=== PATIENT | female | born 1940 | race Caucasian/White ===

== ENCOUNTER → 2016-07-16 | Outpatient (REF) | payer MEDICARE, OTHER ==
[~2016-07-16] MED LIST: /PANT40TA PO; ALEV220C2 PO; ASPI81TA2 PO; BONI150T PO; FEXO60TA PO; FURO40TA2 PO; LOPR50TA PO; METO100T3 PO; TORS100T12 PO; WARF5TAB66 PO
[2016-07-17 12:23] LABS: FREE T4 1.36 NG/DL (0.76-1.46)
[2016-07-18 10:28] LABS: HEPATITIS B SURFACE ANTIBODY NEGATIVE (POSITIVE)
== END ==
LOC: M SFHCCLAY 15:10
PROVIDERS: ATTEND Family Medicine
DX: I48.2 Chronic atrial fibrillation (principal); Z11.59 Encounter for screening for other viral diseases
CPT/HCPCS: 36415; 84439; 84443; 86706; 86708; 87340; G0463

== ENCOUNTER → 2016-08-26 | Outpatient (CLI) | payer MEDICARE, OTHER ==
[~2016-08-26] VITALS: Ht 166.4 cm; Wt 108.9 kg
[~2016-08-26] MED LIST changes: +HYDR25TAB PO; +LIDOCAINE 2% INJ 100 MG/5 ML SDV (FOR ANES.) As Ordered ONE; +METO100T PO; +NS 1,000 ML IV ONE; +PANT40TA2 PO; +PROPOFOL 200 MG/20 ML VIAL As Ordered ONE; +XARE10TA PO
--- NOTE | 2016-08-26 08:31 | ROOR ---
Patient Name: Teresa Alejo Procedure Date: 08/26/2016 7:51 AM Date of : 1940 Age: 76 Room: [facility] Gender: Female Note Status: Finalized Procedure: Colonoscopy Indications: Screening for colorectal malignant neoplasm Providers: Nader GREER MD Referring MD: Cesar Mccollum MD Requesting Provider: Medicines: Monitored Anesthesia Care Complications: No immediate complications. Procedure: Pre-Anesthesia Assessment: - The heart rate, respiratory rate, oxygen saturations, blood pressure, adequacy of pulmonary ventilation, and response to care were monitored throughout the procedure. The Colonoscope was introduced through the anus and advanced to the ileocecal valve. The colonoscopy was performed with moderate difficulty due to dolichocolon. Successful completion of the procedure was aided by changing the patient's position, using manual pressure and withdrawing and reinserting the scope. The patient tolerated the procedure well. The quality of the bowel preparation was good. Findings: The perianal and digital rectal examinations were normal. A frond-like/villous non-obstructing medium-sized mass was found in the proximal ascending colon. The mass was non-circumferential. The mass measured three cm in length. This was biopsied with a cold forceps for histology. The exam was otherwise without abnormality on direct and retroflexion views. Impression: - Rule out malignancy, 3 cm polypoid tumor in the proximal ascending colon. (NOT REMOVED) This was biopsied. - The examination was otherwise normal on direct and retroflexion views. Recommendation: - Refer to a surgeon at appointment to be scheduled. Nader Greer MD Nader GREER MD 08/26/2016 8:31:14 AM This report has been signed electronically. Number of Addenda: 0 Note Initiated On: 08/26/2016 7:51 AM Estimated Blood Loss: Estimated blood loss: none.
[2016-08-26 08:55] VITALS: BP 132/92
== END | disposition home or self-care (01) ==
LOC: M OPP 07:07
PROVIDERS: ATTEND Internal Medicine Gastroenterology
DX: Z12.11 Encounter for screening for malignant neoplasm of colon (principal); D37.4 Neoplasm of uncertain behavior of colon; Q43.9 Congenital malformation of intestine, unspecified; I10 Essential (primary) hypertension; I48.91 Unspecified atrial fibrillation; K21.9 Gastro-esophageal reflux disease without esophagitis; M19.90 Unspecified osteoarthritis, unspecified site; M81.0 Age-related osteoporosis without current pathological fracture; Z78.0 Asymptomatic menopausal state; Z86.711 Personal history of pulmonary embolism; Z86.718 Personal history of other venous thrombosis and embolism; R06.83 Snoring; D68.62 Lupus anticoagulant syndrome; J30.9 Allergic rhinitis, unspecified; Z91.013 Allergy to seafood; Z79.899 Other long term (current) drug therapy; Z79.01 Long term (current) use of anticoagulants; Z87.891 Personal history of nicotine dependence

== ENCOUNTER 2016-10-06 06:08 | Inpatient (IN) | payer MEDICARE, OTHER ==
[~2016-10-06] VITALS: Ht 170.2 cm; Wt 114.4 kg
[2016-10-06] VITALS (8 sets, daily range): BP systolic 120–140; BP diastolic 78–88
[~2016-10-06 06:08] MED LIST changes: +ALLE180T33 PO; -LIDOCAINE 2% INJ 100 MG/5 ML SDV (FOR ANES.) As Ordered ONE; -METO100T PO; +METO100T5 PO; +METO50TA7 PO; -NS 1,000 ML IV ONE; -PROPOFOL 200 MG/20 ML VIAL As Ordered ONE
[2016-10-06] MEDS ORDERED: LR 1,000 ML IV SCH ×2 (06:15→12:15)
[2016-10-06] MEDS ORDERED: ALVIMOPAN 12 MG CAPSULE (ENTEREG) PO ONE (07:00)
[2016-10-06] MEDS ORDERED: ERTAPENEM SODIUM 1 GM in NS MINI-BAG PLUS 50 ML IV ONE (07:00)
[2016-10-06] MEDS ORDERED: MIDAZOLAM INJ 2 MG/2 ML VIAL (J2250) As Ordered ONE (07:02)
[2016-10-06] MEDS ORDERED: LIDOCAINE 1% SDV INJ 30 ML VIAL As Ordered ONE (07:17)
[2016-10-06] MEDS ORDERED: BUPIVACAINE HCL 0.25% 30 ML VIAL As Ordered ONE (07:18)
[2016-10-06] MEDS ORDERED: NEOSTIGMINE 1MG/ML 5 ML SYRINGE (J2710) As Ordered ONE (07:56)
[2016-10-06] MEDS ORDERED: ROCURONIUM BROMIDE 50 MG/5 ML VIAL/SYRINGE As Ordered ONE (07:56)
[2016-10-06] MEDS ORDERED: KETOROLAC 60 MG/2 ML VIAL (J1885) As Ordered ONE (07:56)
[2016-10-06] MEDS ORDERED: GLYCOPYRROLATE INJ 0.2 MG/ML 2 ML VIAL As Ordered ONE (07:56)
[2016-10-06] MEDS ORDERED: ONDANSETRON 4MG/2ML VIAL (J2405) As Ordered ONE (07:56)
[2016-10-06] MEDS ORDERED: LIDOCAINE 2% INJ 100 MG/5 ML SDV (FOR ANES.) As Ordered ONE (07:56)
[2016-10-06] MEDS ORDERED: PROPOFOL 200 MG/20 ML VIAL As Ordered ONE (07:56)
[2016-10-06] MEDS ORDERED: dexameTHASONE 4 MG/ML 1ML VIAL (J1100) As Ordered ONE (07:56)
[2016-10-06] MEDS ORDERED: PHENYLephrine HCL 500 MCG/5 ML (100MCG/ML) SYRINGE (J2370) As Ordered ONE (08:13)
[2016-10-06] MEDS ORDERED: fentaNYL 100 MCG/2 ML INJECTION (J3010) As Ordered ONE (08:19)
[2016-10-06] MEDS ORDERED: BUPIVACAINE LIPOSOME/PF 1.3% 20 ML VIAL (13.3MG/ML)(EXPAREL) As Ordered ONE (10:37)
[2016-10-06] MEDS: LR 1,000 ML IV SCH (11:08)
[2016-10-06] MEDS ORDERED: NORCO, ANEXSIA 5/325MG TABLET (HYDROcodone/ACETAMINOPHEN) PO PRN ×2 (11:15)
[2016-10-06] MEDS ORDERED: MORPHINE 4 MG/ML 1ML SYRINGE IV PRN (11:15)
[2016-10-06] MEDS ORDERED: KETOROLAC 30 MG/ML VIAL (J1885) IV PRN (11:15)
[2016-10-06] MEDS ORDERED: ONDANSETRON 4MG/2ML VIAL (J2405) IV PRN ×2 (11:15→12:15)
[2016-10-06] MEDS ORDERED: METOCLOPRAMIDE INJ 10MG/2ML VIAL (J2765) IV PRN (12:15)
[2016-10-06] MEDS ORDERED: PERCOCET 5MG/325MG TAB PO PRN (12:15)
[2016-10-06] MEDS ORDERED: fentaNYL 100 MCG/2 ML INJECTION (J3010) IV PRN (12:15)
[2016-10-06] MEDS ORDERED: MEPERIDINE INJ 25 MG/ML VIAL (J2175) IV PRN (12:15)
[2016-10-06] MEDS: ENOXAPARIN 40 MG/0.4 ML SYRINGE (J1650) SC SCH (14:12)
[2016-10-06] MEDS: PANTOPRAZOLE 40MG INJ (PROTONIX) (C9113) IV SCH (14:12)
[2016-10-06] MEDS: SENOKOT S TAB PO SCH ×2 (14:12→20:19)
[2016-10-06] MEDS: METOPROLOL TART 50 MG TAB PO SCH ×2 (16:11→20:24)
[2016-10-06] MEDS: ALVIMOPAN 12 MG CAPSULE (ENTEREG) PO SCH (20:27)
[2016-10-06] MEDS ORDERED: METOPROLOL TART 25 MG TABLET PO SCH (21:00)
[2016-10-07] VITALS: BP 118/72
[2016-10-07] MEDS: LR 1,000 ML IV SCH ×4 (00:10→21:10)
[2016-10-07 04:00] VITALS: BP 122/68
[2016-10-07 08:00] VITALS: BP 142/84
[2016-10-07] MEDS: ALVIMOPAN 12 MG CAPSULE (ENTEREG) PO SCH ×2 (08:48→21:09)
[2016-10-07] MEDS: SENOKOT S TAB PO SCH ×2 (08:48→21:09)
[2016-10-07] MEDS: METOPROLOL TART 50 MG TAB PO SCH ×2 (08:49→21:10)
[2016-10-07] MEDS: PANTOPRAZOLE 40MG INJ (PROTONIX) (C9113) IV SCH (08:49)
[2016-10-07] MEDS: ENOXAPARIN 40 MG/0.4 ML SYRINGE (J1650) SC SCH (08:50)
--- NOTE | 2016-10-07 11:04 | IPNPDOC ---
Subjective General Date/Time Seen The patient was seen on 10/07/16 at 10:45. Subject Chief Complaint/History The patient is a 76-year-old female postop day 1 after laparoscopic right colectomy. She reports she is comfortable. Not passing any gas yet. She denies any nausea. She is tolerating liquids. She has walked around room. Current Medications Current Medications Current Medications Acetaminophen (Tylenol Tab) 650 mg Q4HP PRN PO MILD PAIN or TEMP > 101; Start 10/06/16 at 11:15; Stop 11/05/16 at 11:14 Acetaminophen/ Hydrocodone Bitart (Manlius, Anexsia 5/325) 1 tab Q4HP PRN PO MODERATE PAIN (PS 5-7); Start 10/06/16 at 11:15; Stop 10/13/16 at 11:14 Acetaminophen/ Hydrocodone Bitart (Manlius, Anexsia 5/325) 2 tab Q6HP PRN PO SEVERE PAIN (PS 8-10); Start 10/06/16 at 11:15; Stop 10/13/16 at 11:14 Alvimopan (Entereg) 12 mg BID PO Last administered on 10/07/16 08:48; Start at 21:00; Stop 10/13/16 at 20:59 Enoxaparin Sodium (Lovenox) 40 mg DAILY SC Last administered on 10/07/16 08:50 ; Start 10/06/16 at 09:00; Stop 10/11/16 at 08:59; Status Future hold Fentanyl Citrate (Sublimaze) 25 mcg Q5MP PRN IV MODERATE PAIN (PS 4-7); Start 10/06/16 at 12:15; Stop 10/06/16 at 13:15; Status DC Ketorolac Tromethamine (ToRADol) 30 mg Q6HP PRN IV MILD/MODERATE PAIN (PS 1-7) ; Start 10/06/16 at 11:15; Stop 10/11/16 at 11:14 Lactated Ringer's 1,000 ml @ 100 mls/hr Q10H IV Last administered on 07:09; Start 10/06/16 at 06:15; Stop 10/06/16 at 11:44; Status DC Lactated Ringer's 1,000 ml @ 100 mls/hr Q10H IV ; Start 10/06/16 at 12:15; Stop 10/06/16 at 13:15; Status DC Lactated Ringer's 1,000 ml @ 125 mls/hr Q8H IV Last administered on 10/07/16 07:32; Start 10/06/16 at 11:08; Stop 11/05/16 at 11:07 Meperidine HCl (Demerol) 12.5 mg Q5MP PRN IV SHIVERING; Start 10/06/16 at 12:15 ; Stop 10/06/16 at 13:15; Status DC Metoclopramide HCl (REGLAN INJection) 10 mg Q6HP PRN IV NAUSEA OR VOMITING; Start 10/06/16 at 12:15; Stop 10/06/16 at 13:15; Status DC Metoprolol Tartrate (Lopressor) 25 mg BID PO ; Start 10/06/16 at 21:00; Stop at 21:00; Status DC Metoprolol Tartrate (Lopressor) 50 mg BID PO Last administered on 10/07/16 08: 49; Start 10/06/16 at 09:00; Stop 11/05/16 at 08:59 Morphine Sulfate (Morphine Sulfate Inj) 4 mg Q2HP PRN IV SEVERE PAIN (PS 8-10) ; Start 10/06/16 at 11:15; Stop 10/13/16 at 11:14 Ondansetron HCl (ZOFRAN INJection) 4 mg Q4HP PRN IV NAUSEA OR VOMITING; Start 10/06/16 at 12:15; Stop 10/06/16 at 13:15; Status DC Ondansetron HCl (ZOFRAN INJection) 4 mg Q6HP PRN IV NAUSEA OR VOMITING; Start 10/06/16 at 11:15; Stop 11/05/16 at 11:14 Oxycodone/ Acetaminophen (Percocet 5mg/ 325mg Tablet) 1 tab ASDIRECTED PRN PO MILD/MODERATE PAIN (PS 1-7); Start 10/06/16 at 12:15; Stop 10/06/16 at 13:15; Status DC Pantoprazole Sodium (Protonix) 40 mg DAILY IV Last administered on 10/07/16 08 :49; Start 10/06/16 at 09:00; Stop 7/26/17 at 08:59 Senna/Docusate Sodium (Senokot S) 1 tab BID PO Last administered on 10/07/16t 08:48; Start 10/06/16 at 09:00; Stop 11/05/16 at 08:59 Allergies Coded Allergies: ENVIROMENTAL (Unverified Allergy, Mild, 10/06/16) SEAFOOD (Verified Adverse Reaction, Mild, NAUSEA/VOMITING, 08/18/16) Objective Physical Examination Examination GENERAL APPEARANCE:Patient seen, laying in bed, awake, alert, and oriented. Comfortable, in no acute distress. SKIN: Warm and moist. HEENT: Normocephalic, atraumatic. Abanda palpebral conjunctiva, anicteric sclerae. Lips and mucosa appear moist. NECK: Supple, no thyromegaly. No obvious jugular venous distention. LUNGS: Clear to auscultation bilaterally. No wheezing appreciated. HEART: No chest wall abnormalities. Regular rate and rhythm with no murmurs appreciated. ABDOMEN: Abdomen is obese, soft, round, mildly distended, slightly tympanitic. Port sites and periumbilical extraction site are clean and dry. The dressings over the extraction site was removed. Incision is intact. Minimally tender over the extraction site incision. Active bowel sounds.. EXTREMITIES: Extremities have no deformities. No edema identified. Vital Signs Vital Signs Date Time Temp Pulse Resp B/P (MAP) Pulse Ox O2 Delivery O2 Flow Rate FiO2 10/07/16 08:49 87 142/84 10/07/16 04:00 99.6 18 94 Room Air 10/06/16 14:05 1.0 I&Os I&O- Last 24 Hours up to 6 AM 10/07/16 06:00 Intake Total 3840 ml Output Total 1200 ml Balance 2640 ml Impression Postop day 1 right colectomy for ascending colon polyp pathology is pending Instructed her to ambulate to the hallways today. The Hutton catheter will be discontinued. We will get labs tomorrow and decide if we can restart her Xarelto. I'll advance her diet to regular diet. Plan / VTE VTE Prophylaxis Ordered?: Yes Plan / Urinary Catheter Urinary Catheter: D/C Hutton Reason for insertion/continuin: Perioperative TITUS VALDEZ MD Oct 07, 2016 11:04
[2016-10-07 12:00] VITALS: BP 122/89
[2016-10-07 16:00] VITALS: BP 136/78
[2016-10-07 20:00] VITALS: BP 122/87
[2016-10-08] VITALS: BP 128/64
[2016-10-08] MEDS: ACETAMINOPHEN TAB 650MG DOSE (2X325MG) PO PRN ×2 (01:57→08:45)
[2016-10-08] MEDS: LR 1,000 ML IV SCH (03:08)
[2016-10-08 07:07] LABS: BASO % 0.5 % (0.0-1.0); EOS # 0.1 K/mm3 (0.0-0.50); EOS % 2.2 % (0.0-3.0); LARGE UNSTAINED CELL # 0.1 K/mm3 (0.0-0.4); LARGE UNSTAINED CELL % 1.8 % (0.0-4.0); LYMPH # 1.6 K/mm3 (1.5-4.5); LYMPH % 25.4 % (24.0-44.0); MEAN CORPUSCULAR HEMOGLOBIN 32.3 pg (27.0-33.0); MEAN CORPUSCULAR HGB CONC 33.6 g/dl (32.0-36.5); MEAN CORPUSCULAR VOLUME 96.2 fl (80.0-96.0); MONO # 0.4 K/mm3 (0.0-0.8); NEUTROPHILS # 3.8 K/mm3 (1.8-7.7); NEUTROPHILS % 63.2 % (36.0-66.0); PLATELET COUNT, AUTOMATED 252 k/mm3 (150-450); RED CELL DISTRIBUTION WIDTH 13.8 % (11.5-14.5)
[2016-10-08 07:20] LABS: CALCIUM LEVEL 9.8 MG/DL (8.8-10.2); CREATININE FOR GFR 1.06 MG/DL (0.55-1.02); GLOMERULAR FILTRATION RATE 53.9 (>39); POTASSIUM SERUM 3.8 MEQ/L (3.5-5.1)
[2016-10-08 08:00] VITALS: BP 162/90
[2016-10-08] MEDS: METOPROLOL TART 50 MG TAB PO SCH ×2 (08:44→20:50)
[2016-10-08] MEDS: ENOXAPARIN 40 MG/0.4 ML SYRINGE (J1650) SC SCH (08:46)
[2016-10-08] MEDS: SENOKOT S TAB PO SCH ×2 (08:46→20:49)
[2016-10-08] MEDS: ALVIMOPAN 12 MG CAPSULE (ENTEREG) PO SCH ×2 (08:46→20:49)
[2016-10-08] MEDS: PANTOPRAZOLE 40MG INJ (PROTONIX) (C9113) IV SCH (08:46)
[2016-10-08] MEDS: hydroCHLOROthiazide 25 MG TAB PO SCH (11:49)
[2016-10-08] MEDS ORDERED: SLF 3 ML SYR IV PRN (12:00)
[2016-10-08] MEDS ORDERED: SLF 3 ML SYR IV SCH (14:00)
[2016-10-08 16:00] VITALS: BP 134/88
[2016-10-08] MEDS ORDERED: RIVAROXABAN 20 MG TAB (XARELTO) PO SCH (18:00)
[2016-10-08 20:00] VITALS: BP 141/95
[2016-10-09] VITALS: BP 144/99
[2016-10-09 04:00] VITALS: BP 123/90
[2016-10-09 08:00] VITALS: BP 158/92
[2016-10-09] MEDS: ALVIMOPAN 12 MG CAPSULE (ENTEREG) PO SCH (08:40)
[2016-10-09] MEDS: hydroCHLOROthiazide 25 MG TAB PO SCH (08:40)
[2016-10-09] MEDS: SENOKOT S TAB PO SCH (08:41)
[2016-10-09 08:43] VITALS: BP 158/92
[2016-10-09] MEDS: METOPROLOL TART 50 MG TAB PO SCH (08:43)
[2016-10-09] MEDS ORDERED: PANTOPRAZOLE 40MG TAB (PROTONIX) PO SCH (09:00)
--- NOTE | 2016-10-20 23:44 | ROOPDOC ---
[facility] Report Of Operation Report of Operation DATE OF PROCEDURE: 10/06/16 PREPROCEDURE DIAGNOSES: ascending colon polyp POSTPROCEDURE DIAGNOSES: ascending colon polyp PROCEDURE: Laparoscopic Right Colectomy with Ileo-Colic Anastomosis. SURGEON: Giacomo Sharma MD ENERGY AUDIT ADVISOR: MD Jesse Hernandez Anthonyalta, MS III ANESTHESIA: general ESTIMATED BLOOD LOSS: Approximately 30 mL. COMPLICATIONS: none. REMARKS: a 2 to 3 cm polyp located at just above cecum noted on opening up the specimen. PROCEDURE NOTE: 76 F who underwent screening colonoscopy and was found to have a large polyp at the ascensding colon which was deemed to dangerous to resect endoscopically and sent to us for consideration for colon resection. DESCRIPTION OF PROCEDURE: Patient was given a dose of Invanz preoperatively for wound prophylaxis. She had bowel prep the night prior including doses of metronidazole and neomycin. She was brought to the operating room, placed supine on the table. General endotracheal anesthesia started. Compression boots were placed on her lower extremities for DVT prophylaxis. Hutton catheter was placed for urine output monitoring. Her abdomen then widely prepped and draped in usual sterile fashion. After surgical timeout, we began our surgery. Entry into the abdomen done through a small incision in the left upper quadrant area. A Veress needle was inserted on a controlled fashion. Intra-abdominal insufflation then started using CO2 to a pressure of 15 mmHg. Using the same incision a 5 mm port was placed under direct vision of laparoscope. The insertion site was inspected for injury and none was found. She was placed on the slight reverse Trendelenburg position. There are some adhesions over the midline abdomen which was lysed using harmonic scalpel. After freeing up the area just above the umbilicus and another 5 mm port was placed. A third working port was placed over the left lower quadrant area. Diagnostic laparoscopy there were thick omentum covering most of the colon. In my conversation with Dr. Greer, she told me that he marked the area of the polyp within in the ink tattoo. So I looked for the evidence of tattoo and could not locate this. I started at the cecum going towards the mid transverse colon. The omental adhesions as well as the gastrocolic ligament was freed to be able to look for evidence of tattooing. After not being able to find any tattoo, I palpated from the cecum towards the hepatic flexure and mid transverse colon and was not certain where the polyp was located by palpation. At this point I proceeded by freeing up the right colon. The right lateral attachments of the cecum towards the hepatic flexure was freed up likewise its posterior adhesions to withdraw this fascia. The hepatic flexure was tethered down and freed from its adhesions to the lateral abdominal wall, gallbladder, liver and posteriorly from the retroperitoneal structures. The duodenum was promptly identified and dissected away from the colon. The gastrocolic ligament was freed up as we entered the lesser sac. Likewise the omentum was freed up from the transverse colon down to beyond the midline. With this maneuvers the right colon is able to be rotated medially towards the midline. Not knowing exactly where the lesion is I could not definitely be certain where my margins are. Thus I opened up the umbilical incision to about a 3 cm vertical incision around the umbilicus. A 1 protector was used. The right colon was delivered into the wound as I palpate forward the lesion is. I located the polyp just above the cecum. At this point I determined my margins of resection. The terminal ileum was divided using 75 mm stapler with a blue load. Using LigaSure device the mesentery was widely dissected while I palpate for the ileocolic artery. Distal margin of resection was likewise determined more to 5 cm away from our area right after the hepatic flexure. This was again divided with 75 mm stapler with a blue load the continued taking down the mesentery widely the ileocolic artery was circumferentially dissected and clipped and divided. At this point the right colon was removed this was taken at the back table and opened up to confirm the presence of the polyp intraluminally. Once we had determined that we have adequate resection margins an ileal colic anastomosis was fashioned in a [id number] anatomic fashion using 75 mm with a blue load and a TA 60 with a green load to close the enterotomy colotomy. The mesenteric defect was closed with a running stitch of 2-0 Vicryl. This was then placed back into the abdomen the wound protector was removed and a separate closing tray was used for closure of the incision. The fascial defect was closed with a running suture of 1 Vicryl. We resumed pneumoperitoneum checked internally for anastomosis checked this under water to make sure we have adequate seal in our anastomosis. Likewise we checked for adequate hemostasis. Once satisfied the abdomen was deflated and all ports were removed as we only have 5 mm ports the all the skin incisions were closed with holly. Gauze dressings were then used for wound coverage covered with tape. Patient was promptly awakened and extubated but recovery in stable. TITUS SHARMA MD Oct 06, 2016 11:08
--- NOTE | 2016-10-20 23:52 | DS.PDOC ---
Discharge Summary General Date of Admission Oct 06, 2016 at 06:08 Date of Discharge 10/09/2016 Attending Physician: TITUS VALDEZ MD Discharge Summary PROCEDURES PERFORMED DURING STAY: Laparoscopic right colectomy ADMITTING DIAGNOSES: 1. Large polyp, ascending colon 2. History of atrial fibrillation on Xarelto 3. History of pulmonary embolism DISCHARGE DIAGNOSES: 1. Large polyp, ascending colon 2. History of atrial fibrillation on Xarelto 3. History of pulmonary embolism COMPLICATIONS/CHIEF COMPLAINT: Transverse Colon Polyp. HISTORY OF PRESENT ILLNESS: See HPI. HOSPITAL COURSE: Patient underwent laparoscopic right colectomy for a non- endoscopically resectable ascending colon polyp found on colonoscopy. She was admitted to the [facility] in stable condition. She was started on clear liquids the night of the surgery. Her Hutton catheter was discontinued on postoperative day 1. She was instructed to ambulate to hallways. She started passing flatus by postoperative day #2. She was advanced to regular diet. Her hemoglobin and hematocrit was checked and was noted to be stable and sent her Xarelto was resumed on postoperative day #2. She tolerated diet and had a bowel movement on postoperative day #3 no subsequently discharged home in stable with holly intact. DISCHARGE MEDICATIONS: Please see below. ALLERGIES: Please see below. PHYSICAL EXAMINATION ON DISCHARGE: VITAL SIGNS: Please see below. GENERAL: Comfortable HEENT: Atraumatic, pink palpebral conjunctiva NECK: Supple, no jugular venous distention CARDIOVASCULAR EXAMINATION: Irregular rhythm, rate in the 80s, no murmurs RESPIRATORY EXAMINATION: Clear breath sounds ABDOMINAL EXAMINATION: Round, soft, nondistended. [place] lines and incisions intact. Nontender and palpation. EXTREMITIES: No edema SKIN: Or rashes NEUROLOGICAL EXAMINATION: Awake alert and oriented PSYCHIATRIC EXAMINATION:, Appropriate mood and affect LABORATORY DATA: Please see below. IMAGING: None PROGNOSIS: Good ACTIVITY: Light activity for 2 weeks. DIET: Regular diet. DISCHARGE PLAN: Discharged to home DISPOSITION: 01 Home, Self-Care. DISCHARGE INSTRUCTIONS: 1. Patient may shower 2. May leave incision open to air. . 3. Follow up with me in 2 weeks' time to remove holly. ITEMS TO FOLLOWUP ON ON OUTPATIENT: 1. Review pathology. 2. Remove holly. . DISCHARGE CONDITION: Stable. TIME SPENT ON DISCHARGE: Greater than 30 minutes. Discharge Medications Scheduled Fexofenadine Hydrochloride (Sun Allergy) 180 Mg Tab, 180 MG PO DAILY, ( Reported) Hydrochlorothiazide (Hydrochlorothiazide) 25 Mg Tab, 25 MG PO DAILY, (Reported) Ibandronate Sodium (Boniva) 150 Mg Tab, 150 MG PO QMONTH, (Reported) Metoprolol Tartrate (Metoprolol Tartrate) 50 Mg Tab, 50 MG PO BID, (Reported) Pantoprazole Sodium (Pantoprazole Sodium) 40 Mg Tab, 40 MG PO DAILY, (Reported) Rivaroxaban (Xarelto) 10 Mg Tab, 20 MG PO DAILY, (Reported) Allergies Coded Allergies: ENVIROMENTAL (Unverified Allergy, Mild, 10/06/16) SEAFOOD (Verified Adverse Reaction, Mild, NAUSEA/VOMITING, 08/18/16) TITUS VALDEZ MD Oct 20, 2016 23:52
== END 2016-10-09 13:20 | disposition home or self-care (01) | DRG 330 ==
LOC: M OR 06:08 → M PED 12:06
PROVIDERS: ADMIT Surgery; ATTEND Surgery
PROC: 0DTF4ZZ Resection of Right Large Intestine, Percutaneous Endoscopic Approach (ICD-10-PCS; principal; 2016-10-06 07:30)
DX: D12.2 Benign neoplasm of ascending colon (principal); D68.62 Lupus anticoagulant syndrome; I48.91 Unspecified atrial fibrillation; Z86.711 Personal history of pulmonary embolism; Z79.899 Other long term (current) drug therapy; Z91.013 Allergy to seafood; I10 Essential (primary) hypertension; K21.9 Gastro-esophageal reflux disease without esophagitis; M19.90 Unspecified osteoarthritis, unspecified site

== ENCOUNTER 2017-11-20 11:44 | Day surgery (SDC) | payer MEDICARE, OTHER ==
[~2017-11-20 11:44] MED LIST changes: -/PANT40TA PO; -ALEV220C2 PO; -ALLE180T33 PO; -ASPI81TA2 PO; -BONI150T PO; -FEXO60TA PO; -FURO40TA2 PO; -HYDR25TAB PO; +LIDOCAINE 2% INJ 100 MG/5 ML SDV (FOR ANES.) As Ordered; -LOPR50TA PO; -METO100T3 PO; -METO100T5 PO; -METO50TA7 PO; -PANT40TA2 PO; -TORS100T12 PO; -WARF5TAB66 PO; -XARE10TA PO
[2017-11-20] MEDS ORDERED: PROPOFOL 200 MG/20 ML VIAL As Ordered (13:41)
[2017-11-20] MEDS ORDERED: LABETALOL HCL 100 MG/20 ML VIAL As Ordered (13:51)
== END 2017-11-20 14:52 | disposition home or self-care (01) ==
LOC: M OPP 11:44
DX: Z08 Encounter for follow-up examination after completed treatment for malignant neoplasm (principal); Z85.038 Personal history of other malignant neoplasm of large intestine; D12.0 Benign neoplasm of cecum; I10 Essential (primary) hypertension; K21.9 Gastro-esophageal reflux disease without esophagitis; I48.91 Unspecified atrial fibrillation; D68.62 Lupus anticoagulant syndrome; M81.0 Age-related osteoporosis without current pathological fracture; R32 Unspecified urinary incontinence; M19.90 Unspecified osteoarthritis, unspecified site; Z79.899 Other long term (current) drug therapy; Z91.013 Allergy to seafood; J30.2 Other seasonal allergic rhinitis; Z91.89 Other specified personal risk factors, not elsewhere classified; Z86.711 Personal history of pulmonary embolism; Z86.718 Personal history of other venous thrombosis and embolism; Z90.49 Acquired absence of other specified parts of digestive tract; Z82.49 Family history of ischemic heart disease and other diseases of the circulatory system
CPT/HCPCS: 45385

== ENCOUNTER → 2017-12-28 | Outpatient (REF) | payer MEDICARE, OTHER ==
[2017-12-29 11:35] LABS: BASO # 0.1 10^3/uL (0.0-0.2); EOS # 0.1 10^3/uL (0.0-0.50); EOS % 0.9 % (0.0-3.0); HEMATOCRIT 45.6 % (36.0-47.0); HEMOGLOBIN 14.7 g/dl (12.0-15.5); IMMATURE GRANULOCYTE % 0.6 % (0-3.0); LYMPH # 1.8 10^3/uL (1.5-4.5); LYMPH % 26.4 % (24.0-44.0); MEAN CORPUSCULAR HEMOGLOBIN 27.5 pg (27.0-33.0); MEAN CORPUSCULAR HGB CONC 32.2 g/dl (32.0-36.5); MEAN CORPUSCULAR VOLUME 85.4 fl (80.0-96.0); MONO # 0.6 10^3/uL (0.0-0.8); MONO % 8.9 % (0.0-5.0); NEUTROPHILS # 4.4 10^3/uL (1.8-7.7); NEUTROPHILS % 62.2 % (36.0-66.0); PLATELET COUNT, AUTOMATED 405 10^3/uL (150-450); RED BLOOD COUNT 5.34 10^6/uL (4.00-5.40); RED CELL DISTRIBUTION WIDTH 17.1 % (11.5-14.5)
[2017-12-29 11:42] LABS: APPEARANCE, URINE HAZY (CLEAR); BACTERIA, URINE AUTO 3+ (NEGATIVE); BILIRUBIN, URINE AUTO NEGATIVE (NEGATIVE); BLOOD, URINE BLOOD NEGATIVE (NEGATIVE); COLOR, URINE YELLOW (YELLOW); GLUCOSE, URINE (UA) AUTO NEGATIVE (NEGATIVE); KETONE, URINE AUTO NEGATIVE (NEGATIVE); LEUKOCYTE ESTERASE, URINE AUTO 1+ (NEGATIVE); MUCUS, URINE SMALL (NEGATIVE); NITRITE, URINE AUTO NEGATIVE (NEGATIVE); PROTEIN, URINE AUTO 1+ mg/dL (NEGATIVE); RBC, URINE AUTO 2 /HPF (0-3); SPECIFIC GRAVITY URINE AUTO 1.019 (1.002-1.035); SQUAMOUS EPITHELIAL CELL UR AU 1 /HPF (0-6); WBC, URINE AUTO 61 /HPF (0-3)
[2017-12-29 11:49] LABS: ALBUMIN 3.5 GM/DL (3.2-5.2); ALBUMIN/GLOBULIN RATIO 0.95 (1.00-1.93); ALKALINE PHOSPHATASE 128 U/L (45-117); ALT/SGPT 24 U/L (12-78); ANION GAP 9 MEQ/L (8-16); AST/SGOT 24 U/L (7-37); BILIRUBIN,TOTAL 0.8 MG/DL (0.2-1.0); BLOOD UREA NITROGEN 21 MG/DL (7-18); CALCIUM LEVEL 10.3 MG/DL (8.8-10.2); CARBON DIOXIDE LEVEL 25 MEQ/L (21-32); CHLORIDE LEVEL 106 MEQ/L (98-107); CHOLESTEROL LEVEL 184 MG/DL (<200); CHOLESTEROL RISK RATIO 2.453 (<5); CREATININE FOR GFR 1.61 MG/DL (0.55-1.30); GLOMERULAR FILTRATION RATE 33.2 (>39); GLUCOSE, FASTING 94 MG/DL (70-100); HDL CHOLESTEROL 75 MG/DL (>40); LDL CHOLESTEROL 86 MG/DL (<100); NON-HDL-C 109 MG/DL; POTASSIUM SERUM 4.3 MEQ/L (3.5-5.1); SODIUM LEVEL 140 MEQ/L (136-145); TOTAL PROTEIN 7.2 GM/DL (6.4-8.2); TRIGLYCERIDES LEVEL 114 MG/DL (<150)
[2017-12-29 11:53] LABS: PTH INTACT 475.4 PG/ML (18.5-88.0)
== END ==
LOC: M SFHCCLAY 14:43
DX: E21.3 Hyperparathyroidism, unspecified (principal); I10 Essential (primary) hypertension; R32 Unspecified urinary incontinence; Z51.81 Encounter for therapeutic drug level monitoring; Z79.01 Long term (current) use of anticoagulants
CPT/HCPCS: 80053

== ENCOUNTER → 2018-10-01 | Outpatient (REF) | payer MEDICARE, OTHER ==
[~2018-10-01] MED LIST changes: +ALEV220C2 PO; +ALLE180T33 PO; +ASPI81TA2 PO; +BONI150T PO; +BONI1TAB PO; +FEXO60TA PO; +FURO40TA2 PO; +HYDR25TAB PO; -LIDOCAINE 2% INJ 100 MG/5 ML SDV (FOR ANES.) As Ordered; +LOPR50TA PO; +METO100T3 PO; +METO100T5 PO; +METO50TA7 PO; +PANT40TA3 PO; +PROT1TAB2 PO; +TORS100T12 PO; +WARF5TAB66 PO; +XARE10TA PO
[2018-10-01 16:31] LABS: BASO # 0.1 10^3/uL (0.0-0.2); BASO % 0.8 % (0.0-1.0); EOS # 0.1 10^3/uL (0.0-0.50); HEMATOCRIT 40.8 % (36.0-47.0); HEMOGLOBIN 13.5 g/dl (12.0-15.5); LYMPH # 1.6 10^3/uL (1.5-4.5); LYMPH % 21.9 % (24.0-44.0); MEAN CORPUSCULAR HGB CONC 33.1 g/dl (32.0-36.5); MEAN CORPUSCULAR VOLUME 96.7 fl (80.0-96.0); MONO # 0.6 10^3/uL (0.0-0.8); MONO % 7.8 % (0.0-5.0); NEUTROPHILS # 4.7 10^3/uL (1.8-7.7); NEUTROPHILS % 66.5 % (36.0-66.0); PLATELET COUNT, AUTOMATED 271 10^3/uL (150-450); RED BLOOD COUNT 4.22 10^6/uL (4.00-5.40); WHITE BLOOD COUNT 7.1 10^3/uL (4.0-10.0)
[2018-10-01 16:59] LABS: ALBUMIN 3.1 GM/DL (3.2-5.2); BILIRUBIN,TOTAL 0.7 MG/DL (0.2-1.0); CALCIUM LEVEL 10.6 MG/DL (8.8-10.2); CREATININE FOR GFR 1.62 MG/DL (0.55-1.30); FREE T4 1.36 NG/DL (0.76-1.46); GLOMERULAR FILTRATION RATE 32.9 (>39); POTASSIUM SERUM 4.4 MEQ/L (3.5-5.1); PTH INTACT 388.5 PG/ML (18.5-88.0); THYROID STIMULATING HORMONE 1.76 uIU/ML (0.358-3.740); TOTAL PROTEIN 6.5 GM/DL (6.4-8.2)
== END ==
LOC: M SFHCCLAY 11:24
PROVIDERS: ATTEND Family Medicine
DX: I10 Essential (primary) hypertension (principal); E21.3 Hyperparathyroidism, unspecified; I48.2 Chronic atrial fibrillation; Z79.01 Long term (current) use of anticoagulants
CPT/HCPCS: 36415; 80053; 83970; 84439; 84443; 85025; G0463

== ENCOUNTER → 2019-05-18 | Outpatient (REF) | payer MEDICARE, OTHER ==
[2019-05-18 17:59] LABS: ALBUMIN 3.6 GM/DL (3.2-5.2); BILIRUBIN,TOTAL 1.3 MG/DL (0.2-1.0); CALCIUM LEVEL 11.3 MG/DL (8.8-10.2); CREATININE FOR GFR 1.81 MG/DL (0.55-1.30); GLOMERULAR FILTRATION RATE 28.9 (>39); POTASSIUM SERUM 3.6 MEQ/L (3.5-5.1); TOTAL PROTEIN 6.8 GM/DL (6.4-8.2)
== END ==
LOC: M SFHCCLAY 13:39
PROVIDERS: ATTEND Family Medicine
DX: I10 Essential (primary) hypertension (principal)
CPT/HCPCS: 80053; G0463

== ENCOUNTER → 2020-03-07 | Outpatient (REF) | payer MEDICARE, OTHER ==
[~2020-03-07] MED LIST changes: +PANT40TA29 PO; -PANT40TA3 PO
[2020-03-07 16:55] LABS: CREATININE FOR GFR 2.41 MG/DL (0.55-1.30); GLOMERULAR FILTRATION RATE 20.7 (>39); POTASSIUM SERUM 4.3 MEQ/L (3.5-5.1); TOTAL PROTEIN 6.7 GM/DL (6.4-8.2)
[2020-03-07 17:07] LABS: PTH INTACT 331.4 PG/ML (18.5-88.0); TOTAL 25(OH) VITAMIN D 13.8 NG/ML (30.0-100.0)
[2020-03-09 14:18] LABS: ALBUMIN 3.66 GM/DL (3.29-5.55); ALBUMIN % 54.7 % (55.8-66.1); ALPHA-1-GLOBULINS 0.34 GM/DL (0.17-0.41); ALPHA-2-GLOBULINS % 10.5 % (7.1-11.8); BETA-1-GLOBULINS 0.46 GM/DL (0.28-0.60); BETA-1-GLOBULINS % 6.8 % (4.7-7.2); BETA-2-GLOBULINS 0.44 GM/DL (0.19-0.55); BETA-2-GLOBULINS % 6.6 % (3.2-6.5); GAMMA GLOBULIN % 16.4 % (11.1-18.8)
== END ==
LOC: M SFHCCLAY 10:56
PROVIDERS: ATTEND Family Medicine
DX: E21.3 Hyperparathyroidism, unspecified (principal); N18.32 Chronic kidney disease, stage 3b; Z13.21 Encounter for screening for nutritional disorder
CPT/HCPCS: 80048; 82306; 83970; 84165; 84166; G0463

== ENCOUNTER → 2020-07-04 | Outpatient (REF) | payer MEDICARE, OTHER ==
[~2020-07-04] MED LIST changes: +HYDR-3490 PO; -HYDR25TAB PO
[2020-07-04 16:23] LABS: ALBUMIN 3.7 GM/DL (3.2-5.2); BILIRUBIN,TOTAL 0.8 MG/DL (0.2-1.0); CREATININE FOR GFR 1.59 MG/DL (0.55-1.30); GLOMERULAR FILTRATION RATE 33.5 (>39); POTASSIUM SERUM 4.5 MEQ/L (3.5-5.1)
== END ==
LOC: M SFHCCLAY 13:38
PROVIDERS: ATTEND Family Medicine
DX: E83.52 Hypercalcemia (principal)
CPT/HCPCS: 80053; 82330; G0463

== ENCOUNTER → 2020-12-19 | Outpatient (REF) | payer MEDICARE, OTHER ==
[2020-12-19 16:31] LABS: CALCIUM LEVEL 10.9 MG/DL (8.8-10.2); CREATININE FOR GFR 1.55 MG/DL (0.55-1.30); GLOMERULAR FILTRATION RATE 34.4 (>39); POTASSIUM SERUM 4.4 MEQ/L (3.5-5.1)
[2020-12-19 16:42] LABS: TOTAL 25(OH) VITAMIN D 26.3 NG/ML (30.0-100.0)
== END ==
LOC: M SFHCCLAY 12:09
PROVIDERS: ATTEND Family Medicine
DX: I11.9 Hypertensive heart disease without heart failure (principal); E83.52 Hypercalcemia; E55.9 Vitamin D deficiency, unspecified
CPT/HCPCS: 80048; 82306; G0463

== ENCOUNTER 2021-02-09 20:49 | Inpatient (IN) | payer MEDICARE, OTHER ==
[~2021-02-09] VITALS: Ht 170.2 cm; Wt 90.9 kg
--- OUTSIDE RECORDS SUMMARY | 2021-02-09 20:53 | CCD | Continuity of Care Document ---
Author Author Teresa JESUS M.D. Organization Unknown Address [address] [place] [id number] Phone [phone] Care Team Providers Care Drapery Cutter Machine Name Role Phone Lily Carrington DO AUTM [phone] Problems Active Problems Provider Date Screening for malignant neoplasm of colon Hany frazier M.D. Onset: 07/31/2020 Irritable bowel syndrome Hany Jesus M.D. Onset: Social History Type Date Description Comments Sex Unknown ETOH Use Denies alcohol use Tobacco Use Start: Unknown End: Unknown Patient is a former smoker QUIT 50 YEARS AGO Allergies and adverse reactions Active Allergies Criticality Reaction | Severity Comments Date Zithromax Unable to assess criticality 07/31/2020 Uloric Unable to assess criticality 07/31/2020 Medications Active Medications SIG Qnty Indications Ordering Provide r Date Align 4mg Capsules 1 cap by mouth every morning benita Jesus M.D. 021 Xarelto 20mg Tablets Unknown Pantoprazole Sodium 40mg Tablets DR Unknown Metoprolol Tartrate 50mg Tablets Lily Carrington DO History Medications Metamucil Smooth Texture Sugar Free 58.6% Powder 1 cap in 8 ozs of water daily Rosio galindo M.D. 07/31/2020 - 01/02/2021 Align 4mg Capsules 1 cap by mouth every morning 90tiara Jesus M.D. 021 - 01/02/2021 Immunizations Description No Information Available Vital Signs Date Vital Result Comment 01/03/2021 3:24pm Height 66 inches 5'6" Weight 204.00 lb BP Systolic 132 mmHg BP Diastolic 84 mmHg Heart Rate 72 /min BMI (Body Mass Index) 32.9 kg/m2 Weight 92.534 kg Body Temperature 97.0 F 07/31/2020 1:45pm Height 66 inches 5'6" Weight 202.00 lb BP Systolic 129 mmHg BP Diastolic 82 mmHg Heart Rate 89 /min BMI (Body Mass Index) 32.6 kg/m2 Weight 91.627 kg Body Temperature 97.7 F Results Description No Information Available Procedures Date Code Description Status 01/03/2021 21273 Office/Outpatient Established Lo w MDM 20-29 Min Completed 07/31/2020 93585 Office/Outpatient New Low MDM 30 -44 Minutes Completed Medical Devices Description No Information Available Encounters Type Date Location Provider Dx Diagnosis Office Visit 01/03/2021 2:45p Main Office Hany Jesus M.D. K 58.9 Irritable bowel syndrome without diarrhea Office Visit 07/31/2020 1:00p Main Office Hany Jesus M.D. Z 86.010 Personal history of colonic polyps Assessments Date Code Description Provider 01/03/2021 K58.9 Irritable bowel syndrome Hany Jesus M.D. 07/31/2020 Z86.010 History of polyp of colon Hany Jesus M.D. Plan of Treatment 01/03/2021 - Hany Jesus M.D.* K58.9 Irritable bowel syndrome* Comments: * 80 yo wf who presents for a h/o irregular bowel habits. Last scope was in 2018. No c/o abdominal pain, weight loss, change in bowel habits, or rectal bleeding. No family h/o colon cancer. No h/o chest pain, or sob. Pt apparently has had colon cancer. Plan:1. Feels improved.2. HFD3. Maintain Metamucil4.Office prn. Functional Status Description No Information Available Mental Status Description No Information Available Referrals Description No Information Available
--- OUTSIDE RECORDS SUMMARY | 2021-02-09 20:53 | CCD ---
Author Author [facility] Organization [facility] Address Unknown Phone Unavailable Care Team Providers Care Lei Seller Name Role Phone Lily Carrington Unavailable PROBLEMS Type Condition ICD9-CM Code SZK83-DO Code Onset Dates Condition S tatus W/U Status Risk SNOMED Code Notes Problem Hyperparathyroidism E21.3 Active confirmed 75906064 Problem Lupus anticoagulant positive R76.0 Active confirme d 55433412 Problem History of pulmonary embolism Z86.711 Active confir med 865727846 Problem Chronic atrial fibrillation I48.2 Active confirmed 807319501 Problem Gastroesophageal reflux disease, esophagitis pre sence not specified K21.9 Active confirmed 852135067 Problem Hypercalcemia E83.52 Active confirmed 138962 09 Problem skilled nursing current use of anticoagulant Z79.01 A ctive confirmed 142306094 Problem Vitamin D deficiency E55.9 Active confirmed 22372050 Problem Essential (primary) hypertension I10 Active conf irmed 10923627 Problem Urinary incontinence, unspecified type R32 A ctive confirmed 323701265 Problem Osteoarthritis of left knee, unspecified osteoarthritis ty pe M17.12 Active confirmed [id number] Problem Atrial fibrillation, unspecified type I48.91 Ac tive confirmed 88571994 Problem Hypertensive heart disease without heart failure I 11.9 Active confirmed 97990801 ALLERGIES Allergen (clinical drug ingredient) Drug/Non Drug Allergy do cumented on EMR Reaction Allergy Type Onset Date Status Seafood Seafood Unk[place] Non Drug Allergy Active Dogs Congestion Non Drug Allergy Active Seasonal [place] Non Drug Allergy Active ENCOUNTERS from 1942 to 2020-12-20 Encounter Location Date Provider Diagnosis [facility] [address] [phone] [place] [id number] Dec, 2020 Lily Carrington Hypertensive heart disease without heart failure I11.9 ; Hypercalcemia E83.52 and Vitamin D deficiency E55.9 IMMUNIZATIONS Vaccine Route Administration Date Status Influenza Pharmacy Given Unknown Jan 14, 2020 Adminis tered Influenza Pharmacy Given Unknown Feb 27, 2018 Adminis tered Influenza 18 yrs & older Flublok IM Intramuscular Jan 31, 2019 Administered Influenza (High Dose 65 & up) Unknown Feb 27, 2017 Ad ministered Influenza (High Dose 65 & up) Unknown Feb 11, 2015 Ad ministered Pneumococcal 0.5mL Prevnar 13 Unknown Feb 11, 2015 Ad ministered Influenza 6mo & up Fluzone IM Intramuscular Jan 12, 2014 Admi nistered Influenza 6mo & up Fluzone Unknown Jan 24, 2011 Admin istered Influenza 6mo & up Fluzone Unknown Jan 10, 2010 Admin istered SOCIAL HISTORY Tobacco Use: Social History Observation Description Date Details (start date - stop date) Former Smoker Sex Assigned At : Social History Observation Description Sex Assigned At Unknown Education: Question Answer Notes Level of Education: College Audit Question Answer Notes Total Score: 0 Interpretation: Alcohol Education Language: Question Answer Notes Languages spoken: Lao Gnosticist: Question Answer Notes Gnosticist No restorationist beliefs that would impact health care. Domestic Violence: Question Answer Notes Status: Sexual Hx: Question Answer Notes Had sex in the last 12 months (vaginal, oral, or anal)? No Have you ever had an STD? No Drug and Alcohol Question Answer Notes Total Score: 0 Interpretation: No problems reported Alcohol Screening: Question Answer Notes Did you have a drink containing alcohol in the past year? Ye s Points 3 Interpretation Positive How often did you have six or more drinks on one occas ion in the past year? Never (0 points) How many drinks did you have on a typica l day when you were drinking in the past year? 1 or 2 (0 points) How often did you have a drink containing alcohol in t he past year? Two to three times per week (3 points) BMI Care Goal Follow-Up Question Answer Notes Above Normal BMI Follow-Up Dietary management educatio n, guidance, and counseling -38.5 Tobacco Use: Question Answer Notes Are you a: former smoker former smoker quit o sugey 40 nyears ago How long has it been since you last smoked? updsated 07/04/2020 REASON FOR REFERRAL No Information VITAL SIGNS Weight 206 lbs Dec, Height 5'5 1/2" in Dec, BMI 33.76 kg/m2 Dec, Heart Rate 86 /min Dec, Respiratory Rate 18 /min Dec, Temperature 97.0 degrees Fahrenheit Dec, Oximetry 97%RA Dec, Blood pressure systolic 134 mm Hg Dec, Blood pressure diastolic 87 mm Hg Dec, MEDICATIONS Medication SIG (Take, Route, Frequency, Duration) Notes Start Da te End Date Status Vision Clear _ _ Vision (Both) 20/25, Vis ion (L) 20/25, Vision (R) 20/30, Vision (without glasses) Uncorrected May, Ac tive Xarelto 20 mg TAKE 1 TABLET DAILY WITH THE EVENING MEAL for 90 Active Cholecalciferol 50 MCG (1999 UT) 1 tablet Orally Once a day for 90 day(s) Jun, Active Pantoprazole Sodium 40 mg TAKE 1 TABLET DAILY Active Lopressor 50 mg 1 tab Orally twice daily for 90 Active PROCEDURES No Information RESULTS Component Value Reference Range Basic Metabolic Profile (BMP) Reviewed date:12/19/2020 17:16:24 Interpretation:Abnormal Performing Lab:[facility] LABORAT[facility] [address] [address] , ,[place] [id number] GLUCOSE, FASTING 91 70-100 BLOOD UREA NITROGEN 20 7-18 CREATININE FOR GFR 1.55 0.55-1.30 GLOMERULAR FILTRATION RATE 34.4 >39 SODIUM LEVEL 141 136-145 POTASSIUM SERUM 4.4 3.5-5.1 CHLORIDE LEVEL 110 98-107 CARBON DIOXIDE LEVEL 26 21-32 CALCIUM LEVEL 10.9 8.8-10.2 VITAMIN D 25-HYDROXY Reviewed date:12/19/2020 17:16:24 Interpretation:Abnormal Performing Lab:[facility] LAB[facility] [address] [address] , ,[place] [address] TOTAL 25(OH) VITAMIN D 26.3 30.0-100.0 REASON FOR VISIT Follow-up blood pressure MEDICAL (GENERAL) HISTORY Type Description Date Medical History hypertension Medical History hyperparathyroidism Medical History allergic rhinitis Medical History pulmonary embolism Medical History Afib Medical History osteoarthritis Surgical History Cataract removal Surgical History Shoulder surgery Surgical History D&C Surgical History colonoscopy August 2017 Hospitalization History [place]-fever and chills 03/10-11/05 5 Hospitalization History x 3 days-[place]-[facility] 06/27/16 Goals Section No Information Health Concerns No Information MEDICAL EQUIPMENT No Information MENTAL STATUS No Information FUNCTIONAL STATUS No Information ASSESSMENTS Encounter Date Diagnosis Assessment Notes Treatment Notes Treatm ent Clinical Notes Dec, Hypertensive heart disease without heart failure (ICD-10 - I11.9) Stable, continue current medication. Dec, Hypercalcemia (ICD-10 - E83.52) BMP to monitor calcium level Dec, Vitamin D deficiency (ICD-10 - E55.9) Monitor with vitamin D level PLAN OF TREATMENT Medication Medication Name Sig Start Date Stop Date Lopressor 50 mg 1 tab Orally twice daily for 90 Treatment Notes Assessment Notes Clinical Notes Hypertensive heart disease without heart failure Stable, continue current medication. Hypercalcemia BMP to monitor calci um level Vitamin D deficiency Monitor with vitami n D level Next Appt Details 6 Months: follow up Reason: Provider Name:Lily Carrington, 2021-04 01:00:00 PM, [address], , [place], [address], Insurance Providers Payer Name Payer Address Payer Phone Insured Name Patient Relati onship to Insured Coverage Start Date Coverage End Date R [facility] [address] [id number] [facility] [id number] SHARLENE HERNANDEZ MEDICARE Part A and B [address] [facility] [id number] SHARLENE HERNANDEZ
--- OUTSIDE RECORDS SUMMARY | 2021-02-09 20:54 | CCD ---
Author Author [facility] Organization [facility] Address Unknown Phone Unavailable Care Team Providers Care Drawing Instructor Name Role Phone Dong Jesus MD Unavailable Unavailable Dong Jesus MD Unavailable Unavailable Dong Jesus MD Unavailable Unavailable Dong Jesus MD Unavailable Unavailable Dong Jesus MD Unavailable Unavailable Dong Jesus MD Unavailable Unavailable Dogn Jesus MD Unavailable Unavailable Dong Jesus MD Unavailable Unavailable Dong Jesus MD Unavailable Unavailable Dong Jesus MD Unavailable Unavailable Dong Jesus MD Unavailable Unavailable Dong Jesus MD Unavailable Unavailable Dong Jesus MD Unavailable Unavailable Dong Jesus MD Unavailable Unavailable Dong Jesus MD Unavailable Unavailable Dong Jesus MD Unavailable Unavailable Dong Jesus MD Unavailable Unavailable Dong Jesus MD Unavailable Unavailable Dong Jesus MD Unavailable Unavailable Dong Jesus MD Unavailable Unavailable Dong Jesus MD Unavailable Unavailable Dong Jesus MD Unavailable Unavailable Dong Jesus MD Unavailable Unavailable Dong Jesus MD Unavailable Unavailable Dong Jesus MD Unavailable Unavailable Dong Jesus MD Unavailable Unavailable Dong Jesus MD Unavailable Unavailable Dong Jesus MD Unavailable Unavailable Dong Jesus MD Unavailable Unavailable Dong Jesus MD Unavailable Unavailable Dong Jesus MD Unavailable Unavailable Dong Jesus MD Unavailable Unavailable Dong Jesus MD Unavailable Unavailable Dong Jesus MD Unavailable Unavailable Dong Jesus MD Unavailable Unavailable Dong Jesus MD Unavailable Unavailable Dong Jesus MD Unavailable Unavailable Dong Jesus MD Unavailable Unavailable Dong Jesus MD Unavailable Unavailable Dong Jesus MD Unavailable Unavailable Dong Jesus MD Unavailable Unavailable Dong Jesus MD Unavailable Unavailable Dong Jesus MD Unavailable Unavailable Dong Jesus MD Unavailable Unavailable Dong Jesus MD Unavailable Unavailable Dong Jesus MD Unavailable Unavailable Dong Jesus MD Unavailable Unavailable Dong Jesus MD Unavailable Unavailable Dong Jesus MD Unavailable Unavailable Dong Jesus MD Unavailable Unavailable Thuan Epstein MD Unavailable Unavailable Thuan Epstein MD Unavailable Unavailable Thuan Epstein MD Unavailable Unavailable Thuan Epstein MD Unavailable Unavailable Thuan Epstein MD Unavailable Unavailable Thuan Epstein MD Unavailable Unavailable Thuan Epstein MD Unavailable Unavailable Thuan Epstein MD Unavailable Unavailable Thuan Epstein MD Unavailable Unavailable Thuan Epstein MD Unavailable Unavailable Thuan Epstein MD Unavailable Unavailable Thuan Epstein MD Unavailable Unavailable Thuan Epstein MD Unavailable Unavailable Thuan Epstein MD Unavailable Unavailable Thuan Epstein MD Unavailable Unavailable Thuan Epstein MD Unavailable Unavailable Thuan Epstein MD Unavailable Unavailable Thuan Epstein MD Unavailable Unavailable Thuan Epstein MD Unavailable Unavailable Thuan Epstein MD Unavailable Unavailable Thuan Epstein MD Unavailable Unavailable Thuan Epstein MD Unavailable Unavailable Thuan Epstein MD Unavailable Unavailable Thuan Epstein MD Unavailable Unavailable Thuan Epstein MD Unavailable Unavailable Tuhan Epstein MD Unavailable Unavailable Thuan Epstein MD Unavailable Unavailable Thuan Epstein MD Unavailable Unavailable Thuan Epstein MD Unavailable Unavailable Thuan Epstein MD Unavailable Unavailable Thuan Epstein MD Unavailable Unavailable Thuan Epstein MD Unavailable Unavailable Thuan Epstein MD Unavailable Unavailable Thuan Epstein MD Unavailable Unavailable Thuan Epstein MD Unavailable Unavailable Thuan Epstein MD Unavailable Unavailable Thuan Epstein MD Unavailable Unavailable Thuan Epstein MD Unavailable Unavailable Thuan Epstein MD Unavailable Unavailable Thuan Epstein MD Unavailable Unavailable Thuan Epstein MD Unavailable Unavailable Thuan Epstein MD Unavailable Unavailable Thuan Epstein MD Unavailable Unavailable Thuan Epstein MD Unavailable Unavailable Thuan Epstein MD Unavailable Unavailable Fish, B Faustina MD Unavailable Unavailable Fish, B Faustina MD Unavailable Unavailable Fish, B Faustina MD Unavailable Unavailable Fish, B Faustina MD Unavailable Unavailable Fish, B Faustina MD Unavailable Unavailable Fish, B Faustina MD Unavailable Unavailable Fish, B Faustina MD Unavailable Unavailable Fish, B Faustina MD Unavailable Unavailable Fish, B Faustina MD Unavailable Unavailable Fish, B Faustina MD Unavailable Unavailable Fish, B Faustina MD Unavailable Unavailable Fish, B Faustina MD Unavailable Unavailable Fish, B Faustina MD Unavailable Unavailable Fish, B Faustina MD Unavailable Unavailable Fish, B Faustina MD Unavailable Unavailable Fish, B Faustina MD Unavailable Unavailable Fish, B Faustina MD Unavailable Unavailable Fish, B Faustina MD Unavailable Unavailable Fish, B Faustina MD Unavailable Unavailable Fish, B Faustina MD Unavailable Unavailable Re-disclosure Warning The records that you are about to access may contain information from federally-assisted alcohol or drug abuse programs. If such information is present, then the following federally mandated warning applies: This information has been disclosed to you from records protected by federal confidentiality rules (42 CFR part 2). The federal rules prohibit you from making any further disclosure of this information unless further disclosure is expressly permitted by the written consent of the person to whom it pertains or as otherwise permitted by 42 CFR part 2. A general authorization for the release of medical or other information is NOT sufficient for this purpose. The Federal rules restrict any use of the information to criminally investigate or prosecute any alcohol or drug abuse patient.The records that you are about to access may contain highly sensitive health information, the redisclosure of which is protected by Article 27-F of the [facility] Public Health law. If you continue you may have access to information: Regarding HIV / AIDS; Provided by facilities licensed or operated by the [facility] Office of Mental Health; or Provided by the [facility] Office for People With Developmental Disabilities. If such information is present, then the following [facility] mandated warning applies: This information has been disclosed to you from confidential records which are protected by state law. State law prohibits you from making any further disclosure of this information without the specific written consent of the person to whom it pertains, or as otherwise permitted by law. Any unauthorized further disclosure in violation of state law may result in a fine or mcc sentence or both. A general authorization for the release of medical or other information is NOT sufficient authorization for further disc losure. Family History Family Member Name Family Member Gender Family Member Status Date o f Status Description Data Source(s) Unknown Unknown Problem [facility]ENT ([facility] ) Encounters Encounter Providers Location Date Indications Data Source(s ) Outpatient Attender: Hany Jesus MD Main Office 01/03/2021 02:45:00 PM EDT [facility] ([facility]) [place] [address] [facility] [address] 12/19/2020 12:00:00 AM EDT eCW1 ([facility]) [place] [address] [facility] [facility] [address] 10/31/2020 12:00:00 AM EDT eCW1 ([facility]) Outpatient Attender: Hany Jesus MD Main Office 07/31/2020 01:00:00 PM EDT [facility] ([facility]) Outpatient [address] [facility] [place] [address] 07/04/2020 12:00:00 AM EDT eCW1 ([facility]) [place] [address] [facility] [address] 05/16/2020 12:00:00 AM EST eCW1 ([facility]) Unknown [address] [facility] [place] [address] 04/24/2020 12:00:00 AM EST eCW1 ([facility]) Unknown [address] [facility] [place] [address] 04/19/2020 12:00:00 AM EST eCW1 ([facility]) [place] [address] [facility] [address] 04/04/2020 12:00:00 AM EST eCW1 ([facility]) Unknown [address] [facility] [place] [address] 04/03/2020 12:00:00 AM EST eCW1 ([facility]) Unknown [address] [facility] [place] [address] 04/02/2020 12:00:00 AM EST eCW1 ([facility]) [place] [address] [facility] [place] [address] 03/27/2020 12:00:00 AM EST eCW1 ([facility]) [place] [address] [facility] [address] 03/12/2020 12:00:00 AM EST eCW1 ([facility]) [place] [address] [facility] [address] 03/07/2020 12:00:00 AM EST eCW1 ([facility]) Outpatient Attender: Faustina Epstein MD Physical Therapy 02/19 01:00:00 PM EST [facility] ([facility]) [place] [address] [facility] [address] 02/08/2020 12:00:00 AM EDT eCW1 ([facility]) Immunizations Vaccine Date Status Description Data Source(s) COVID-19 VACCINE Pfizer 01/28/2021 12:00:00 AM EDT completed [facility] Vaccine Series Complete: YESThis Data wa s Submitted to [facility] Via [facility]. COVID-19 VACC, MRNA(PFIZER)/PF 01/28/2021 12:00:00 AM EDT completed [facility] COVID-19 VACCINE Pfizer 06/03/2020 12:00:00 AM EST completed [facility] Vaccine Series Complete: YESThis Data wa s Submitted to [facility] Via [employer]. COVID-19 VACCINE Pfizer 05/15/2020 12:00:00 AM EST completed [facility] Vaccine Series Complete: NOThis Data was Submitted to [facility] Via [employer]. IIV3. This is one of two codes replacing CVX 15, which is being retired. 01/14/2020 01:04:00 PM EDT completed eCW1 ([facility]) IIV3. This is one of two codes replacing CVX 15, which is being retired. 01/14/2020 01:04:00 PM EDT completed eCW1 ([facility]) IIV3. This is one of two codes replacing CVX 15, which is being retired. 01/14/2020 01:04:00 PM EDT completed eCW1 ([facility]) IIV3. This is one of two codes replacing CVX 15, which is being retired. 01/14/2020 01:04:00 PM EDT completed eCW1 ([facility]) IIV3. This is one of two codes replacing CVX 15, which is being retired. 01/14/2020 01:04:00 PM EDT completed eCW1 ([facility]) IIV3. This is one of two codes replacing CVX 15, which is being retired. 01/14/2020 01:04:00 PM EDT completed eCW1 ([facility]) IIV3. This is one of two codes replacing CVX 15, which is being retired. 01/14/2020 01:04:00 PM EDT completed eCW1 ([facility]) IIV3. This is one of two codes replacing CVX 15, which is being retired. 01/14/2020 01:04:00 PM EDT completed eCW1 ([facility]) IIV3. This is one of two codes replacing CVX 15, which is being retired. 01/14/2020 01:04:00 PM EDT completed eCW1 ([facility]) IIV3. This is one of two codes replacing CVX 15, which is being retired. 01/14/2020 01:04:00 PM EDT completed eCW1 ([facility]) IIV3. This is one of two codes replacing CVX 15, which is being retired. 01/14/2020 01:04:00 PM EDT completed eCW1 ([facility]) IIV3. This is one of two codes replacing CVX 15, which is being retired. 01/14/2020 01:04:00 PM EDT completed eCW1 ([facility]) IIV3. This is one of two codes replacing CVX 15, which is being retired. 01/14/2020 01:04:00 PM EDT completed eCW1 ([facility]) INFLUENZA VACCINE QUADRIVALENT 2019-21 (65 YR UP)/MF59 C.1/PF 01/14/2020 12:00:00 AM EDT completed [facility] Medications Medication Brand Name Start Date Product Form Dose Route Admi nistrative Instructions Pharmacy Instructions Status Indications Reaction Description Data Source(s) Bifidobacterium Infantis 4 MG Oral Capsule [Align] Align 01/03/2021 12:00:00 AM EDT ORAL active [facility] ([facility]) 4 mg 08/01/2020 12:00:00 AM EDT capsule 28 TAKE ONE CAPSULE BY MOUTH EVERY MORNING TAKE ONE CAPSULE BY MOUTH EVERY MORNING SOLD: 01/28/2021 [facility] 4 mg 08/01/2020 12:00:00 AM EDT capsule 84 TAKE ONE CAPSULE BY MOUTH EVERY MORNING TAKE ONE CAPSULE BY MOUTH EVERY MORNING SOLD: 08/03/2020 [facility] 4 mg 08/01/2020 12:00:00 AM EDT capsule 84 TAKE ONE CAPSULE BY MOUTH EVERY MORNING TAKE ONE CAPSULE BY MOUTH EVERY MORNING SOLD: 10/29/2020 [facility] Psyllium 14.2 MG/ML Oral Suspension [Metamucil] Metamu cil Smooth Texture Sugar Free 07/31/2020 12:00:00 AM EDT completed [facility] ([facility]) Bifidobacterium Infantis 4 MG Oral Capsule [Align] Align 07/31/2020 12:00:00 AM EDT ORAL completed [facility] ([facility]) Cholecalciferol 50 MCG (1999 UT) K 07/04/2020 12:00:00 AM ED T 1.0 {tablet} active Cholecalciferol 50 M CG (1999 UT) [facility] ([facility]) Cholecalciferol 50 MCG (1999 UT) UNK 07/04/2020 12:00:00 AM ED T 1.0 {tablet} active Cholecalciferol 50 M CG (1999 UT) eC ([facility]) Cholecalciferol 50 MCG (1999 UT) UNK 07/04/2020 12:00:00 AM ED T 1.0 {tablet} active Cholecalciferol 50 M CG (1999 UT) [facility] ([facility]) Insurance Providers Payer name Policy type / Coverage type Policy ID Covered constitution party ID Covered constitution party's relationship to kwan Policy Kwan Plan Information [facility] [place] [id number] MEDICARE A [id number] Self [id number] A [facility] [id number] Self [id number] ANSI-Commercial [id number] ANSI-Medicare Part B [id number] ANSI-Commercial [id number] ANSI-Commercial [id number] ANSI-Medicare Part B [id number] ANSI-Commercial [id number] ANSI-Commercial [id number] ANSI-Medicare Part B [id number] ANSI-Commercial [id number] ANSI-Commercial [id number] ANSI-Medicare Part B [id number] ANSI-Commercial [id number] MEDICARE [id number] SP [id number] A ANSI-Commercial [id number] ANSI-Commercial [id number] ANSI-Medicare Part B [id number] ANSI-Medicare Part B [id number] ANSI-Commercial [id number] ANSI-Commercial [id number] Medicare [place] Medicare Primary [id number] Self [id number] [employer] [id number] SP [id number] MEDICARE - [place] MCR [id number] S [id number] [employer] Medigap Part B [id number] Self [id number] Medicare [facility] Medicare Primary [id number] Self [id number] [facility] B [id number] Self [id number] [place] Medicare Primary [id number] Self [id number] [facility] [id number] Self [id number] [place] Medicare Primary [id number] Self [id number] [facility] [id number] Self [id number] [place] Medicare Primary [id number] Self [id number] MEDICARE [id number] SP [id number] A [facility] [id number] SP [id number] [facility] [id number] SP [id number] Problems, Conditions, and Diagnoses Code Display Name Description Problem Type Effective Dates Data Source(s) 75669075 Irritable bowel syndrome Irritable bowel syndrome Prob parker 01/03/2021 12:00:00 AM EDT [facility] ([facility]) [id number] Screening for malignant neoplasm of colo n Screening for malignant neoplasm of colon Problem 07/31/2020 12:00:00 AM EDT MEDENT ([facility]) E55.9 32638505 Vitamin D deficiency Problem 04/04/2020 12:0 0:00 AM EST eCW1 ([facility]) E83.52 80270382 Hypercalcemia Problem 03/07/2020 12:00:00 AM EST eCW1 ([facility]) [id number] Essential hypertension Essential hypertension Problem 02/17/2020 12:00:00 AM EST MEDENT ([facility]) I11.9 65496244 Hypertensive heart disease without heart failure Problem 02/08/2020 12:00:00 AM EDT eCW1 ([facility]) I48.91 [id number] Atrial fibrillation, unspecified type Pro blem 02/08/2020 12:00:00 AM EDT eCW1 ([facility]) Surgeries/Procedures Procedure Description Date Indications Data Source(s) OFFICE OUTPATIENT VISIT 15 MINUTES 01/03/2021 12:00:00 AM EDT MED[facility] ([facility]) OFFICE OUTPATIENT NEW 30 MINUTES 07/31/2020 12:00:00 A M EDT MED[facility] ([facility]) Results ID Date Data Source VITAMIN D 25-HYDROXY 12/19/2020 12:00:00 AM EDT eCW1 ([facility]) Name Value Range Interpretation Code Description Data Lydia rce(s) Supporting Document(s) 26.3 30.0-100.0 TOTAL 25(OH) VITAMIN D eC W1 ([facility]) ID Date Data Source Basic Metabolic Profile (BMP) 12/19/2020 12:00:00 AM EDT eCW 1 ([facility]) Name Value Range Interpretation Code Description Data Lydia rce(s) Supporting Document(s) 91 70-100 GLUCOSE, FASTING eCW1 ([facility]) 20 7-18 BLOOD UREA NITROGEN eCW1 ([facility]) 141 136-145 SODIUM LEVEL eCW1 (On license of [facility]) 34.4 >39 GLOMERULAR FILTRATION RATE eCW 1 ([facility]) 1.55 0.55-1.30 CREATININE FOR GFR eCW1 ([facility]) 26 21-32 CARBON DIOXIDE LEVEL eCW1 ([facility]) 4.4 3.5-5.1 POTASSIUM SERUM eCW1 ([facility]) 110 98-107 CHLORIDE LEVEL eCW1 ([facility]) 10.9 8.8-10.2 CALCIUM LEVEL eCW1 ([facility]) ID Date Data Source Comprehensive Metabolic Profile (CMP) 07/04/2020 12:00:00 AM EDT eCW1 ([facility]) Name Value Range Interpretation Code Description Data Lydia rce(s) Supporting Document(s) 102 70-100 GLUCOSE, FASTING eCW1 ([facility]) 33.5 >39 GLOMERULAR FILTRATION RATE eCW 1 ([facility]) 142 136-145 SODIUM LEVEL eCW1 (On license of [facility]) 1.59 0.55-1.30 CREATININE FOR GFR eCW1 ([facility]) 20 7-18 BLOOD UREA NITROGEN eCW1 ([facility]) 12.0 8.8-10.2 CALCIUM LEVEL eCW1 ([facility]) 109 98-107 CHLORIDE LEVEL eCW1 ([facility]) 4.5 3.5-5.1 POTASSIUM SERUM eCW1 ([facility]) 25 21-32 CARBON DIOXIDE LEVEL eCW1 ([facility]) 13 7-37 AST/SGOT eCW1 ([facility]) 0.8 0.2-1.0 BILIRUBIN,TOTAL eCW1 ([facility]) 16 12-78 ALT/SGPT eCW1 ([facility]) 109 45-117 ALKALINE PHOSPHATASE eCW1 ([facility]) 1.1 1.2-2.2 ALBUMIN/GLOBULIN RATIO eCW1 ([facility]) 3.7 3.2-5.2 ALBUMIN eCW1 ([facility]) 7.0 6.4-8.2 TOTAL PROTEIN eCW1 ([facility]) ID Date Data Source Ionized Calcium 07/04/2020 12:00:00 AM EDT eCW1 ([facility]) Name Value Range Interpretation Code Description Data Lydia rce(s) Supporting Document(s) 5.6 4.5-5.3 IONIZED CALCIUM eCW1 ([facility]) Procedure Social History Code Duration Value Status Description Data Source(s ) Smoking 12/19/2020 12:00:00 AM EDT Former Smoker completed Former Smoker eCW1 ([facility]) Smoking 07/04/2020 12:00:00 AM EDT Former Smoker completed Former Smoker eCW1 ([facility]) Smoking 07/04/2020 12:00:00 AM EDT Former Smoker completed Former Smoker eCW1 ([facility]) Smoking 02/19/2020 12:00:00 AM EST Patient is a former smoker completed Patient is a former smoker MEDENT ([facility]) Vital Signs ID Date Data Source UNK Name Value Range Interpretation Code Description Data Source(s) Body height 66 [in_i] 66 [in_i] [facility] 5'6" Body weight 204.00 [lb_av] 204.00 [lb_av] MEDEN T ([facility]) Systolic blood pressure 132 mm[Hg] 132 mm[Hg] M EDENT ([facility]) Diastolic blood pressure 84 mm[Hg] 84 mm[Hg] [facility] ([facility]) Heart rate 72 /min 72 /min [facility] ([facility] Body mass index (BMI) [Ratio] 32.9 kg/m2 32.9 k g/m2 MED[facility] ([facility]) Body weight 92.534 kg 92.534 kg [facility] ([facility]) Body temperature 97.0 [degF] 97.0 [degF] MED[facility] ([facility]) Body weight 206 [lb_av] 206 [lb_av] eCW1 ([facility]) Body height [in_i] eCW1 ([facility]) Body mass index (BMI) [Ratio] 33.76 kg/m2 33.76 kg/m2 eCW1 ([facility]) Heart rate 86 /min 86 /min eCW1 ([facility]) Respiratory rate 18 /min 18 /min eCW1 ([facility]) Body temperature 97.0 [degF] 97.0 [degF] eCW1 ( [facility]) Systolic blood pressure 134 mm[Hg] 134 mm[Hg] e CW1 ([facility]) Diastolic blood pressure 87 mm[Hg] 87 mm[Hg] eCW1 ([facility]) Body height 66 [in_i] 66 [in_i] [facility] 5'6" Body weight 202.00 [lb_av] 202.00 [lb_av] MEDEN T ([facility]) Systolic blood pressure 129 mm[Hg] 129 mm[Hg] M EDENT ([facility]) Diastolic blood pressure 82 mm[Hg] 82 mm[Hg] [facility] ([facility]) Heart rate 89 /min 89 /min [facility] ([facility]) Body mass index (BMI) [Ratio] 32.6 kg/m2 32.6 k g/m2 MED[facility] ([facility]) Body weight 91.627 kg 91.627 kg [facility]) Body temperature 97.7 [degF] 97.7 [degF] [facility] ([facility]) Body weight 199.4 [lb_av] 199.4 [lb_av] eCW1 ([facility]) Body height [in_i] eCW1 ([facility]) Body mass index (BMI) [Ratio] 32.67 kg/m2 32.67 kg/m2 eCW1 ([facility]) Heart rate 72 /min 72 /min eCW1 ([facility]) Respiratory rate 18 /min 18 /min eCW1 ([facility]) Body temperature 98 [degF] 98 [degF] eCW1 ([facility]) Systolic blood pressure 120 mm[Hg] 120 mm[Hg] e CW1 ([facility]) Diastolic blood pressure 68 mm[Hg] 68 mm[Hg] eCW1 ([facility]) Body weight 211 [lb_av] 211 [lb_av] eCW1 ([facility]) Body height [in_i] eCW1 ([facility]) Body mass index (BMI) [Ratio] 34.57 kg/m2 34.57 kg/m2 eCW1 ([facility]) Heart rate 65 /min 65 /min eCW1 ([facility]) Respiratory rate 18 /min 18 /min eCW1 ([facility]) Body temperature 96.4 [degF] 96.4 [degF] eCW1 ( [facility]) Systolic blood pressure 110 mm[Hg] 110 mm[Hg] e CW1 ([facility]) Diastolic blood pressure 80 mm[Hg] 80 mm[Hg] eCW1 ([facility]) Body weight 215 [lb_av] 215 [lb_av] eCW1 ([facility]) Body height [in_i] eCW1 ([facility]) Body mass index (BMI) [Ratio] 35.23 kg/m2 35.23 kg/m2 eCW1 ([facility]) Heart rate 84 /min 84 /min eCW1 ([facility]) Respiratory rate 18 /min 18 /min eCW1 ([facility]) Body temperature 97.5 [degF] 97.5 [degF] eCW1 ( [facility]) Systolic blood pressure 120 mm[Hg] 120 mm[Hg] e CW1 ([facility]) Diastolic blood pressure 84 mm[Hg] 84 mm[Hg] eCW1 ([facility]) Systolic blood pressure 144 mm[Hg] 144 mm[Hg] M EDENT ([facility]) Diastolic blood pressure 80 mm[Hg] 80 mm[Hg] MEDENT ([facility]) Heart rate 91 /min 91 /min MEDENT ([facility]) Body temperature 97.3 [degF] 97.3 [degF] MEDENT ([facility]) Body height 64.7 [in_i] 64.7 [in_i] MEDENT ([facility]) 5'4.70" Body weight 219.00 [lb_av] 219.00 [lb_av] MEDEN T ([facility]) Body mass index (BMI) [Ratio] 36.8 kg/m2 36.8 k g/m2 MEDENT ([facility]) Oxygen saturation in Arterial blood by Pulse oximetry 98 % 98 % MEDENT ([facility]) Body weight [lb_av] eCW1 ([facility]) Body height [in_i] eCW1 ([facility]) Body mass index (BMI) [Ratio] 34.74 kg/m2 34.74 kg/m2 eCW1 ([facility]) Heart rate 55 /min 55 /min eCW1 ([facility]) Respiratory rate 18 /min 18 /min eCW1 ([facility]) Body temperature 97.2 [degF] 97.2 [degF] eCW1 ( [facility]) Systolic blood pressure 121 mm[Hg] 121 mm[Hg] e CW1 ([facility]) Diastolic blood pressure 88 mm[Hg] 88 mm[Hg] eCW1 ([facility]) Patient Treatment Plan of Care Planned Activity Planned Date Details Description Data Source (s) Cholecalciferol 50 MCG (1999 [place]) 07/04/2020 12:00:00 AM EDT eCW1 ([facility]) Cholecalciferol 50 MCG (1999 [place]) 07/04/2020 12:00:00 AM EDT eCW1 ([facility])
--- NOTE | 2021-02-09 21:46 | REPVR ---
PROCEDURE INFORMATION: Exam: XR Right Ankle Exam date and time: 02/09/2021 9:26 PM Age: 80 years old Clinical indication: Other: Injury TECHNIQUE: Imaging protocol: XR Right ankle. Views: 3 or more views. COMPARISON: No relevant prior studies available. FINDINGS: Bones/joints: Osteoporosis. Acute spiral fracture distal fibular. Small plantar calcaneal spur. Small retrocalcaneal insertional enthesophyte. Widening of the medial ankle mortise. Soft tissues: Soft tissue edema medial ankle. Other findings: Small ossific or calcific fragments distal to the medial malleolus may represent avulsion injuries. IMPRESSION: 1. Acute spiral fracture distal fibular. 2. Small ossific or calcific fragments distal to the medial malleolus may represent avulsion injuries. 3. Widening of the medial ankle mortise. Electronically signed by: Sincere Cisneros On 02/09/2021 21:46:08 PM
--- OUTSIDE RECORDS SUMMARY | 2021-02-09 21:54 | CCD ---
Author Author [facility] Organization [facility] Address Unknown Phone Unavailable Care Team Providers Care Brick Pitcher Name Role Phone Dong Jesus MD Unavailable [...] B Faustina MD Unavailable Unavailable Fish, B Fautsina MD Unavailable Unavailable Re-disclosure Warning The records [...] is protected by Article 27-F of the [facility] Public Health law. If you continue you may have access to information: Regarding HIV / AIDS; Provided by facilities licensed or operated by the [facility] Office of Mental Health; or Provided by the [facility] Office for People With Developmental Disabilities. If such information is present, then the following [facility] mandated warning applies: This information has been [...] law may result in a fine or nursing home sentence or both. A general authorization for the release of medical or other information is NOT sufficient authorization for further disc losure. Family History Family Member Name Family Member Gender Family Member Status Date o f Status Description Data Source(s) Unknown Unknown Problem MEDENT ([facility] ) Encounters Encounter Providers Location Date Indications Data Source(s ) Outpatient Attender: Hany Jesus MD Main Office 01/03/2021 02:45:00 PM EDT MEDENT ([facility]) [place] [address] [facility] [place] [address] 12/19/2020 12:00:00 AM EDT eCW1 ([facility]) Unknown [address] [facility] [place] [address] 10/31/2020 12:00:00 AM EDT eCW1 ([facility]) Outpatient Attender: Hany Jesus MD Main Office 07/31/2020 01:00:00 PM EDT MEDENT ([facility]) Outpatient [address] [facility] [address] 07/04/2020 12:00:00 AM EDT eCW1 ([facility]) Unknown [address] [facility] [place] [address] 05/16/2020 12:00:00 AM EST eCW1 ([facility]) Unknown [address] [facility] [address] [place] [address] 04/24/2020 12:00:00 AM EST eCW1 ([facility]) [place] [address] [facility] [place] [address] 04/19/2020 12:00:00 AM EST eCW1 ([facility]) Outpatient [address] [facility] [place] [address] 04/04/2020 12:00:00 AM EST eCW1 ([facility]) Unknown [address] [facility] [place] [address] 04/03/2020 12:00:00 AM EST eCW1 ([facility]) Unknown [address] [facility] [place] [address] 04/02/2020 12:00:00 AM EST eCW1 ([facility]) Unknown [address] [facility] [address] 03/27/2020 12:00:00 AM EST eCW1 ([facility]) Unknown [address] [facility] [place] [address] 03/12/2020 12:00:00 AM EST eCW1 ([facility]) Outpatient [address] [facility] [place] [address] 03/07/2020 12:00:00 AM EST eCW1 ([facility]) Outpatient Attender: Faustina Epstein MD Physical Therapy 02/19 01:00:00 PM EST MEDENT ([facility]) Outpatient [address] [facility] [place] [address] 02/08/2020 12:00:00 AM EDT eCW1 ([facility]) Immunizations Vaccine Date Status Description Data Source(s) COVID-19 VACCINE Pfizer 01/28/2021 12:00:00 AM EDT completed [facility] Vaccine Series Complete: YESThis Data wa s Submitted to [facility] [employer]. COVID-19 VACC, MRNA(PFIZER)/PF 01/28/2021 12:00:00 AM EDT completed [facility] COVID-19 VACCINE Pfizer 06/03/2020 12:00:00 AM EST completed [facility] Vaccine Series Complete: YESThis Data wa s Submitted to [facility] Via [employer]. COVID-19 VACCINE Pfizer 05/15/2020 12:00:00 AM EST completed [facility] Vaccine Series Complete: NOThis Data was Submitted to [facility] [employer]. IIV3. This is one of two codes replacing CVX 15, which is being retired. 01/14/2020 01:04:00 PM EDT completed eCW1 ([facility]) IIV3. This is one of two codes replacing CVX 15, which is being retired. 01/14/2020 01:04:00 PM EDT completed eCW1 ([facility]) IIV3. This is one of two codes replacing CVX 15, which is being retired. 01/14/2020 01:04:00 PM EDT completed eCW1 ([facility]) IIV3. This is one of two codes replacing CVX 15, which is being retired. 01/14/2020 01:04:00 PM EDT completed eCW1 ([facility]) IIV3. This is one of two codes replacing CVX 15, which is being retired. 01/14/2020 01:04:00 PM EDT completed eCW1 ([facility]) IIV3. This is one of two codes replacing CVX 15, which is being retired. 01/14/2020 01:04:00 PM EDT completed eCW1 ([facility]) IIV3. This is one of two codes replacing CVX 15, which is being retired. 01/14/2020 01:04:00 PM EDT completed eCW1 ([facility]) IIV3. This is one of two codes replacing CVX 15, which is being retired. 01/14/2020 01:04:00 PM EDT completed eCW1 ([facility]) IIV3. This is one of two codes replacing CVX 15, which is being retired. 01/14/2020 01:04:00 PM EDT completed eCW1 ([facility]) IIV3. This is one of two codes replacing CVX 15, which is being retired. 01/14/2020 01:04:00 PM EDT completed eCW1 ([facility]) IIV3. This is one of two codes replacing CVX 15, which is being retired. 01/14/2020 01:04:00 PM EDT completed eCW1 ([facility]) IIV3. This is one of two codes replacing CVX 15, which is being retired. 01/14/2020 01:04:00 PM EDT completed eCW1 ([facility]) IIV3. This is one of two codes replacing CVX 15, which is being retired. 01/14/2020 01:04:00 PM EDT completed eCW1 ([facility]) INFLUENZA VACCINE QUADRIVALENT (65 YR UP)/MF59 C.1/PF 01/14/2020 12:00:00 AM EDT completed [facility] Medications Medication Brand Name Start Date Product Form Dose Route Admi nistrative Instructions Pharmacy Instructions Status Indications Reaction Description Data Source(s) Bifidobacterium Infantis 4 MG Oral Capsule [Align] Align 01/03/2021 12:00:00 AM EDT ORAL active MEDENT ([facility]) 4 mg 08/01/2020 12:00:00 AM EDT [...] ([facility]) Cholecalciferol 50 MCG (1999 [place]) UNK 07/04/2020 12:00:00 AM ED T 1.0 {tablet} active Cholecalciferol 50 M CG (1999) eCW1 ([facility]) Cholecalciferol 50 MCG (1999 [place]) UNK 07/04/2020 12:00:00 AM ED T 1.0 {tablet} active Cholecalciferol 50 M CG (1999 [place]) eCW1 ([facility]) Cholecalciferol 50 MCG (1999 [place]) UNK 07/04/2020 12:00:00 AM ED T 1.0 {tablet} active Cholecalciferol 50 M CG (1999 [place]) eCW1 ([facility]) Insurance Providers Payer name Policy type / Coverage type Policy ID Covered green party ID Covered green party's relationship to kwan Policy Kwan Plan Information [facility] [id number] MEDICARE A [id number] Self [id number] A [facility] [id number] Self [id number] ANSI-Commercial [id number] ANSI-Medicare Part B [id number] ANSI-Commercial [id number] ANSI-Commercial [id number] ANSI-Medicare Part B [id number] ANSI-Commercial [id number] ANSI-Commercial [id number] ANSI-Medicare Part B [id number] ANSI-Commercial [id number] ANSI-Commercial [id number] ANSI-Medicare Part B [id number] ANSI-Commercial [id number] MEDICARE [id number] A ANSI-Commercial [id number] ANSI-Commercial [id number] ANSI-Medicare Part B [id number] ANSI-Medicare Part B [id number] ANSI-Commercial [id number] ANSI-Commercial [id number] Medicare [facility] Medicare Primary [id number] [facility] [id number] [facility] [id number] [facility]IC[facility] [id number] S [id number] [facility] Medigap Part B [id number] Self [id number] [place] Medicare Primary [id number] Self [id number] [facility] Medigap Part B [id number] Self [id number] [place]/[facility] Medicare Primary [id number] Self [id number] [facility] Medigap Part B [id number] 073.0 Self [id number] Medicare [place] Medicare Primary [id number] Self [id number] [facility] Medigap Part B [id number] Self [id number] Medicare [place] Medicare Primary [id number] Self [id number] MEDICARE [id number] A [facility] [id number] SP [id number] [facility] [id number] SP [id number] Problems, Conditions, and Diagnoses Code Display Name Description Problem Type Effective Dates Data Source(s) 98043938 Irritable bowel syndrome Irritable bowel syndrome Prob parker 01/03/2021 12:00:00 AM EDT MEDENT ([facility]) 903427919 Screening for malignant neoplasm of colo n Screening for malignant neoplasm of colon Problem 07/31/2020 12:00:00 AM EDT MEDENT ([facility]) E55.9 53835056 Vitamin D deficiency Problem 04/04/2020 12:0 0:00 AM EST eCW1 ([facility]) E83.52 49611459 Hypercalcemia Problem 03/07/2020 12:00:00 AM EST eCW1 ([facility]) 57230378 Essential hypertension Essential hypertension Problem 02/17/2020 12:00:00 AM EST MEDENT ([facility]) I11.9 84863637 Hypertensive heart disease without heart failure Problem 02/08/2020 12:00:00 AM EDT eCW1 ([facility]) I48.91 16635733 Atrial fibrillation, unspecified type Pro blem 02/08/2020 12:00:00 AM EDT eCW1 ([facility]) Surgeries/Procedures Procedure Description Date Indications Data Source(s) OFFICE OUTPATIENT VISIT 15 MINUTES 01/03/2021 12:00:00 AM EDT MEDENT ([facility]) OFFICE OUTPATIENT NEW 30 MINUTES 07/31/2020 12:00:00 A M EDT MEDENT ([facility]) Results ID Date Data Source VITAMIN D 25-HYDROXY 12/19/2020 12:00:00 AM EDT eCW1 ([facility]) Name Value Range Interpretation Code Description Data Lydia rce(s) Supporting Document(s) 26.3 30.0-100.0 TOTAL 25(OH) VITAMIN D eC W1 ([facility]) ID Date Data Source Basic Metabolic Profile (BMP) 12/19/2020 12:00:00 AM EDT eCW 1 ([facility]) Name Value Range Interpretation Code Description Data Lydia rce(s) Supporting Document(s) 91 70-100 GLUCOSE, FASTING eCW1 ([facility]) 20 7-18 BLOOD UREA NITROGEN eCW1 ([facility]) 141 136-145 SODIUM LEVEL eCW1 ([facility]) 34.4 >39 GLOMERULAR FILTRATION RATE eCW 1 ([facility]) 1.55 0.55-1.30 CREATININE FOR GFR eCW1 ([facility]) 26 21-32 CARBON DIOXIDE LEVEL eCW1 ([facility]) 4.4 3.5-5.1 POTASSIUM SERUM eCW1 ([facility]) 110 98-107 CHLORIDE LEVEL eCW1 ([facility]) 10.9 8.8-10.2 CALCIUM LEVEL eCW1 ([facility]) ID Date Data Source Comprehensive Metabolic Profile (CMP) 07/04/2020 12:00:00 AM EDT eCW1 ([facility]) Name Value Range Interpretation Code Description Data Lydia rce(s) Supporting Document(s) 102 70-100 GLUCOSE, FASTING eCW1 ([facility]) 33.5 >39 GLOMERULAR FILTRATION RATE eCW 1 ([facility]) 142 136-145 SODIUM LEVEL eCW1 ([facility]) 1.59 0.55-1.30 CREATININE FOR GFR eCW1 ([facility]) 20 7-18 BLOOD UREA NITROGEN eCW1 ([facility]) 12.0 8.8-10.2 CALCIUM LEVEL eCW1 ([facility]) 109 98-107 CHLORIDE LEVEL eCW1 ([facility]) 4.5 3.5-5.1 POTASSIUM SERUM eCW1 ([facility]) 25 21-32 CARBON DIOXIDE LEVEL eCW1 ([facility]) 13 7-37 AST/SGOT eCW1 ([facility]) 0.8 0.2-1.0 BILIRUBIN,TOTAL eCW1 ([facility]) 16 12-78 ALT/SGPT eCW1 ([facility]) 109 45-117 ALKALINE PHOSPHATASE eCW1 ([facility]) 1.1 1.2-2.2 ALBUMIN/GLOBULIN RATIO eCW1 ([facility]) 3.7 3.2-5.2 ALBUMIN eCW1 ([facility]) 7.0 6.4-8.2 TOTAL PROTEIN eCW1 ([facility]) ID Date Data Source Ionized Calcium 07/04/2020 12:00:00 AM EDT eCW1 ([facility]) Name Value Range Interpretation Code Description Data Lydia rce(s) Supporting Document(s) 5.6 4.5-5.3 IONIZED CALCIUM eCW1 ([facility]) Procedure Social History Code Duration Value Status Description Data Source(s ) Smoking 12/19/2020 12:00:00 AM EDT Former Smoker completed Former Smoker eCW1 ([facility]) Smoking 07/04/2020 12:00:00 AM EDT Former Smoker completed Former Smoker eCW1 ([facility]) Smoking 07/04/2020 12:00:00 AM EDT Former Smoker completed Former Smoker eCW1 ([facility]) Smoking 02/19/2020 12:00:00 AM EST Patient is [...] 92.534 kg 92.534 kg [facility] Body temperature 97.0 [degF] 97.0 [degF] MEDENT ([facility]) Body weight 206 [lb_av] 206 [lb_av] eCW1 ([facility]) Body height [in_i] eCW1 ([facility]) Body mass index (BMI) [Ratio] 33.76 kg/m2 33.76 kg/m2 eCW1 ([facility]) Heart rate 86 /min 86 /min eCW1 ([facility]) Respiratory rate 18 /min 18 /min eCW1 ([facility]) Body temperature 97.0 [degF] 97.0 [degF] eCW1 ( [facility]) Systolic blood pressure 134 mm[Hg] 134 mm[Hg] e CW1 ([facility]) Diastolic blood pressure 87 mm[Hg] 87 mm[Hg] eCW1 ([facility]) Body height 66 [in_i] 66 [in_i] MEDENT [...] Body weight 199.4 [lb_av] 199.4 [lb_av] eCW1 ([facility]) Body height [in_i] eCW1 ([facility]) Body mass index (BMI) [Ratio] 32.67 kg/m2 32.67 kg/m2 eCW1 ([facility]) Heart rate 72 /min 72 /min eCW1 ([facility]) Respiratory rate 18 /min 18 /min eCW1 ([facility]) Body temperature 98 [degF] 98 [degF] eCW1 ([facility]) Systolic blood pressure 120 mm[Hg] 120 mm[Hg] e CW1 ([facility]) Diastolic blood pressure 68 mm[Hg] 68 mm[Hg] eCW1 ([facility]) Body weight 211 [lb_av] 211 [lb_av] eCW1 ([facility]) Body height [in_i] eCW1 ([facility]) Body mass index (BMI) [Ratio] 34.57 kg/m2 34.57 kg/m2 eCW1 ([facility]) Heart rate 65 /min 65 /min eCW1 ([facility]) Respiratory rate 18 /min 18 /min eCW1 ([facility]) Body temperature 96.4 [degF] 96.4 [degF] eCW1 ( [facility]) Systolic blood pressure 110 mm[Hg] 110 mm[Hg] e CW1 ([facility]) Diastolic blood pressure 80 mm[Hg] 80 mm[Hg] eCW1 ([facility]) Body height [in_i] eCW1 ([facility]) Body weight 215 [lb_av] 215 [lb_av] eCW1 ([facility]) Body mass index (BMI) [Ratio] 35.23 kg/m2 35.23 kg/m2 eCW1 ([facility]) Heart rate 84 /min 84 /min eCW1 ([facility]) Respiratory rate 18 /min 18 /min eCW1 ([facility]) Body temperature 97.5 [degF] 97.5 [degF] eCW1 ( [facility]) Systolic blood pressure 120 mm[Hg] 120 mm[Hg] e CW1 ([facility]) Diastolic blood pressure 84 mm[Hg] 84 mm[Hg] eCW1 ([facility]) Heart rate 91 /min 91 /min MEDENT ([facility]) Systolic blood pressure 144 mm[Hg] 144 mm[Hg] M EDENT ([facility]) Diastolic blood pressure 80 mm[Hg] 80 mm[Hg] MEDENT ([facility]) Body temperature 97.3 [degF] 97.3 [degF] MEDENT ([facility]) Body height 64.7 [in_i] 64.7 [in_i] MEDENT ([facility]) 5'4.70" Body weight 219.00 [lb_av] 219.00 [lb_av] MEDEN T ([facility]) Body mass index (BMI) [Ratio] 36.8 kg/m2 36.8 k g/m2 MEDENT ([facility]) Oxygen saturation in Arterial blood by Pulse oximetry 98 % 98 % MEDENT ([facility]) Body weight [lb_av] eCW1 ([facility]) Body height [in_i] eCW1 ([facility]) Body mass index (BMI) [Ratio] 34.74 kg/m2 34.74 kg/m2 eCW1 ([facility]) Heart rate 55 /min 55 /min eCW1 ([facility]) Respiratory rate 18 /min 18 /min eCW1 ([facility]) Body temperature 97.2 [degF] 97.2 [degF] eCW1 ( [facility]) Systolic blood pressure 121 mm[Hg] 121 mm[Hg] e CW1 ([facility]) Diastolic blood pressure 88 mm[Hg] 88 mm[Hg] eCW1 ([facility]) Patient Treatment Plan of Care Planned Activity Planned Date Details Description Data Source (s) Cholecalciferol 50 MCG (1999) 07/04/2020 12:00:00 AM EDT eCW1 ([facility]) Cholecalciferol 50 MCG (1999) 07/04/2020 12:00:00 AM EDT eCW1 ([facility])
--- NOTE | 2021-02-09 22:54 | REPVR ---
PROCEDURE INFORMATION: Exam: CT Head Without Contrast Exam date and time: 02/09/2021 10:22 PM Age: 80 years old Clinical indication: Other: Fall on xarelto TECHNIQUE: Imaging protocol: Computed tomography of the head without contrast. Radiation optimization: All CT scans at this facility use at least one of these dose optimization techniques: automated exposure control; mA and/or kV adjustment per patient size (includes targeted exams where dose is matched to clinical indication); or iterative reconstruction. COMPARISON: No relevant prior studies available. FINDINGS: Brain: Decreased attenuation of the supratentorial white matter is likely secondary to chronic microvascular ischemia. No acute intracranial hemorrhage. Cerebral ventricles: Ventricular and subarachnoid spaces are age appropriate. Paranasal sinuses: Small volume of nonspecific left maxillary sinus fluid. Mastoid air cells: Visualized mastoid air cells are well aerated. Vasculature: Intracranial vascular calcification. Bones/joints: Unremarkable. No acute fracture. Soft tissues: Unremarkable. IMPRESSION: No acute intracranial abnormality. Electronically signed by: Rafa Hou On 02/09/2021 22:53:52 PM
--- NOTE | 2021-02-09 23:08 | REPVR ---
PROCEDURE INFORMATION: Exam: XR Right Tibia and Fibula Exam date and time: 02/09/2021 10:55 PM Age: 80 years old Clinical indication: Other: Injury to ankle; Additional info: Fall TECHNIQUE: Imaging protocol: XR Right tibia and fibula. Views: 2 views. COMPARISON: CR Ankle, complete RIGHT 02/09/2021 9:20 PM FINDINGS: Bones/joints: Osteopenia. There are degenerative changes. Mild displaced oblique fracture of the distal fibula. Soft tissues: Normal. Vasculature: Vascular calcification. IMPRESSION: Mildly displaced oblique fracture involving the distal aspect of the fibula. Electronically signed by: Rafa Hou On 02/09/2021 23:07:17 PM
--- NOTE | 2021-02-09 23:09 | REPVR ---
PROCEDURE INFORMATION: Exam: XR Right Foot Exam date and time: 02/09/2021 10:55 PM Age: 80 years old Clinical indication: Other: Injury to ankle; Additional info: Fall TECHNIQUE: Imaging protocol: XR Right foot. Views: 3 or more views. COMPARISON: CR Tibia, Fibula lower leg RIGHT 02/09/2021 10:19 PM FINDINGS: Bones/joints: Distal fibular fracture is better demonstrated on dedicated examination. Osteopenia. There are degenerative changes. Bones of the foot appear intact. Soft tissues: Normal. IMPRESSION: 1. Bones of the foot appear intact. 2. Please refer to report for x-ray of the ankle for additional details. Electronically signed by: Rafa Hou On 02/09/2021 23:09:17 PM
--- NOTE | 2021-02-10 00:49 | REPVR ---
PROCEDURE INFORMATION: Exam: XR Chest Exam date and time: 02/09/2021 12:44 AM Age: 80 years old Clinical indication: Other: Fall TECHNIQUE: Imaging protocol: XR of the chest. Views: 1 view. COMPARISON: No relevant prior studies available. FINDINGS: Lungs: Mild bibasilar atelectasis. Pleural spaces: Unremarkable. No pleural effusion. No pneumothorax. Heart/Mediastinum: Cardiomegaly. Vasculature: Elongation of the thoracic aorta. Bones/joints: Postoperative change involving the left shoulder. Organs: 2.8 cm hyperdensity at the left upper quadrant, possible splenic calcification. IMPRESSION: No acute process. Electronically signed by: Rafa Hou On 02/10/2021 00:49:17 AM
[2021-02-10] MEDS ORDERED: MORPHINE 2 MG/ML 1ML VIAL (J2270) IV PRN ×2 (00:55→05:10)
[2021-02-10] MEDS ORDERED: KETOROLAC 30 MG/ML 1ML VIAL IV PRN (00:55)
--- NOTE | 2021-02-10 00:57 | HPEPDOC ---
[facility] Medical History & Physical Date of Admission Feb 10, 2021 Date of Service: Feb 10, 2021 Attending Physician: KEERTHI CASTELLANOS MD History and Physical CHIEF COMPLAINT: [80 y/o female presents after a fall] HISTORY OF PRESENT ILLNESS: [This is a 80 y/o female with a pmh of a-fib on x arelto, dvt, pe, colon ca s/p hemicolectomy, chf, htn and gerd who presents to our ED for evaluation after suffering a fall. Patient states that she normally ambulates with a cane at her baseline. Patient states that today she was trying to get around her home without it and misjudged how far away an object to lean on was and happened to fall. Patient states that she was not dizzy prior to falling and was experiencing no chest pain or palpitations. Patient did not strike her head. After falling, patient began to experience severe pain in her right ankle. Patient tells me that as of now, her only complaint is of right ankle pain and being hungry. Patient denies any fevers, chills, headaches, abd pain, n/v/d/c, syncope, paresthesias, paralysis. Patient found to have right ankle fx in the ED on imaging.] PAST MEDICAL HISTORY: 1. [See HPI PAST SURGICAL HISTORY: 1. [Hemicolectomy]. 2. [C section x2]. 3. [Unspec. L shoulder repair]. SOCIAL HISTORY: Tobacco use:[Former] ETOH: [Occasional] Illicit drug use: [Denies] FAMILY HISTORY: Reviewed - none pertinent ALLERGIES: Please see below. REVIEW OF SYSTEMS: CONSTITUTIONAL: [Denies fevers, chills]. HEENT: [Denies uri sx]. CARDIOVASCULAR: [Denies chest pain, palpitations]. RESPIRATORY: [Denies sob, wheezing]. GASTROINTESTINAL: [Denies abd pain, n/v/d/c]. GENITOURINARY: [Denies dysuria]. SKIN: [Denies rash]. MUSCULOSKELETAL: [See HPI]. NEUROLOGICAL: [Denies syncope, paresthesias]. ENDOCRINE: [Denies hx of dm]. HEMATOLOGIC/LYMPHATIC: [Hx of pe, dvt]. HOME MEDICATIONS: Please see below. PHYSICAL EXAMINATION: VITAL SIGNS: Please see below. GENERAL APPEARANCE: [This is a HARD OF HEARING 80 y/o female who is resting in ED stretcher. She is alert and oriented to questioning and in no acute distress]. HEENT: [No mass or lesion. EOMI. No scleral icterus. Nares patent. Oral mucosa moist]. CARDIOVASCULAR: [Tachy rate, irregularly irregular rhythm. No murmurs, rubs, gallops]. LUNGS: [Good air flow b/l. No wheezing, rales, rhonchi]. ABDOMEN: [Soft, nontender]. MUSCULOSKELETAL: [No joint deformity noted]. EXTREMITIES: [Mild pedal edema appreciated b/l. No overlying skin changes. Pulses intact]. NEUROLOGICAL: [Speech clear. Sensation intact. A+Ox3. No focal deficits]. PSYCHIATRIC: [Mood and affect appropriate]. LABORATORY DATA: See below. IMAGING: [Ankle XR: FINDINGS: Bones/joints: Osteoporosis. Acute spiral fracture distal fibular. Small plantar calcaneal spur. Small retrocalcaneal insertional enthesophyte. Widening of the medial ankle mortise. Soft tissues: Soft tissue edema medial ankle. Other findings: Small ossific or calcific fragments distal to the medial malleolus may represent avulsion injuries. IMPRESSION: 1. Acute spiral fracture distal fibular. 2. Small ossific or calcific fragments distal to the medial malleolus may represent avulsion injuries. 3. Widening of the medial ankle mortise. Head CT: FINDINGS: Brain: Decreased attenuation of the supratentorial white matter is likely secondary to chronic microvascular ischemia. No acute intracranial hemorrhage. Cerebral ventricles: Ventricular and subarachnoid spaces are age appropriate. Paranasal sinuses: Small volume of nonspecific left maxillary sinus fluid. Mastoid air cells: Visualized mastoid air cells are well aerated. Vasculature: Intracranial vascular calcification. Bones/joints: Unremarkable. No acute fracture. Soft tissues: Unremarkable. IMPRESSION: No acute intracranial abnormality. Foot XR: FINDINGS: Bones/joints: Distal fibular fracture is better demonstrated on dedicated examination. Osteopenia. There are degenerative changes. Bones of the foot appear intact. Soft tissues: Normal. IMPRESSION: 1. Bones of the foot appear intact. 2. Please refer to report for x-ray of the ankle for additional details. Tib/Fib XR: FINDINGS: Bones/joints: Osteopenia. There are degenerative changes. Mild displaced oblique fracture of the distal fibula. Soft tissues: Normal. Vasculature: Vascular calcification. IMPRESSION: Mildly displaced oblique fracture involving the distal aspect of the fibula. Extremity CT: FINDINGS: Bones/joints: Mild displaced oblique fracture involving the distal aspect of the fibula. There is mildly displaced fracture involving the anterior/lateral distal tibia adjacent to the fibula. Avulsion fracture involving the inferior tip of the medial malleolus. There is medial ankle mortise widening. Talus and calcaneus appear intact. Soft tissues: There is distal soft tissue injury/soft tissue infiltration. IMPRESSION: 1. Mildly displaced oblique fracture involving the distal aspect of the fibula. 2. Mildly displaced intra-articular fracture involving the anterior/lateral distal tibia adjacent to the fibula. 3. Avulsion fracture at the inferior tip of the medial malleolus. 4. Medial ankle mortise widening. Ankle XR 2: FINDINGS: Bones/joints: Mildly displaced oblique fracture of the distal fibula. Avulsion fracture at the tip of the medial malleolus. Medial ankle mortise widening measures up to 8 mm. Soft tissues: Ankle soft tissue swelling. IMPRESSION: 1. Medial ankle mortise widening increases to 8 mm with stress. 2. Mildly displaced oblique fracture of the distal fibula. 3. Avulsion fracture of the tip of the medial malleolus. CXR: FINDINGS: Lungs: Mild bibasilar atelectasis. Pleural spaces: Unremarkable. No pleural effusion. No pneumothorax. Heart/Mediastinum: Cardiomegaly. Vasculature: Elongation of the thoracic aorta. Bones/joints: Postoperative change involving the left shoulder. Organs: 2.8 cm hyperdensity at the left upper quadrant, possible splenic calcification. IMPRESSION: No acute process. ] MICROBIOLOGY: Please see below. ASSESSMENT: [his is a 80 y/o female with a pmh of a-fib on xarelto, dvt, pe, colon ca s/p hemicolectomy, chf, htn and gerd who presents to our ED for evaluation after suffering a mechanical fall. Patient found to have right ankle fx in the ED on imaging]. . PLAN: 1. [Left Ankle Fracture - ED provider consulted Dr. Harris, orthopedics, who will evaluate pt in the am. Assistance and recommendations greatly appreciated - Will keep patient NPO for now - Posterior splint placed by ED provider - According to the Revised Cardiac Risk Index, patient is a Class II risk of surgery, giving her a 6% risk of cardiac event within 30 days after surgery. Because her pro-BNP was greater than 3000 and she has a history of severe pulmonary hypertension, we need to order an Echo to determine the severity of the pulmonary HTN and relay this information to the Anesthesiologist, prior to proceeding with surgery. We will also need to check troponins daily to screen for MINS (myocardia injury after non-cardiac surgery). - Of note, patient is on xarelto with last dose being yesterday. Current INR 1.96. If the surgeon wishes to proceed with surgery tomorrow he may consider ordering FFPs or Kcentra, otherwise the patient should wait for 48 hours after the last dose of Xarelto prior to proceeding with surgery. - Will give ivf overnight - Toradol/morphine for pain - Admit to med surg for tx 2. A-fib with rvr - RVR likely secondary to pain and missing afternoon dose of metoprolol - Will give daily meds and control pain and monitor - continue metoprolol - holding xarelto for surgical intervention - telemetry for now 3. Chronic HFpEF / Severe Pulmonary HTN - the last Echo done in 2011 reported that the peak systolic pressure was greater than 75 - patient does not appear to be significantly fluid overloaded despite bnp >3000 - cxr clear - f/u repeat Echo prior to surgery 4. GERD - continue protonix 5. CKD - cr at baseline DVT prophylaxis - mechanical pre op]. Vital Signs Vital Signs Date Time Temp Pulse Resp B/P (MAP) Pulse Ox O2 Delivery O2 Flow Rate FiO2 02/09/21 23:08 98.5 82 14 157/91 (113) 98 Room Air Home Medications Scheduled Bifidobacterium Infantis (Align) 4 Mg Capsule, 1 CAP PO DAILY Metoprolol Tartrate (Metoprolol Tartrate) 50 Mg Tab, 50 MG PO BID Pantoprazole Sodium (Pantoprazole Sodium) 40 Mg Tab, 40 MG PO DAILY Rivaroxaban (Xarelto) 10 Mg Tab, 20 MG PO DAILY Miscellaneous Medications [Med Rec Comment] UNABLE TO VERIFY WITH PT. USED EXTERNAL MED HISTORY Allergies Coded Allergies: ENVIRONMENTAL (Unverified Allergy, Mild, 10/06/16) SEAFOOD (Verified Adverse Reaction, Mild, NAUSEA/VOMITING, 08/18/16) A-FIB/CHADSVASC A-FIB History Current/History of A-Fib/PAF?: Yes Current PO Anticoag Therapy: Yes MIKEL MURRAY Feb 10, 2021 00:57 KEERTHI CASTELLANOS MD Feb 10, 2021 05:15
--- NOTE | 2021-02-10 00:59 | REPVR ---
PROCEDURE INFORMATION: Exam: CT Right Lower Extremity Without Contrast, Ankle Exam date and time: 02/09/2021 12:43 AM Age: 80 years old Clinical indication: Injury or trauma; Fall; Blunt trauma; Ankle; Right; Additional info: W 3 d recon per ortho TECHNIQUE: Imaging protocol: CT of the Right lower extremity without contrast was performed. Exam focused on the ankle. Radiation optimization: All CT scans at this facility use at least one of these dose optimization techniques: automated exposure control; mA and/or kV adjustment per patient size (includes targeted exams where dose is matched to clinical indication); or iterative reconstruction. COMPARISON: CR Ankle, complete RIGHT 02/10/2021 12:06 AM FINDINGS: Bones/joints: Mild displaced oblique fracture involving the distal aspect of the fibula. There is mildly displaced fracture involving the anterior/lateral distal tibia adjacent to the fibula. Avulsion fracture involving the inferior tip of the medial malleolus. There is medial ankle mortise widening. Talus and calcaneus appear intact. Soft tissues: There is distal soft tissue injury/soft tissue infiltration. IMPRESSION: 1. Mildly displaced oblique fracture involving the distal aspect of the fibula. 2. Mildly displaced intra-articular fracture involving the anterior/lateral distal tibia adjacent to the fibula. 3. Avulsion fracture at the inferior tip of the medial malleolus. 4. Medial ankle mortise widening. Electronically signed by: Rafa Hou On 02/10/2021 00:59:21 AM
--- NOTE | 2021-02-10 01:02 | REPVR ---
PROCEDURE INFORMATION: Exam: XR Right Ankle Exam date and time: 02/09/2021 12:44 AM Age: 80 years old Clinical indication: Other: Fall; Additional info: [place] medial stress TECHNIQUE: Imaging protocol: XR Right ankle. Views: 3 or more views. COMPARISON: CR Ankle, complete RIGHT 02/09/2021 9:20 PM FINDINGS: Bones/joints: Mildly displaced oblique fracture of the distal fibula. Avulsion fracture at the tip of the medial malleolus. Medial ankle mortise widening measures up to 8 mm. Soft tissues: Ankle soft tissue swelling. IMPRESSION: 1. Medial ankle mortise widening increases to 8 mm with stress. 2. Mildly displaced oblique fracture of the distal fibula. 3. Avulsion fracture of the tip of the medial malleolus. Electronically signed by: Rafa Hou On 02/10/2021 01:01:52 AM
--- OUTSIDE RECORDS SUMMARY | 2021-02-10 01:14 | CCD ---
Author Author [facility] Organization [facility] Address Unknown Phone Unavailable Care Team Providers Care Streetcar Dispatcher Name Role Phone Dong Jesus MD Unavailable [...] is protected by Article 27-F of the [facility] Public Health law. If you continue you may have access to information: Regarding HIV / AIDS; Provided by facilities licensed or operated by the [facility] Office of Mental Health; or Provided by the [facility] Office for People With Developmental Disabilities. If such information is present, then the following [facility] mandated warning applies: This information has [...] Description Data Source(s) Unknown Unknown Problem MEDENT ([facility], ) Encounters Encounter Providers Location Date Indications Data Source(s ) Outpatient Attender: Hany Jesus MD Main Office 01/03/2021 02:45:00 PM EDT [facility] ([facility]) [place] [address] [facility] [facility] [address] 12/19/2020 12:00:00 AM EDT eCW1 ([facility]) [place] [address] [place] [address] 10/31/2020 12:00:00 AM EDT eCW1 ([facility]) Outpatient Attender: Hany Jesus MD Main Office 07/31/2020 01:00:00 PM EDT MEDENT ([facility]) [place] [address] [facility] [address] 07/04/2020 12:00:00 AM EDT eCW1 ([facility]) [place] [address] [facility] [address] 05/16/2020 12:00:00 AM EST eCW1 ([facility]) [place] [address] [facility] [address] 04/24/2020 12:00:00 AM EST eCW1 ([facility]) [place] [address] [facility] [address] 04/19/2020 12:00:00 AM EST eCW1 ([facility]) [place]patient [address] [place] [address] 04/04/2020 12:00:00 AM EST eCW1 ([facility]) [place] [address] [facility] [address] 04/03/2020 12:00:00 AM EST eCW1 ([facility]) [place] [address] [place] [address] 04/02/2020 12:00:00 AM EST eCW1 ([facility]) [place] [address] [facility] [address] 03/27/2020 12:00:00 AM EST eCW1 ([facility]) [place] [address] [facility] [address] 03/12/2020 12:00:00 AM EST eCW1 ([facility]) [place] [address] [facility] [address] 03/07/2020 12:00:00 AM EST eCW1 ([facility]) Outpatient Attender: Faustina Epstein MD Physical Therapy 02/19 01:00:00 PM EST MEDENT ([facility]) [place] [address] [facility] [address] 02/08/2020 12:00:00 AM EDT eCW1 ([facility]) Immunizations Vaccine Date Status Description Data Source(s) COVID-19 VACCINE Pfizer 01/28/2021 12:00:00 AM EDT completed [facility] Vaccine Series Complete: YESThis Data wa s Submitted to [facility] [employer]. COVID-19 VACC, MRNA(PFIZER)/PF 01/28/2021 12:00:00 AM EDT completed [facility] COVID-19 VACCINE Pfizer 06/03/2020 12:00:00 AM EST completed [facility] Vaccine Series Complete: YESThis Data wa s Submitted to [facility] [employer]. COVID-19 VACCINE Pfizer 05/15/2020 12:00:00 AM EST completed [facility] Vaccine Series Complete: NOThis Data was Submitted to [facility] [employer]. IIV3. This is one of two codes replacing CVX 15, which is being retired. 01/14/2020 01:04:00 PM EDT completed eCW1 ([facility]) IIV3. This is one of two codes replacing CVX 15, which is being retired. 01/14/2020 01:04:00 PM EDT completed eCW1 ([facility]) IIV3. This is one of two codes replacing CVX 15, which is being retired. 01/14/2020 01:04:00 PM EDT completed eCW1 ([facility]) IIV3. This is one of two codes replacing CVX 15, which is being retired. 01/14/2020 01:04:00 PM EDT completed eCW1 ([facility]) IIV3. This is one of two codes replacing CVX 15, which is being retired. 01/14/2020 01:04:00 PM EDT completed eCW1 ([facility]) IIV3. This is one of two codes replacing CVX 15, which is being retired. 01/14/2020 01:04:00 PM EDT completed eCW1 ([facility]) IIV3. This is one of two codes replacing CVX 15, which is being retired. 01/14/2020 01:04:00 PM EDT completed eCW1 ([facility]) IIV3. This is one of two codes replacing CVX 15, which is being retired. 01/14/2020 01:04:00 PM EDT completed eCW1 ([facility]) IIV3. This is one of two codes replacing CVX 15, which is being retired. 01/14/2020 01:04:00 PM EDT completed eCW1 ([facility]) IIV3. This is one of two codes replacing CVX 15, which is being retired. 01/14/2020 01:04:00 PM EDT completed eCW1 ([facility]) IIV3. This is one of two codes replacing CVX 15, which is being retired. 01/14/2020 01:04:00 PM EDT completed eCW1 ([facility]) IIV3. This is one of two codes replacing CVX 15, which is being retired. 01/14/2020 01:04:00 PM EDT completed eCW1 ([facility]) IIV3. This is one of two codes replacing CVX 15, which is being retired. 01/14/2020 01:04:00 PM EDT completed eCW1 ([facility]) INFLUENZA VACCINE QUADRIVALENT 2020-21 (65 YR UP)/MF59 C.1/PF 01/14/2020 12:00:00 AM EDT completed [facility] Medications Medication Brand Name Start Date Product Form Dose Route Admi nistrative Instructions Pharmacy Instructions Status Indications Reaction Description Data Source(s) Bifidobacterium Infantis 4 MG Oral Capsule [Align] Align 01/03/2021 12:00:00 AM EDT ORAL active MEDENT ([facility]) 4 mg 08/01/2020 12:00:00 AM EDT capsule [...] CAPSULE BY MOUTH EVERY MORNING SOLD: 10/29/2020 [facility] Psyllium 14.2 MG/ML Oral Suspension [Metamucil] Metamu cil Smooth Texture Sugar Free 07/31/2020 12:00:00 AM EDT completed MEDENT ([facility]) Bifidobacterium Infantis 4 MG Oral Capsule [Align] Align 07/31/2020 12:00:00 AM EDT ORAL completed MEDENT ([facility]) Cholecalciferol 50 MCG (1999 [place]) UNK 07/04/2020 12:00:00 AM ED T 1.0 {tablet} active Cholecalciferol 50 M CG (1999 [place]) eCW1 ([facility]) Cholecalciferol 50 MCG (1999 [place]) UNK 07/04/2020 12:00:00 AM ED T 1.0 {tablet} active Cholecalciferol 50 M CG (1999 [place]) eCW1 ([facility]) Cholecalciferol 50 MCG (1999 [place]) UNK 07/04/2020 12:00:00 AM ED T 1.0 {tablet} active Cholecalciferol 50 M CG (1999 [place]) eCW1 ([facility]) Insurance Providers Payer name Policy type / Coverage type Policy ID Covered green party ID Covered green party's relationship to kwan Policy Kwan Plan Information [facility] [id number] MEDICARE A [id number] Self [id number] [facility] [id number] Self [id number] ANSI-Commercial [id number] ANSI-Medicare Part B [id number] ANSI-Commercial [id number] ANSI-Commercial [id number] ANSI-Medicare Part B [id number] ANSI-Commercial [id number] ANSI-Commercial [id number] ANSI-Medicare Part B [id number] ANSI-Commercial [id number] ANSI-Commercial [id number] ANSI-Medicare Part B [id number] ANSI-Commercial [id number] MEDICARE [id number] A ANSI-Commercial [id number] ANSI-Commercial [id number] ANSI-Medicare Part B [id number] ANSI-Medicare Part B [id number] ANSI-Commercial [id number] ANSI-Commercial [id number] Medicare [facility] Medicare Primary [id number] [facility] [id number] [facility] [id number] SP [id number] MEDICARE - [facility] [id number] S [id number] [facility] Medigap Part B [id number] Self [id number] [place] Medicare Primary [id number] Self [id number] [facility] Medigap Part B [id number] 073.0 Self [id number] [place] Medicare Primary [id number] Self [id number] [facility] Medigap Part B [id number] 073.0 Self [id number] [place] Medicare Primary [id number] Self [id number] [facility] Medigap Part B [id number] Self [id number] [place] Primary [id number] Self [id number] MEDICARE [id number] A [facility] [id number] SP [id number] [facility] [id number] SP [id number] Problems, Conditions, and Diagnoses Code Display Name Description Problem Type Effective Dates Data Source(s) 36557064 Irritable bowel syndrome Irritable bowel syndrome Prob parker 01/03/2021 12:00:00 AM EDT MEDENT ([facility]) 120937525 Screening for malignant neoplasm of colo n Screening for malignant neoplasm of colon Problem 07/31/2020 12:00:00 AM EDT [facility] ([facility]) E55.9 32221162 Vitamin D deficiency Problem 04/04/2020 12:0 0:00 AM EST eCW1 ([facility]) E83.52 66540380 Hypercalcemia Problem 03/07/2020 12:00:00 AM EST eCW1 ([facility]) 03905058 Essential hypertension Essential hypertension Problem 02/17/2020 12:00:00 AM EST MEDENT ([facility]) I11.9 80970820 Hypertensive heart disease without heart failure Problem 02/08/2020 12:00:00 AM EDT eCW1 ([facility]) I48.91 [id number] Atrial fibrillation, unspecified type Pro blem 02/08/2020 12:00:00 AM EDT eCW1 ([facility]) Surgeries/Procedures Procedure Description Date Indications Data Source(s) OFFICE OUTPATIENT VISIT 15 MINUTES 01/03/2021 12:00:00 AM EDT MEDENT ([facility]) OFFICE OUTPATIENT NEW 30 MINUTES 07/31/2020 12:00:00 A M EDT MEDENT ([facility]) Results ID Date Data Source VITAMIN D 25-HYDROXY 12/19/2020 12:00:00 AM EDT eCW1 ([facility]) Name Value Range Interpretation Code Description Data Lydia rce(s) Supporting Document(s) 26.3 30.0-100.0 TOTAL 25(OH) VITAMIN D eC W1 ([facility]) ID Date Data Source Basic Metabolic Profile (BMP) 12/19/2020 12:00:00 AM EDT eCW 1 ([facility]) Name Value Range Interpretation Code Description Data Lydia rce(s) Supporting Document(s) 91 70-100 GLUCOSE, FASTING eCW1 ([facility]) 20 7-18 BLOOD UREA NITROGEN eCW1 ([facility]) 141 136-145 SODIUM LEVEL eCW1 ([facility]) 34.4 >39 GLOMERULAR FILTRATION RATE eCW 1 ([facility]) 1.55 0.55-1.30 CREATININE FOR GFR eCW1 ([facility]) 26 21-32 CARBON DIOXIDE LEVEL eCW1 ([facility]) 4.4 3.5-5.1 POTASSIUM SERUM eCW1 ([facility]) 110 98-107 CHLORIDE LEVEL eCW1 ([facility]) 10.9 8.8-10.2 CALCIUM LEVEL eCW1 ([facility]) ID Date Data Source Comprehensive Metabolic Profile (CMP) 07/04/2020 12:00:00 AM EDT eCW1 ([facility]) Name Value Range Interpretation Code Description Data Lydia rce(s) Supporting Document(s) 102 70-100 GLUCOSE, FASTING eCW1 ([facility]) 33.5 >39 GLOMERULAR FILTRATION RATE eCW 1 ([facility]) 142 136-145 SODIUM LEVEL eCW1 ([facility]) 1.59 0.55-1.30 CREATININE FOR GFR eCW1 ([facility]) 20 7-18 BLOOD UREA NITROGEN eCW1 ([facility]) 12.0 8.8-10.2 CALCIUM LEVEL eCW1 ([facility]) 109 98-107 CHLORIDE LEVEL eCW1 ([facility]) 4.5 3.5-5.1 POTASSIUM SERUM eCW1 ([facility]) 25 21-32 CARBON DIOXIDE LEVEL eCW1 ([facility]) 13 7-37 AST/SGOT [facility] 0.8 0.2-1.0 BILIRUBIN,TOTAL eCW1 ([facility]) 16 12-78 ALT/SGPT [facility]CW[facility] 109 45-117 ALKALINE PHOSPHATASE eCW1 ([facility]) 1.1 1.2-2.2 ALBUMIN/GLOBULIN RATIO eCW1 ([facility]) 3.7 3.2-5.2 ALBUMIN eCW1 ([facility]) 7.0 6.4-8.2 TOTAL PROTEIN eCW1 ([facility]) ID Date Data Source Ionized Calcium 07/04/2020 12:00:00 AM EDT eCW1 ([facility]) Name Value Range Interpretation Code Description Data Lydia rce(s) Supporting Document(s) 5.6 4.5-5.3 IONIZED CALCIUM eCW1 ([facility]) Procedure Social History Code Duration Value Status Description Data Source(s ) Smoking 12/19/2020 12:00:00 AM EDT Former Smoker completed Former Smoker eCW1 ([facility]) Smoking 07/04/2020 12:00:00 AM EDT Former Smoker completed Former Smoker eCW1 ([facility]) Smoking 07/04/2020 12:00:00 AM EDT Former Smoker completed Former Smoker eCW1 ([facility]) Smoking 02/19/2020 12:00:00 AM EST Patient is a former smoker completed Patient is a former smoker MEDENT ([facility]) Vital Signs ID Date Data Source [...] Body weight 206 [lb_av] 206 [lb_av] eCW1 ([facility]) Body height [in_i] eCW1 ([facility]) Body mass index (BMI) [Ratio] 33.76 kg/m2 33.76 kg/m2 eCW1 ([facility]) Heart rate 86 /min 86 /min eCW1 ([facility]) Respiratory rate 18 /min 18 /min eCW1 ([facility]) Body temperature 97.0 [degF] 97.0 [degF] eCW1 ( [facility]) Systolic blood pressure 134 mm[Hg] 134 mm[Hg] e CW1 ([facility]) Diastolic blood pressure 87 mm[Hg] 87 mm[Hg] eCW1 ([facility]) Body height 66 [in_i] 66 [...] Body weight 199.4 [lb_av] 199.4 [lb_av] eCW1 ([facility]) Body height [in_i] eCW1 ([facility]) Body mass index (BMI) [Ratio] 32.67 kg/m2 32.67 kg/m2 eCW1 ([facility]) Heart rate 72 /min 72 /min eCW1 ([facility]) Respiratory rate 18 /min 18 /min eCW1 ([facility]) Body temperature 98 [degF] 98 [degF] eCW1 ([facility]) Systolic blood pressure 120 mm[Hg] 120 mm[Hg] e CW1 ([facility]) Diastolic blood pressure 68 mm[Hg] 68 mm[Hg] eCW1 ([facility]) Body weight 211 [lb_av] 211 [lb_av] eCW1 ([facility]) Body height [in_i] eCW1 ([facility]) Body mass index (BMI) [Ratio] 34.57 kg/m2 34.57 kg/m2 eCW1 ([facility]) Heart rate 65 /min 65 /min eCW1 ([facility]) Respiratory rate 18 /min 18 /min eCW1 ([facility]) Body temperature 96.4 [degF] 96.4 [degF] eCW1 ( [facility]) Systolic blood pressure 110 mm[Hg] 110 mm[Hg] e CW1 ([facility]) Diastolic blood pressure 80 mm[Hg] 80 mm[Hg] eCW1 ([facility]) Body height [in_i] eCW1 ([facility]) Body mass index (BMI) [Ratio] 35.23 kg/m2 35.23 kg/m2 eCW1 ([facility]) Heart rate 84 /min 84 /min eCW1 ([facility]) Respiratory rate 18 /min 18 /min eCW1 ([facility]) Body temperature 97.5 [degF] 97.5 [degF] eCW1 ( [facility]) Systolic blood pressure 120 mm[Hg] 120 mm[Hg] e CW1 ([facility]) Diastolic blood pressure 84 mm[Hg] 84 mm[Hg] eCW1 ([facility]) Body weight 215 [lb_av] 215 [lb_av] eCW1 ([facility]) Systolic blood pressure 144 mm[Hg] 144 mm[Hg] M EDENT ([facility]) Diastolic blood pressure 80 mm[Hg] 80 mm[Hg] MEDENT ([facility]) Heart rate 91 /min 91 /min MEDENT ([facility]) Body temperature 97.3 [degF] 97.3 [degF] MEDENT ([facility]) Body height 64.7 [in_i] 64.7 [in_i] MEDENT ([facility]) 5'4.70" Body weight 219.00 [lb_av] 219.00 [lb_av] MEDEN T ([facility]) Body mass index (BMI) [Ratio] 36.8 kg/m2 36.8 k g/m2 MEDENT ([facility]) Oxygen saturation in Arterial blood by Pulse oximetry 98 % 98 % MEDENT ([facility]) Body weight [lb_av] eCW1 ([facility]) Body height [in_i] eCW1 ([facility]) Body mass index (BMI) [Ratio] 34.74 kg/m2 34.74 kg/m2 eCW1 ([facility]) Heart rate 55 /min 55 /min eCW1 ([facility]) Respiratory rate 18 /min 18 /min eCW1 ([facility]) Body temperature 97.2 [degF] 97.2 [degF] eCW1 ( [facility]) Systolic blood pressure 121 mm[Hg] 121 mm[Hg] e CW1 ([facility]) Diastolic blood pressure 88 mm[Hg] 88 mm[Hg] eCW1 ([facility]) Patient Treatment Plan of Care Planned Activity Planned Date Details Description Data Source (s) Cholecalciferol 50 MCG (1999) 07/04/2020 12:00:00 AM EDT eCW1 ([facility]) Cholecalciferol 50 MCG (1999 [place]) 07/04/2020 12:00:00 AM EDT eCW1 ([facility])
[2021-02-10] MEDS: D5W/0.9% SODIUM CHLORIDE 1,000 ML IV SCH ×3 (01:29→20:55)
[2021-02-10 01:30] LABS: BASO # 0.1 10^3/uL (0.0-0.2); BASO % 0.7 % (0.0-1.0); EOS # 0.1 10^3/uL (0.0-0.5); EOS % 0.8 % (0.0-3.0); HEMATOCRIT 42.2 % (36.0-47.0); LYMPH # 1.1 10^3/uL (1.5-5.0); LYMPH % 13.2 % (24.0-44.0); MEAN CORPUSCULAR HEMOGLOBIN 31.5 pg (27.0-33.0); MEAN CORPUSCULAR HGB CONC 33.2 g/dl (32.0-36.5); MONO # 0.4 10^3/uL (0.0-0.8); MONO % 5.2 % (2.0-8.0); NEUTROPHILS # 6.7 10^3/uL (1.5-8.5); NEUTROPHILS % 79.5 % (36.0-66.0); PLATELET COUNT, AUTOMATED 274 10^3/uL (150-450); RED BLOOD COUNT 4.44 10^6/uL (4.00-5.40); WHITE BLOOD COUNT 8.4 10^3/uL (4.0-10.0)
[2021-02-10 01:49] LABS: INR 1.96; PROTHROMBIN TIME 22.7 SECONDS (12.7-14.5)
[2021-02-10 01:50] LABS: PARTIAL THROMBOPLASTIN TIME 36.7 SECONDS (25.9-37.0)
[2021-02-10] MEDS ORDERED: ALIG4CAP PO (01:54)
[2021-02-10] MEDS ORDERED: MED REC COMMENT (01:57)
[2021-02-10 01:59] LABS: CK-MB VALUE MASS < 1.0 NG/ML (<3.6); CPK CREATINE PHOSPHOKINASE 63 U/L (26-192); MB/CK RELATIVE INDEX 1.59 (< OR =4); NT-PRO BNP 3131 PG/ML (<450); TROPONIN I < 0.02 NG/ML (< 0.10)
[2021-02-10] MEDS ORDERED: HOME MED LIST COMPLETE! XX SCH (02:00)
[2021-02-10 02:01] LABS: RSV AMPLIFICATION NEGATIVE (NEGATIVE)
[2021-02-10 02:05] LABS: ALBUMIN 3.1 GM/DL (3.2-5.2); BILIRUBIN,DIRECT 0.1 MG/DL (0.0-0.2); BILIRUBIN,TOTAL 0.4 MG/DL (0.2-1.0); CALCIUM LEVEL 11.2 MG/DL (8.8-10.2); CREATININE FOR GFR 1.6 MG/DL (0.55-1.30); GLOMERULAR FILTRATION RATE 33.2 (>39); POTASSIUM SERUM 5.1 MEQ/L (3.5-5.1); TOTAL PROTEIN 6.4 GM/DL (6.4-8.2)
[2021-02-10] MEDS ORDERED: **hydrALAZINE** 50 MG TAB PO ONE (05:20)
[2021-02-10] MEDS: PANTOPRAZOLE 40MG TAB (PROTONIX) PO SCH (08:51)
[2021-02-10] MEDS: METOPROLOL TART 50 MG TAB PO SCH ×2 (08:51→23:59)
[2021-02-10 09:50] LABS: HEMATOCRIT 42.2 % (36.0-47.0); HEMOGLOBIN 13.8 g/dl (12.0-15.5); MEAN CORPUSCULAR HEMOGLOBIN 30.9 pg (27.0-33.0); MEAN CORPUSCULAR HGB CONC 32.7 g/dl (32.0-36.5); MEAN CORPUSCULAR VOLUME 94.4 fl (80.0-96.0); PLATELET COUNT, AUTOMATED 267 10^3/uL (150-450); RED BLOOD COUNT 4.47 10^6/uL (4.00-5.40)
[2021-02-10 09:59] LABS: BLOOD UREA NITROGEN 17 MG/DL (7-18); CALCIUM LEVEL 10.7 MG/DL (8.8-10.2); CARBON DIOXIDE LEVEL 25 MEQ/L (21-32); CHLORIDE LEVEL 110 MEQ/L (98-107); CREATININE FOR GFR 1.59 MG/DL (0.55-1.30); GLOMERULAR FILTRATION RATE 33.4 (>39); GLUCOSE, FASTING 89 MG/DL (70-100); MAGNESIUM LEVEL 1.9 MG/DL (1.8-2.4); POTASSIUM SERUM 3.8 MEQ/L (3.5-5.1); SODIUM LEVEL 139 MEQ/L (136-145); TROPONIN I < 0.02 NG/ML (< 0.10)
[2021-02-10] MEDS: ENOXAPARIN 100MG/1ML SYRINGE (J1650 PER 10MG) SC SCH (10:00)
[2021-02-10 10:18] LABS: HEMOGLOBIN A1c 5.1 %
--- NOTE | 2021-02-11 05:42 | ECGEPIP ---
[facility] - ED Test Date: 2021-02-10 Pat Name: SHARLENE HERNANDEZ Department: Room: [place] [address] Gender: Female [employer] Machine Operator: SHANTELLE : 1940 Requested By: Dirk Mendiola Order Number: [id number] Reading MD: Maximo Tellez Measurements Intervals [place] Rate: 95 P: IA: QRS: 23 QRSD: 84 T: 53 QT: 366 QTc: 459 Interpretive Statements Atrial fibrillation Nonspecific ST and T wave abnormality NO PRIORS FOR COMPARISON Electronically Signed on 02-11-2021 5:42:13 EDT by Maximo Tellez
[2021-02-11 07:29] LABS: BASO # 0.1 10^3/uL (0.0-0.2); BASO % 0.8 % (0.0-1.0); EOS # 0.2 10^3/uL (0.0-0.5); EOS % 2.8 % (0.0-3.0); HEMATOCRIT 41.4 % (36.0-47.0); HEMOGLOBIN 13.6 g/dl (12.0-15.5); LYMPH # 1.2 10^3/uL (1.5-5.0); LYMPH % 16.5 % (24.0-44.0); MEAN CORPUSCULAR HEMOGLOBIN 31.2 pg (27.0-33.0); MEAN CORPUSCULAR HGB CONC 32.9 g/dl (32.0-36.5); MONO # 0.6 10^3/uL (0.0-0.8); MONO % 7.8 % (2.0-8.0); NEUTROPHILS # 5.1 10^3/uL (1.5-8.5); NEUTROPHILS % 71.5 % (36.0-66.0); PLATELET COUNT, AUTOMATED 227 10^3/uL (150-450); RED BLOOD COUNT 4.36 10^6/uL (4.00-5.40); WHITE BLOOD COUNT 7.1 10^3/uL (4.0-10.0)
[2021-02-11 07:43] LABS: INR 1.37; PROTHROMBIN TIME 17.3 SECONDS (12.7-14.5)
[2021-02-11 07:54] LABS: BLOOD UREA NITROGEN 11 MG/DL (7-18); CALCIUM LEVEL 10.8 MG/DL (8.8-10.2); CARBON DIOXIDE LEVEL 26 MEQ/L (21-32); CHLORIDE LEVEL 110 MEQ/L (98-107); CREATININE FOR GFR 1.47 MG/DL (0.55-1.30); GLOMERULAR FILTRATION RATE 36.6 (>39); GLUCOSE, FASTING 99 MG/DL (70-100); POTASSIUM SERUM 3.7 MEQ/L (3.5-5.1); SODIUM LEVEL 141 MEQ/L (136-145); TROPONIN I < 0.02 NG/ML (< 0.10)
--- NOTE | 2021-02-11 07:56 | ER ---
ER CONSULTATION DATE: 02/10/2021 CONSULTING SERVICE: Orthopedic surgery. CONSULTING PHYSICIAN: Sandeep Harris MD HPI: This is a 80-year-old female with right ankle fracture. The patient has an unstable right ankle distal fibula Eli B ankle fracture with lateral translation of the talus with gravity stress. Past history includes Afib on Xarelto, previous DVT, previous PE, colon carcinoma - status post hemicolectomy, CHF, hypertension, GERD, She sustained a ground-level fall on the January,. The patient normally ambulates with assistive devices at her baseline. She fell at her home and tripped landing onto her right ankle. The patient denies feeling nauseous or dizzy prior to the event. PAST MEDICAL HISTORY: Includes aforementioned in HPI. PAST SURGICAL HISTORY: Hemicolectomy, x2, unspecified left shoulder repair. FAMILY HISTORY: Noncontributory. SOCIAL HISTORY: Tobacco use, previous alcohol social, illicit drug use patient denies. CURRENT MEDICATIONS/ALLERGIES: Please see Hospitalist note. REVIEW OF SYSTEMS: 14-point review of systems is negative unless otherwise described in HPI above. PHYSICAL EXAMINATION: Alert and oriented to person, time and place. The patient had a well padded L&U splint in place. However, I was able to appreciate the anterior surface of the ankle which had no skin breaks. She was comfortable with well padded L&U splint placed with dorsiflexion to neutral. She was otherwise neurovascularly intact. She had 5/5 motor strength of EHL, FHL, tibialis anterior, gastrocnemius and peroneal musculature. Sensation intact to light touch to the deep and superficial, peroneal, sural, saphenous and tibial nerve distributions. She had a palpable dorsalis pedis pulse; posterior tibial pulse could not be palpated due to the splint placement. Brisk capillary refill to the digits. RIGHT ANKLE RADIOGRAPHS: Demonstrate distal Eli B ankle fracture with lateral translation of the talus with gravity stress view. There appeared to be very minimal Chaput fragment which is minimally displaced on CT view. There was previous calcification of medial malleolus indicative of previous medial deltoid ligament injury. CT scan confirms the above with the addition of the Chaput fragment on the axial view. IMPRESSION: 80-year-old female with unstable ankle fracture. PLAN: At this point in time, given the patient's previous ambulatory status, I feel that she would do much better with surgical intervention. Given her multiple medical comorbidities she would fair better with percutaneous ankle surgery rather than standard open reduction and internal fixation. I plan to use a fibular nail with tensor cortical screw placement for this patient's injury in order to stabilize the ankle fracture and allow healing. The goal would be for return to ambulation with assistive devices in her household. The patient will be optimized for surgery on Thursday, February,. The patient was originally scheduled for surgery this morning on the 10 of February; however, she was not optimized. Given the fact that her swelling is increased I feel that we need to wait approximately five days prior to surgery. I recommend strict elevation at night and initiation of physical therapy for range of motion of the knee and hip. Please call me with any questions. Plan for surgery February, in the afternoon.
[2021-02-11 09:10] VITALS: BP 143/92
[2021-02-11] MEDS: ENOXAPARIN 100MG/1ML SYRINGE (J1650 PER 10MG) SC SCH ×3 (09:26→21:32)
[2021-02-11] MEDS: D5W/0.9% SODIUM CHLORIDE 1,000 ML IV SCH ×2 (09:27→17:31)
[2021-02-11] MEDS: PANTOPRAZOLE 40MG TAB (PROTONIX) PO SCH (10:13)
[2021-02-11] MEDS: METOPROLOL TART 50 MG TAB PO SCH ×2 (10:14→21:33)
--- NOTE | 2021-02-11 10:42 | IPNPDOC ---
Text Note Date of Service The patient was seen on 02/11/21. NOTE Subjective: Patient seen and examined at bedside. No acute overnight events reported. Patient voices no new medical complaints this morning. Objective: Vital Signs: reviewed General: NAD, lying comfortably in bed HEENT: NC/AT, EOMI, very hard of hearing Neck: supple, no masses Chest: lungs CTA B/L Heart: +S1S2, irregular Abd: soft, NT, ND, +BS Ext: no edema, bandages in place on right foot Skin: no rashes Neuro: no gross focal deficits other than hearing loss Psych: AAOx3 A/P: 80F with PMHx including afib/xarelto, dvt/PE, colon CA/hemicolectomy, HFpEF, GERD presents for mechanical fall, found have right ankle fx. #right ankle fx - ortho c/s appreciated - plan for OR on 02/15 - echo pending - Posterior splint placed by ED provider - Toradol/morphine for pain #A-fib with rvr - continue metoprolol - holding xarelto for surgical intervention - continue therapeutic lovenox #Chronic HFpEF / Severe Pulmonary HTN - the last Echo done in 2011 reported that the peak systolic pressure was greater than 75 - patient does not appear to be significantly fluid overloaded despite bnp >3000 - cxr clear - f/u repeat Echo prior to surgery #hypercalcemia - improving #GERD - continue protonix #CKD - cr at baseline #Hx DVT/PE DVT prophylaxis - as above, therapeutic lovenox Dispo: pending echo and medical optimization for planned surgical intervention 02/15/21 VS,Fishbone, I+O VS, Fishbone, I+O Laboratory Tests 02/11/21 07:14 Vital Signs Date Time Temp Pulse Resp B/P (MAP) Pulse Ox O2 Delivery O2 Flow Rate FiO2 02/11/21 10:14 80 143/92 02/11/21 09:10 97.6 18 97 02/11/21 07:30 Room Air JOSE DUNN MD Feb 11, 2021 10:42
[2021-02-11 14:00] VITALS: BP 142/93
[2021-02-11] MEDS ORDERED: FLUBLOK(EGG FREE)(QUAD)INFLUENZA VACC 0.5ML SYRINGE 18YRS & OLDER IM ONE (14:00)
--- NOTE | 2021-02-11 20:23 | ECHO ---
ECHOCARDIOGRAM DATE OF PROCEDURE: 02/11/2021 Age: 80 Gender: Female Height: 170 cm Weight: 91 kg REFERRING PHYSICIAN: FIFI Wu- INDICATION: Congestive heart failure. MEASUREMENTS: IVS 1.5 cm LV 4.3 cm LVPW 1.5 cm LA 3.8 cm Aorta 3.9 cm IVC 1.7 cm FINDINGS: This study is of fair technical quality. Underlying atrial fibrillation with controlled rate. Left ventricle has normal size and overall normal contractility, estimated EF around 60% to 655. No segmental wall motion abnormalities were appreciated based on fair visualization. Right ventricle was also of normal size and systolic function. There is severe biatrial enlargement. Aortic valve has 3 cusps. It is sclerotic but cusp mobility is preserved. Also mild degenerative abnormalities of the mitral valve with mitral annular calcifications, but mobility of leaflets is preserved. Tricuspid and pulmonic valves appear grossly normal. No pericardial effusion is noted. Inferior vena cava is normal size and appropriately collapses with inspiration indicative of normal central venous pressure. The aortic root is normal. Mildly dilated ascending aorta 3.9 cm. Doppler interrogation reveals no aortic stenosis and trace insufficiency. There is also mild mitral and tricuspid insufficiency. Calculated pulmonary artery pressure is in the high 30s corresponding to mild pulmonary hypertension. Evaluation of diastolic function is inconclusive due to underlying atrial fibrillation. CONCLUSION: 1. Study is if of fair technical quality, underlying atrial fibrillation with controlled ventricular rate. 2. Normal LV size with moderate LVH and preserved LV systolic function. 3. Aortic sclerosis with trace insufficiency and no stenosis. 4. Mild mitral and tricuspid insufficiency. 5. Normal central venous pressure and likely mild pulmonary hypertension. 6. Severe biatrial enlargement. 7. Borderline dilated ascending aorta. MTDD
[2021-02-11 22:00] VITALS: BP 147/93
[2021-02-12] MEDS: D5W/0.9% SODIUM CHLORIDE 1,000 ML IV SCH (03:27)
[2021-02-12 06:00] VITALS: BP 133/87
[2021-02-12 06:42] LABS: HEMATOCRIT 37.3 % (36.0-47.0); HEMOGLOBIN 12.3 g/dl (12.0-15.5); MEAN CORPUSCULAR HEMOGLOBIN 30.9 pg (27.0-33.0); MEAN CORPUSCULAR VOLUME 93.7 fl (80.0-96.0); PLATELET COUNT, AUTOMATED 214 10^3/uL (150-450); RED BLOOD COUNT 3.98 10^6/uL (4.00-5.40); WHITE BLOOD COUNT 6.2 10^3/uL (4.0-10.0)
[2021-02-12 06:57] LABS: INR 1.28; PROTHROMBIN TIME 16.4 SECONDS (12.7-14.5)
[2021-02-12 07:15] LABS: CALCIUM LEVEL 9.8 MG/DL (8.8-10.2); CREATININE FOR GFR 1.43 MG/DL (0.55-1.30); GLOMERULAR FILTRATION RATE 37.8 (>39); POTASSIUM SERUM 4.1 MEQ/L (3.5-5.1); TROPONIN I 0.02 NG/ML (< 0.10)
[2021-02-12] MEDS: ENOXAPARIN 100MG/1ML SYRINGE (J1650 PER 10MG) SC SCH ×2 (09:02→21:09)
[2021-02-12] MEDS: PANTOPRAZOLE 40MG TAB (PROTONIX) PO SCH (09:03)
[2021-02-12] MEDS: METOPROLOL TART 50 MG TAB PO SCH ×2 (09:03→21:09)
--- NOTE | 2021-02-12 12:44 | IPNPDOC ---
Text Note Date of Service The patient was seen on 02/12/21. NOTE Subjective: Patient is a 80-year-old female with a PMHx of A fib (on Xarelto), CHF, HTN, Hx of DVT / PE, Colon CA (s/p Hemicolectomy), GERD who presented to the ER on 02/09 after a fall at home when she took a misstep. Patient had reported significant right ankle pain. In the ER, patient was found to have a right ankle fracture. She was admitted to the hospital service for further evaluation and treatment. Patient seen and examined at bedside. Patient denies any chest pain, shortness breath, palpitations, nausea, vomiting, abdominal pain or diarrhea. Patient does report some right ankle pain if she moves it. Objective: Vitals (See below) General: Lying in bed, appears comfortable, AAOx3 HEENT: NC, AT CVS: RRR, +S1S2 Lungs: Fair air entry b/l, -w/r/r Abdomen: Soft, ND, NT Extremities: R ankle with splinting / dressing, LLE without edema Imaging: Ankle XR 02/09: 1. Acute spiral fracture distal fibular. 2. Small ossific or calcific fragments distal to the medial malleolus may represent avulsion injuries. 3. Widening of the medial ankle mortise. Head CT 02/09: No acute intracranial abnormality. Foot XR 02/09: 1. Bones of the foot appear intact. 2. Please refer to report for x-ray of the ankle for additional details. Tib/Fib XR 02/09: Mildly displaced oblique fracture involving the distal aspect of the fibula. CXR 02/09: No acute process. Extremity CT 02/09: 1. Mildly displaced oblique fracture involving the distal aspect of the fibula. 2. Mildly displaced intra-articular fracture involving the anterior/lateral distal tibia adjacent to the fibula. 3. Avulsion fracture at the inferior tip of the medial malleolus. 4. Medial ankle mortise widening. Ankle XR 02/09: 1. Medial ankle mortise widening increases to 8 mm with stress. 2. Mildly displaced oblique fracture of the distal fibula. 3. Avulsion fracture of the tip of the medial malleolus. ECHO 02/11: 1. Study is if of fair technical quality, underlying atrial fibrillation with controlled ventricular rate. 2. Normal LV size with moderate LVH and preserved LV systolic function. 3. Aortic sclerosis with trace insufficiency and no stenosis. 4. Mild mitral and tricuspid insufficiency. 5. Normal central venous pressure and likely mild pulmonary hypertension. 6. Severe biatrial enlargement. 7. Borderline dilated ascending aorta. Assessment and plan: Right ankle fracture - 05/15 fall - Patient reported that she had stumbled and fallen - Imaging noted above - c/w Morphine PRN - Orthopedic surgery on consultation; Surgery scheduled for 02/15 - Confirmed with Dr. Harris today - Patient is medically optimized at moderate risk for low-risk procedure; risks and benefits discussed; patient has verbalized understanding A fib - c/w rate control with metoprolol - s/o Xarelto - c/w full anticoagulation with Xarelto Chronic HFpEF / Severe Pulmonary HTN - Clinically does not appear to have any signs of fluid overload - ECHO noted above - Imaging noted above - Will DC IV fluids CKD3 - Cr baseline of 1.4-1.6 - Cr at baseline - Avoid nephrotoxic medications; s/p Ketorolac Hx DVT/PE - Xarelto on hold - c/w Lovenox therapeutic GERD - c/w Protonix DVT prophylaxis - c/w Lovenox therapeutic dosing; Xarelto on hold Disposition: - Pending clinical improvement VS,Brandon, I+O VS, Brandon I+O Laboratory Tests 02/12/21 05:52 Vital Signs Date Time Temp Pulse Resp B/P (MAP) Pulse Ox O2 Delivery O2 Flow Rate FiO2 02/12/21 09:03 82 149/101 02/12/21 06:00 98.3 18 100 Room Air I&O- Last 24 Hours up to 6 AM 02/12/21 06:00 Intake Total 3630 ml Output Total 250 ml Balance 3380 ml JACINTA LAWRENCE MD Feb 12, 2021 12:44
[2021-02-12 14:00] VITALS: BP 146/86
[2021-02-12 22:00] VITALS: BP 165/90
[2021-02-13 06:00] VITALS: BP 154/81
[2021-02-13 08:27] LABS: BASO # 0.1 10^3/uL (0.0-0.2); BASO % 1.2 % (0.0-1.0); EOS # 0.3 10^3/uL (0.0-0.5); EOS % 4.5 % (0.0-3.0); HEMATOCRIT 37.3 % (36.0-47.0); HEMOGLOBIN 12.5 g/dl (12.0-15.5); LYMPH # 1.5 10^3/uL (1.5-5.0); LYMPH % 24.8 % (24.0-44.0); MEAN CORPUSCULAR HEMOGLOBIN 30.9 pg (27.0-33.0); MEAN CORPUSCULAR HGB CONC 33.5 g/dl (32.0-36.5); MEAN CORPUSCULAR VOLUME 92.3 fl (80.0-96.0); MONO # 0.6 10^3/uL (0.0-0.8); MONO % 9.5 % (2.0-8.0); NEUTROPHILS # 3.6 10^3/uL (1.5-8.5); NEUTROPHILS % 59.2 % (36.0-66.0); PLATELET COUNT, AUTOMATED 206 10^3/uL (150-450); RED BLOOD COUNT 4.04 10^6/uL (4.00-5.40)
[2021-02-13 08:59] LABS: CALCIUM LEVEL 10.3 MG/DL (8.8-10.2); CREATININE FOR GFR 1.39 MG/DL (0.55-1.30); MAGNESIUM LEVEL 1.6 MG/DL (1.8-2.4)
[2021-02-13] MEDS: ENOXAPARIN 100MG/1ML SYRINGE (J1650 PER 10MG) SC SCH ×2 (09:24→21:55)
[2021-02-13] MEDS: PANTOPRAZOLE 40MG TAB (PROTONIX) PO SCH (09:26)
[2021-02-13] MEDS: METOPROLOL TART 50 MG TAB PO SCH ×2 (09:26→21:56)
--- NOTE | 2021-02-13 09:29 | IPNPDOC ---
Text Note Date of Service The patient was seen on 02/13/21. NOTE Subjective: Patient is a 80-year-old female with a PMHx of A fib (on Xarelto), CHF, HTN, Hx of DVT / PE, Colon CA (s/p Hemicolectomy), GERD who presented to the ER on 02/09 after a fall at home when she took a misstep. Patient had reported significant right ankle pain. In the ER, patient was found to have a right ankle fracture. She was admitted to the hospital service for further evaluation and treatment. Patient seen and examined at bedside. Patient is an uneventful night. Denies any chest pain, shortness breath, palpitations, nausea, vomiting, abdominal pain or diarrhea. Objective: Vitals (See below) General: Patient is sitting up in bed, appears to be comfortable, not in acute distress, awake, alert, oriented 3 HEENT: NC, AT CVS: +S1S2 Lungs: Fair air entry b/l, no evidence of wheezing, rales or rhonchi Abdomen: Soft, nondistended, nontender Extremities: Right ankle with splinting in place, Left lower extremity without edema Imaging: Ankle XR 02/09: 1. Acute spiral fracture distal fibular. 2. Small ossific or calcific fragments distal to the medial malleolus may represent avulsion injuries. 3. Widening of the medial ankle mortise. Head CT 02/09: No acute intracranial abnormality. Foot XR 02/09: 1. Bones of the foot appear intact. 2. Please refer to report for x-ray of the ankle for additional details. Tib/Fib XR 02/09: Mildly displaced oblique fracture involving the distal aspect of the fibula. CXR 02/09: No acute process. Extremity CT 02/09: 1. Mildly displaced oblique fracture involving the distal aspect of the fibula. 2. Mildly displaced intra-articular fracture involving the anterior/lateral distal tibia adjacent to the fibula. 3. Avulsion fracture at the inferior tip of the medial malleolus. 4. Medial ankle mortise widening. Ankle XR 02/09: 1. Medial ankle mortise widening increases to 8 mm with stress. 2. Mildly displaced oblique fracture of the distal fibula. 3. Avulsion fracture of the tip of the medial malleolus. ECHO 02/11: 1. Study is if of fair technical quality, underlying atrial fibrillation with controlled ventricular rate. 2. Normal LV size with moderate LVH and preserved LV systolic function. 3. Aortic sclerosis with trace insufficiency and no stenosis. 4. Mild mitral and tricuspid insufficiency. 5. Normal central venous pressure and likely mild pulmonary hypertension. 6. Severe biatrial enlargement. 7. Borderline dilated ascending aorta. Assessment and plan: Right ankle fracture - 05/15 fall - Patient reported that she had stumbled and fallen - Imaging noted above - c/w Morphine PRN - Orthopedic surgery on consultation; Surgery scheduled for 02/[address] Kai erickson - Patient is medically optimized at moderate risk for low-risk procedure; risks and benefits discussed; patient has verbalized understanding - c/w PT as per Ortho recommendations A fib - c/w rate control with metoprolol - s/o Xarelto - c/w full anticoagulation with Xarelto Chronic HFpEF / Severe Pulmonary HTN - Clinically does not appear to have any signs of fluid overload - ECHO noted above - Imaging noted above - s/p IV fluids CKD3 - Cr baseline of 1.4-1.6 - Cr at baseline - Avoid nephrotoxic medications; s/p Ketorolac Hx DVT/PE - Xarelto on hold - c/w Lovenox therapeutic GERD - c/w Protonix DVT prophylaxis - c/w Lovenox therapeutic dosing; Xarelto on hold Disposition: - Pending clinical improvement - Surgery scheduled for 02/15 VS,Fishbone, I+O VS, Fishbone, I+O Laboratory Tests 02/13/21 08:10 Vital Signs Date Time Temp Pulse Resp B/P (MAP) Pulse Ox O2 Delivery O2 Flow Rate FiO2 02/13/21 06:00 97.6 80 18 154/81 (105) 97 Room Air I&O- Last 24 Hours up to 6 AM 02/13/21 06:00 Intake Total 810 ml Balance 810 ml JACINTA LAWRENCE MD Feb 13, 2021 09:29
[2021-02-13 14:00] VITALS: BP 148/98
[2021-02-13] MEDS: MAG SULF 1GM/100ML (MAG RUN) 1 GM in IV 1 EA IV SCH ×2 (14:57→17:07)
[2021-02-13] MEDS ORDERED: FUROSEMIDE 40MG/4ML VIAL (J1940) IV ONE (15:05)
[2021-02-13 22:00] VITALS: BP 136/95
[2021-02-14 06:01] VITALS: BP 132/80
[2021-02-14 06:47] LABS: BASO # 0.1 10^3/uL (0.0-0.2); BASO % 1.3 % (0.0-1.0); EOS # 0.3 10^3/uL (0.0-0.5); EOS % 4.2 % (0.0-3.0); HEMATOCRIT 43.2 % (36.0-47.0); LYMPH # 1.4 10^3/uL (1.5-5.0); MEAN CORPUSCULAR HEMOGLOBIN 30.4 pg (27.0-33.0); MEAN CORPUSCULAR HGB CONC 32.4 g/dl (32.0-36.5); MEAN CORPUSCULAR VOLUME 93.9 fl (80.0-96.0); MONO # 0.7 10^3/uL (0.0-0.8); MONO % 9.2 % (2.0-8.0); NEUTROPHILS # 5.2 10^3/uL (1.5-8.5); NEUTROPHILS % 66.5 % (36.0-66.0); PLATELET COUNT, AUTOMATED 266 10^3/uL (150-450); WHITE BLOOD COUNT 7.8 10^3/uL (4.0-10.0)
[2021-02-14 07:10] LABS: CALCIUM LEVEL 11.1 MG/DL (8.8-10.2); CREATININE FOR GFR 1.68 MG/DL (0.55-1.30); GLOMERULAR FILTRATION RATE 31.4 (>39); MAGNESIUM LEVEL 2.2 MG/DL (1.8-2.4); POTASSIUM SERUM 3.9 MEQ/L (3.5-5.1)
[2021-02-14] MEDS: ENOXAPARIN 100MG/1ML SYRINGE (J1650 PER 10MG) SC SCH (09:36)
[2021-02-14] MEDS: PANTOPRAZOLE 40MG TAB (PROTONIX) PO SCH (09:36)
[2021-02-14] MEDS: METOPROLOL TART 50 MG TAB PO SCH ×2 (09:40→20:47)
[2021-02-14 11:16] LABS: PTH INTACT 234.4 PG/ML (18.5-88.0); TOTAL 25(OH) VITAMIN D 25.9 NG/ML (30.0-100.0)
--- NOTE | 2021-02-14 13:57 | IPNPDOC ---
Text Note Date of Service The patient was seen on 02/14/21. NOTE Subjective: Patient is a 80-year-old female with a PMHx of A fib (on Xarelto), CHF, HTN, Hx of DVT / PE, Colon CA (s/p Hemicolectomy), GERD who presented to the ER on 02/09 after a fall at home when she took a misstep. Patient had reported significant right ankle pain. In the ER, patient was found to have a right ankle fracture. She was admitted to the hospital service for further evaluation and treatment. Patient seen and examined at bedside. Again. She has had an uneventful night. She denies any nausea, vomiting, abdominal pain, diarrhea. Reports right ankle discomfort. Objective: Vitals (See below) General: Patient is laying up in bed, appears to be comfortable, no acute distress, awake and alert HEENT: Atraumatic and normocephalic CVS: +S1S2 Lungs: Air entry appears to be fair bilaterally without any evidence of wheezing, crackles or rhonchi Abdomen: Soft without any distention or tenderness Extremities: LLE without any edema, RLE with dressing/splint in place Imaging: Ankle XR 02/09: 1. Acute spiral fracture distal fibular. 2. Small ossific or calcific fragments distal to the medial malleolus may represent avulsion injuries. 3. Widening of the medial ankle mortise. Head CT 02/09: No acute intracranial abnormality. Foot XR 02/09: 1. Bones of the foot appear intact. 2. Please refer to report for x-ray of the ankle for additional details. Tib/Fib XR 02/09: Mildly displaced oblique fracture involving the distal aspect of the fibula. CXR 02/09: No acute process. Extremity CT 02/09: 1. Mildly displaced oblique fracture involving the distal aspect of the fibula. 2. Mildly displaced intra-articular fracture involving the anterior/lateral distal tibia adjacent to the fibula. 3. Avulsion fracture at the inferior tip of the medial malleolus. 4. Medial ankle mortise widening. Ankle XR 02/09: 1. Medial ankle mortise widening increases to 8 mm with stress. 2. Mildly displaced oblique fracture of the distal fibula. 3. Avulsion fracture of the tip of the medial malleolus. ECHO 02/11: 1. Study is if of fair technical quality, underlying atrial fibrillation with controlled ventricular rate. 2. Normal LV size with moderate LVH and preserved LV systolic function. 3. Aortic sclerosis with trace insufficiency and no stenosis. 4. Mild mitral and tricuspid insufficiency. 5. Normal central venous pressure and likely mild pulmonary hypertension. 6. Severe biatrial enlargement. 7. Borderline dilated ascending aorta. Assessment and plan: Right ankle fracture - 2/2 fall - Patient reported that she had stumbled and fallen - Imaging noted above - c/w Morphine PRN - Orthopedic surgery on consultation; Surgery scheduled for 02/[address] 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 - Mild - Will correct for albumin - Ionized calcium elevated - PTH elevated / Vitamin D low - Will check phosphorus levels A fib - c/w rate control with metoprolol - s/o Xarelto - c/w full anticoagulation with Xarelto Chronic HFpEF / Severe Pulmonary HTN - Clinically does not appear to have any signs of fluid overload - ECHO noted above - Imaging noted above - s/p IV fluids CKD3 - Cr baseline of 1.4-1.6 - Cr at baseline - Avoid nephrotoxic medications; s/p Ketorolac Hx DVT/PE - Xarelto on hold - c/w Lovenox therapeutic GERD - c/w Protonix DVT prophylaxis - c/w Lovenox therapeutic dosing; Xarelto on hold Disposition: - Pending clinical improvement - Surgery scheduled for tomorrow VS,Fishbone, I+O VS, Fishbone, I+O Laboratory Tests 02/14/21 05:35 Vital Signs Date Time Temp Pulse Resp B/P (MAP) Pulse Ox O2 Delivery O2 Flow Rate FiO2 02/14/21 09:40 104 141/94 02/14/21 06:00 99.0 16 96 Room Air I&O- Last 24 Hours up to 6 AM 02/14/21 06:00 Intake Total 1140 ml Output Total 2700 ml Balance -1560 ml JACINTA LAWRENCE MD Feb 14, 2021 13:57
[2021-02-14 14:00] VITALS: BP 119/88
[2021-02-14 16:27] LABS: PHOSPHORUS LEVEL 2.9 MG/DL (2.5-4.9)
[2021-02-14 22:00] VITALS: BP 116/85
[2021-02-15 06:00] VITALS: BP 128/78
[2021-02-15] MEDS ORDERED: MIDAZOLAM INJ 2MG/2ML VIAL (J2250 PER 1MG) IV PRN (07:01)
[2021-02-15] MEDS ORDERED: fentaNYL 100 MCG/2 ML INJECTION (J3010) IV PRN (07:01)
[2021-02-15] MEDS: PANTOPRAZOLE 40MG TAB (PROTONIX) PO SCH (09:27)
[2021-02-15] MEDS: METOPROLOL TART 50 MG TAB PO SCH ×2 (09:28→20:33)
[2021-02-15 11:34] LABS: BASO # 0.1 10^3/uL (0.0-0.2); BASO % 0.6 % (0.0-1.0); EOS # 0.4 10^3/uL (0.0-0.5); EOS % 4.7 % (0.0-3.0); HEMATOCRIT 45.1 % (36.0-47.0); HEMOGLOBIN 14.4 g/dl (12.0-15.5); LYMPH # 1.2 10^3/uL (1.5-5.0); LYMPH % 15.3 % (24.0-44.0); MEAN CORPUSCULAR HEMOGLOBIN 30.3 pg (27.0-33.0); MEAN CORPUSCULAR HGB CONC 31.9 g/dl (32.0-36.5); MEAN CORPUSCULAR VOLUME 94.7 fl (80.0-96.0); MONO # 0.7 10^3/uL (0.0-0.8); MONO % 9.2 % (2.0-8.0); NEUTROPHILS # 5.4 10^3/uL (1.5-8.5); NEUTROPHILS % 69.2 % (36.0-66.0); PLATELET COUNT, AUTOMATED 288 10^3/uL (150-450); RED BLOOD COUNT 4.76 10^6/uL (4.00-5.40); WHITE BLOOD COUNT 7.8 10^3/uL (4.0-10.0)
[2021-02-15 11:50] LABS: CALCIUM LEVEL 11.1 MG/DL (8.8-10.2); CREATININE FOR GFR 1.77 MG/DL (0.55-1.30); GLOMERULAR FILTRATION RATE 29.5 (>39); MAGNESIUM LEVEL 2.2 MG/DL (1.8-2.4); POTASSIUM SERUM 3.9 MEQ/L (3.5-5.1)
[2021-02-15 14:00] VITALS: BP 128/85
--- NOTE | 2021-02-15 14:55 | IPNPDOC ---
Text Note Date of Service The patient was seen on 02/15/21. NOTE Subjective: Patient is a 80-year-old female with a PMHx of A fib (on Xarelto), CHF, HTN, Hx of DVT / PE, Colon CA (s/p Hemicolectomy), GERD who presented to the ER on 02/09 after a fall at home when she took a misstep. Patient had reported significant right ankle pain. In the ER, patient was found to have a right ankle fracture. She was admitted to the hospital service for further evaluation and treatment. Patient seen and examined at bedside. Patient has had no clinical change since yesterday, appears relatively comfortable, no chest pain, cough, abdominal pain, diarrhea, or urinary discomfort. Patient is in bed, reports some pain of her right ankle with movement. Patient is scheduled to go to the OR later today. Objective: Vitals (See below) General: Patient is laying flat in bed, appears comfortable, no acute distress, oriented to person, place HEENT: AT and NC CVS: +S1S2 Lungs: Air entry appears to be fair bilaterally without any evidence of rhonchi, crackles or wheezing Abdomen: soft, ND, NT Extremities: No edema at LLE, RLE with splinting / dressing in place Imaging: Ankle XR 02/09: 1. Acute spiral fracture distal fibular. 2. Small ossific or calcific fragments distal to the medial malleolus may represent avulsion injuries. 3. Widening of the medial ankle mortise. Head CT 02/09: No acute intracranial abnormality. Foot XR 02/09: 1. Bones of the foot appear intact. 2. Please refer to report for x-ray of the ankle for additional details. Tib/Fib XR 02/09: Mildly displaced oblique fracture involving the distal aspect of the fibula. CXR 02/09: No acute process. Extremity CT 02/09: 1. Mildly displaced oblique fracture involving the distal aspect of the fibula. 2. Mildly displaced intra-articular fracture involving the anterior/lateral distal tibia adjacent to the fibula. 3. Avulsion fracture at the inferior tip of the medial malleolus. 4. Medial ankle mortise widening. Ankle XR 02/09: 1. Medial ankle mortise widening increases to 8 mm with stress. 2. Mildly displaced oblique fracture of the distal fibula. 3. Avulsion fracture of the tip of the medial malleolus. ECHO 02/11: 1. Study is if of fair technical quality, underlying atrial fibrillation with controlled ventricular rate. 2. Normal LV size with moderate LVH and preserved LV systolic function. 3. Aortic sclerosis with trace insufficiency and no stenosis. 4. Mild mitral and tricuspid insufficiency. 5. Normal central venous pressure and likely mild pulmonary hypertension. 6. Severe biatrial enlargement. 7. Borderline dilated ascending aorta. Assessment and plan: Right ankle fracture - 2/2 fall - Patient reported that she had stumbled and fallen and reported several R ankle pain - Imaging noted above - c/w Morphine PRN - Orthopedic surgery on consultation; Surgery scheduled for this evening with Dr. Harris - Patient is medically optimized at moderate risk for low-risk procedure; risks and benefits discussed; patient has verbalized understanding - c/w PT as per Ortho recommendations Hypercalcemia (mild) - likely 2/2 primary or tertiary hyperparathyroidism - Ionized calcium elevated - PTH elevated / Vitamin D low - Will get thyroid / parathyroid US A fib - c/w rate control with metoprolol - s/p Xarelto - c/w full anticoagulation with Lovenox (on hold for OR) Chronic HFpEF / Severe Pulmonary HTN - Clinically does not appear to have any signs of fluid overload - ECHO noted above - Imaging noted above - s/p IV fluids CKD3 - Cr baseline of 1.4-1.6 - Cr at baseline - Avoid nephrotoxic medications; s/p Ketorolac Hx DVT/PE - Xarelto on hold - Hold Lovenox therapeutic (for OR) GERD - c/w Protonix DVT prophylaxis - Hold Lovenox therapeutic dosing (for OR); Xarelto on hold Disposition: - Pending clinical improvement - Surgery scheduled for this evening VS,Fishbone, I+O VS, Fishbone, I+O Laboratory Tests 02/15/21 10:56 Vital Signs Date Time Temp Pulse Resp B/P (MAP) Pulse Ox O2 Delivery O2 Flow Rate FiO2 02/15/21 09:28 62 136/88 02/15/21 06:00 98.9 18 99 Room Air I&O- Last 24 Hours up to 6 AM 02/15/21 05:59 Intake Total 2000 ml Output Total 975 ml Balance 1025 ml JACINTA LAWRENCE MD Feb 15, 2021 14:55
[2021-02-15] MEDS ORDERED: fentaNYL 100 MCG/2 ML INJECTION (J3010) As Ordered ONE (19:05)
[2021-02-15] MEDS ORDERED: ONDANSETRON 4MG/2ML VIAL As Ordered ONE (19:06)
[2021-02-15] MEDS ORDERED: ROCURONIUM BROMIDE 50 MG/5 ML VIAL As Ordered ONE ×2 (19:06→22:26)
[2021-02-15] MEDS ORDERED: LIDOCAINE 2% 100MG/5ML SDV (FOR ANES.) As Ordered ONE (19:06)
[2021-02-15] MEDS ORDERED: dexameTHASONE 4 MG/ML 1ML VIAL (J1100 PER 1MG) As Ordered ONE (19:06)
[2021-02-15] MEDS ORDERED: propofoL 200 MG/20 ML VIAL As Ordered ONE (19:06)
--- NOTE | 2021-02-15 19:55 | REP ---
INDICATION: Hypercalcemia. COMPARISON: Parathyroid ultrasound 10/28/2007 TECHNIQUE: Standard thyroid sonography. FINDINGS: Right lobe is 4.4 x 2.2 x 2.2 cm in the left lobe 4.7 x 1.7 x 2.1 cm thyroid lobes are generally homogeneous without discrete mass, cyst, contour deformity or abnormalities in color flow. Isthmus has a thickness of 8 mm. IMPRESSION: 1. Homogeneous thyroid lobes without discrete mass. Somewhat thickened isthmus and fullness of the lobes without discrete nodule or heterogeneity. Specifically there are no posterior nodules to suggest the ultrasound evidence for parathyroid adenoma. A parathyroid nuclear scan is much more sensitive in the search for that finding. <Electronically signed by Homer Hanson > 02/15/211951
[2021-02-15] MEDS ORDERED: ROPIvacaine 0.5% 30ML INJECTION (J2795 PER 1MG) XX ONE (20:20)
[2021-02-15] MEDS ORDERED: LIDOCAINE 1% MDV 20ML VIAL XX ONE (20:20)
[2021-02-15] MEDS ORDERED: dexameTHASONE 10MG/1ML VIAL PRES.FREE (J1100 PER 1MG) XX ONE (20:20)
[2021-02-15] MEDS ORDERED: ceFAZolin 2 GM/D5W 50 ML IV BAG (J0690 PER 500MG) As Ordered ONE (20:27)
[2021-02-15] MEDS ORDERED: VANCOMYCIN 1000MG/20ML VIAL As Ordered ONE (21:31)
[2021-02-15] MEDS ORDERED: TRANEXAMIC ACID 100 MG/ML 10ML VIAL As Ordered ONE (21:31)
[2021-02-15 22:00] VITALS: BP 132/86
[2021-02-15] MEDS: ENOXAPARIN 100MG/1ML SYRINGE (J1650 PER 10MG) SC SCH (22:00)
[2021-02-15] MEDS ORDERED: SUGAMMADEX SODIUM 500 MG/5 ML VIAL (BRIDION) As Ordered ONE (22:13)
[2021-02-15] MEDS ORDERED: ePHEDrine SULFATE 25 MG/5 ML(5MG/ML) SYRINGE As Ordered ONE (22:13)
[2021-02-16] VITALS (11 sets, daily range): BP systolic 127–141; BP diastolic 88–94
--- NOTE | 2021-02-16 00:17 | REPVR ---
PROCEDURE INFORMATION: Exam: XR Left Ankle Exam date and time: 02/15/2021 10:58 PM Age: 80 years old Clinical indication: Condition or disease; Condition/disease: Right ankle fracture TECHNIQUE: Imaging protocol: XR Left ankle. Views: Multiple views from ORIF. COMPARISON: No relevant prior studies available. FINDINGS: Limitations: Limited intraoperative radiographs. Bones/joints: Acute mildly displaced oblique fracture of the distal fibular metaphysis. There is interval placement of locking intramedullary nail and syndesmotic screws. Fracture fragments are grossly anatomic alignment post fixation. Soft tissues: Not well evaluated. IMPRESSION: Status post fixation of distal fibular fracture. See also separate procedure notes. Electronically signed by: Ani Hou On 02/16/2021 00:17:19 AM
[2021-02-16 06:07] LABS: BASO % 0.1 % (0.0-1.0); EOS % 0.1 % (0.0-3.0); HEMATOCRIT 43.9 % (36.0-47.0); HEMOGLOBIN 14.3 g/dl (12.0-15.5); LYMPH # 0.5 10^3/uL (1.5-5.0); LYMPH % 6.1 % (24.0-44.0); MEAN CORPUSCULAR HEMOGLOBIN 30.5 pg (27.0-33.0); MEAN CORPUSCULAR HGB CONC 32.6 g/dl (32.0-36.5); MEAN CORPUSCULAR VOLUME 93.6 fl (80.0-96.0); MONO # 0.1 10^3/uL (0.0-0.8); MONO % 1.3 % (2.0-8.0); NEUTROPHILS # 7.3 10^3/uL (1.5-8.5); NEUTROPHILS % 91.8 % (36.0-66.0); PLATELET COUNT, AUTOMATED 269 10^3/uL (150-450); RED BLOOD COUNT 4.69 10^6/uL (4.00-5.40); WHITE BLOOD COUNT 7.9 10^3/uL (4.0-10.0)
[2021-02-16 06:25] LABS: CALCIUM LEVEL 11.2 MG/DL (8.8-10.2); CREATININE FOR GFR 1.74 MG/DL (0.55-1.30); GLOMERULAR FILTRATION RATE 30.1 (>39); MAGNESIUM LEVEL 2.2 MG/DL (1.8-2.4); POTASSIUM SERUM 4.7 MEQ/L (3.5-5.1)
--- NOTE | 2021-02-16 08:14 | RO ---
OPERATIVE NOTE DATE OF OPERATION: 02/15/2021 TIME: 9:30 p.m. PREOPERATIVE DIAGNOSIS: Right ankle fracture. POSTOPERATIVE DIAGNOSIS: Right ankle fracture. NAME OF OPERATION: Right ankle open reduction and internal fixation with a fibular intramedullary nail. SURGEON: Sandeep Harris MD PLASMA TABLE OPERATOR: None. SUPERVISING ATTENDING: Sandeep Harris MD FINDINGS: The patient had an unstable Eli B ankle fracture requiring fixation for alignment and stability of ankle. INDICATIONS: This was a 80-year-old female with a right ankle fracture which is closed. This was an unstable distal fibular Eli B ankle fracture with lateral translation of the talus with a gravity stress view. The patient's history included A fib on Xarelto, previous DVT, previous PE, colon carcinoma, status post hemicolectomy, congestive heart failure, hypertension, GERD. She sustained a ground-level fall on the January,. She was initially planned to go to surgery on the 11 of February. However, due to failure to be cleared for surgery, her swelling got worse and required soft tissue rest and elevation. She was indicated for surgery today for the aforementioned injury. ANESTHESIA: GETA. TOURNIQUET TIME: 60 minutes. ESTIMATED BLOOD LOSS: 20 mL. IV FLUIDS: Please see anesthesia report. IV ANTIBIOTICS: Please see anesthesia report. IMPLANTS: Arthrex. CULTURES: None. SPECIMENS: None. DESCRIPTION OF PROCEDURE: The patient was met in the preoperative holding area where the patient's operative extremity was signed, the patient's consent was confirmed to be correct, and the patient's identity was confirmed to be correct. The patient was then transported to the operating theater where she was placed on a supine position on a regular surgical flat-top bed with a radiolucent extension. A safety strap secured the patient to the bed. All bony prominences were well padded. The contralateral lower extremity had an SCD placed. A timeout was called which confirmed the correct patient, correct operative extremity and correct consent. All staff were in agreement. The patient was then draped in the usual sterile fashion. We began the procedure by marking out the level of the fracture and marked out a percutaneous incision above the distal aspect of the patient's fibula, obtained fluoroscopic imaging on AP and lateral views in order to get my starting point for the guidewire which would be at the distal fibula. It was centered on the AP and lateral views along the length of the fibula which was then introduced through the distal fibula, through the fracture and advanced proximally across the fracture site into the intramedullary canal of the fibula. We obtained fluoroscopic imaging to ensure that we were satisfied with fracture reduction as well as the guidewire placement. I then used an entry reamer in order to gain access into the intramedullary canal of the distal fibula. This was then removed and ensuring that we did not remove the guidewire. We then placed a cannulated reamer along the full length of the fibula which was introduced and removed. We removed both the guidewire as well as the intramedullary reamer and replaced it with a fibular nail. It was advanced with light taps of the mallet into the appropriate position and we then deployed the talons of the proximal nail in order to secure it into position. We then used the jig on the fibular nail in order to place two distal interlocking screws distal to the fracture in order to secure the nail into place. We then used the jig and placed two additional tetracortical syndesmotic screws into position, ensuring with fluoroscopy that we were satisfied with the fracture reduction as well as the tetracortical syndesmotic screws on AP and lateral views. We removed the jig from the fibular nail, copiously irrigated with three liters of normal saline using cysto tubing, placed vancomycin powder within the wound, closed with dermal layer of our three percutaneous incisions using 2-0 Vicryl. We closed the epidermis layer using 3-0 nylon and placed Xeroform over the surgical incisions followed by gauze, Webril and the patient's right lower extremity was placed in a well-padded L&U splint. The patient was then extubated without complication and transported to the postanesthesia care unit. The patient will be nonweightbearing for 6-8 weeks per the ankle fracture open reduction and internal fixation rehabilitative protocol. She will be given her postoperative pain medication as well as DVT chemoprophylaxis medication by her internal medicine doctor on the floor. The patient will follow up in our clinic in five days on the February, or at her earliest convenience if she is in rehab at that time. Her splint will be removed in two weeks and should be transitioned to a cam boot for early range of motion at two weeks. The patient was educated of the aforementioned findings after the surgery and her daughter, Hien will be notified as well.
[2021-02-16] MEDS: ENOXAPARIN 100MG/1ML SYRINGE (J1650 PER 10MG) SC SCH ×2 (09:39→20:57)
[2021-02-16] MEDS: METOPROLOL TART 50 MG TAB PO SCH ×2 (09:42→20:58)
[2021-02-16] MEDS: PANTOPRAZOLE 40MG TAB (PROTONIX) PO SCH (09:47)
--- NOTE | 2021-02-16 12:38 | IPNPDOC ---
Text Note Date of Service The patient was seen on 02/16/21. NOTE Subjective: Patient is a 80-year-old female with a PMHx of A fib (on Xarelto), CHF, HTN, Hx of DVT / PE, Colon CA (s/p Hemicolectomy), GERD who presented to the ER on 02/09 after a fall at home when she took a misstep. Patient had reported significant right ankle pain. In the ER, patient was found to have a right ankle fracture. She was admitted to the hospital service for further evaluation and treatment. Patient seen and examined at bedside. Currently patient has had an uneventful night. She denies any nausea, vomiting, chest pain, palpitations, abdominal discomfort, diarrhea, or urinary discomfort. Patient has had her surgical correction yesterday of her R ankle. Objective: Vitals (See below) General: Laying in bed, appears to be comfortable, no acute distress HEENT: AT and NC CVS: +S1S2 Lungs: Air entry appears to be fair bilaterally without any evidence of rhonchi, crackles or wheezing Abdomen: Soft without any distention or tenderness Extremities: Right lower extremity with dressing in place Imaging: Ankle XR 02/09: 1. Acute spiral fracture distal fibular. 2. Small ossific or calcific fragments distal to the medial malleolus may represent avulsion injuries. 3. Widening of the medial ankle mortise. Head CT 02/09: No acute intracranial abnormality. Foot XR 02/09: 1. Bones of the foot appear intact. 2. Please refer to report for x-ray of the ankle for additional details. Tib/Fib XR 02/09: Mildly displaced oblique fracture involving the distal aspect of the fibula. CXR 02/09: No acute process. Extremity CT 02/09: 1. Mildly displaced oblique fracture involving the distal aspect of the fibula. 2. Mildly displaced intra-articular fracture involving the anterior/lateral distal tibia adjacent to the fibula. 3. Avulsion fracture at the inferior tip of the medial malleolus. 4. Medial ankle mortise widening. Ankle XR 02/09: 1. Medial ankle mortise widening increases to 8 mm with stress. 2. Mildly displaced oblique fracture of the distal fibula. 3. Avulsion fracture of the tip of the medial malleolus. ECHO 02/11: 1. Study is if of fair technical quality, underlying atrial fibrillation with controlled ventricular rate. 2. Normal LV size with moderate LVH and preserved LV systolic function. 3. Aortic sclerosis with trace insufficiency and no stenosis. 4. Mild mitral and tricuspid insufficiency. 5. Normal central venous pressure and likely mild pulmonary hypertension. 6. Severe biatrial enlargement. 7. Borderline dilated ascending aorta. 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 - Ionized calcium elevated - PTH elevated / Vitamin D low - Imaging noted above - Will get parathyroid scan on Thursday - Will provide gentle hydration for 1 L only A fib - c/w rate control with metoprolol - s/p Xarelto - c/w full anticoagulation with Lovenox Chronic HFpEF / Severe Pulmonary HTN - Clinically does not appear to have any signs of fluid overload - ECHO noted above - Imaging noted above - s/p IV fluids CKD3 - Cr baseline of 1.4-1.6 - Cr slightly above baseline - Avoid nephrotoxic medications; s/p Ketorolac Hx DVT/PE - Xarelto on hold - c/w Lovenox therapeutic GERD - c/w Protonix DVT prophylaxis - c/w therapeutic dosing Disposition: - Pending clinical improvement - Will likely need rehab - Will get NM parathyroid scan on Thursday VS,Brandon, I+O VS, Brandon, I+O Laboratory Tests 02/16/21 05:20 Vital Signs Date Time Temp Pulse Resp B/P (MAP) Pulse Ox O2 Delivery O2 Flow Rate FiO2 02/16/21 09:42 112 123/83 02/16/21 09:00 97.6 16 98 Room Air 02/15/21 21:20 3.0 I&O- Last 24 Hours up to 6 AM 02/16/21 05:59 Intake Total 600 ml Output Total 410 ml Balance 190 ml JACINTA LAWRENCE MD Feb 16, 2021 12:37
[2021-02-16] MEDS ORDERED: NS 1,000 ML IV SCH (12:40)
[2021-02-17 02:00] VITALS: BP 129/90
[2021-02-17 06:00] VITALS: BP 131/84
[2021-02-17 06:01] LABS: BASO % 0.3 % (0.0-1.0); EOS # 0.3 10^3/uL (0.0-0.5); EOS % 2.5 % (0.0-3.0); HEMATOCRIT 38.1 % (36.0-47.0); HEMOGLOBIN 12.4 g/dl (12.0-15.5); LYMPH # 1.2 10^3/uL (1.5-5.0); MEAN CORPUSCULAR HEMOGLOBIN 30.6 pg (27.0-33.0); MEAN CORPUSCULAR HGB CONC 32.5 g/dl (32.0-36.5); MEAN CORPUSCULAR VOLUME 94.1 fl (80.0-96.0); MONO # 0.7 10^3/uL (0.0-0.8); NEUTROPHILS # 9.5 10^3/uL (1.5-8.5); NEUTROPHILS % 80.6 % (36.0-66.0); PLATELET COUNT, AUTOMATED 288 10^3/uL (150-450); RED BLOOD COUNT 4.05 10^6/uL (4.00-5.40); WHITE BLOOD COUNT 11.9 10^3/uL (4.0-10.0)
[2021-02-17 06:22] LABS: CALCIUM LEVEL 10.9 MG/DL (8.8-10.2); CREATININE FOR GFR 1.55 MG/DL (0.55-1.30); GLOMERULAR FILTRATION RATE 34.4 (>39); MAGNESIUM LEVEL 1.9 MG/DL (1.8-2.4); POTASSIUM SERUM 4.1 MEQ/L (3.5-5.1)
--- NOTE | 2021-02-17 10:00 | IPN ---
PROGRESS NOTE DATE: 02/16/2021 SUBJECTIVE: This is a 80-year-old female who is postop day one for right ankle open reduction and internal fixation with fibular nail. The patient is doing well today. She is resting comfortably in bed with well padded and well maintained L&U splint. OBJECTIVE: The patient had brisk cap refill to the digits. Her L&U splint is well padded and elevated. Her lower extremity block is still effective and she has minimal sensation to light touch at this point in time. However, I expect the block to wear off in the next 4-6 hours. Otherwise, she had brisk cap refill to the digits and well maintained L&U splint. She was able to flex her knee without trouble. She had 5/5 extensor strength of the quadriceps tendon and 5/5 strength of the hamstring musculature. ASSESSMENT: This is a 80-year-old female doing well postop day one from the aforementioned right ankle open reduction and internal fixation. PLAN: At this point in time I expect her to be optimized by internal medicine and discharge to rehabilitative center. Prior to her injury she lived at home and was household ambulator with a cane with home health services. Given her injury and the fact that she will likely be wheelchair-bound for 6-8 weeks, I believe that inpatient rehabilitation center is the most likely the most reasonable option for this patient. The facility can help with activities of daily living as well as provide physical therapy for her right lower extremity to include knee strengthening, hip strengthening and range of motion as tolerated to the right ankle. On the February, the patient will follow up in the orthopedic clinic at [facility] for splint removal and exchange to CAM boot/walking boot. At that time she will be able to shower as tolerated and range of motion to the right ankle as tolerated. She will be nonweightbearing for 6-8 weeks postoperatively.
[2021-02-17] MEDS: ENOXAPARIN 100MG/1ML SYRINGE (J1650 PER 10MG) SC SCH (10:48)
[2021-02-17] MEDS: METOPROLOL TART 50 MG TAB PO SCH ×2 (10:48→20:28)
[2021-02-17] MEDS: PANTOPRAZOLE 40MG TAB (PROTONIX) PO SCH (10:48)
[2021-02-17] MEDS: RIVAROXABAN 20 MG TAB (XARELTO) PO SCH (18:30)
[2021-02-18 06:00] VITALS: BP 152/93
[2021-02-18 06:07] LABS: BASO # 0.1 10^3/uL (0.0-0.2); BASO % 1.6 % (0.0-1.0); EOS # 0.5 10^3/uL (0.0-0.5); EOS % 9.4 % (0.0-3.0); HEMATOCRIT 37.4 % (36.0-47.0); HEMOGLOBIN 12.3 g/dl (12.0-15.5); LYMPH # 1.6 10^3/uL (1.5-5.0); LYMPH % 27.4 % (24.0-44.0); MEAN CORPUSCULAR HEMOGLOBIN 30.8 pg (27.0-33.0); MEAN CORPUSCULAR HGB CONC 32.9 g/dl (32.0-36.5); MEAN CORPUSCULAR VOLUME 93.5 fl (80.0-96.0); MONO # 0.5 10^3/uL (0.0-0.8); NEUTROPHILS # 2.9 10^3/uL (1.5-8.5); NEUTROPHILS % 51.5 % (36.0-66.0); PLATELET COUNT, AUTOMATED 260 10^3/uL (150-450); WHITE BLOOD COUNT 5.7 10^3/uL (4.0-10.0)
[2021-02-18 06:27] LABS: CALCIUM LEVEL 10.7 MG/DL (8.8-10.2); CREATININE FOR GFR 1.44 MG/DL (0.55-1.30); GLOMERULAR FILTRATION RATE 37.5 (>39); MAGNESIUM LEVEL 1.9 MG/DL (1.8-2.4); POTASSIUM SERUM 4.1 MEQ/L (3.5-5.1)
[2021-02-18] MEDS: PANTOPRAZOLE 40MG TAB (PROTONIX) PO SCH (09:15)
[2021-02-18] MEDS: METOPROLOL TART 50 MG TAB PO SCH ×2 (09:15→22:55)
[2021-02-18] MEDS ORDERED: MIRALAX *UNIT DOSE* 17GM PACKET PO PRN (11:50)
[2021-02-18] MEDS ORDERED: MOM 30ML SUSPENSION UDC PO PRN (11:50)
[2021-02-18] MEDS: SENOKOT S TAB PO SCH ×2 (12:06→22:55)
[2021-02-18] MEDS: BISACODYL 10 MG SUPP PR SCH ×2 (12:06→21:00)
[2021-02-18] MEDS: RIVAROXABAN 20 MG TAB (XARELTO) PO SCH (17:49)
[2021-02-18 22:00] VITALS: BP 133/86
[2021-02-19 06:00] VITALS: BP 142/94
[2021-02-19 06:51] LABS: BASO # 0.1 10^3/uL (0.0-0.2); EOS # 0.5 10^3/uL (0.0-0.5); EOS % 8.8 % (0.0-3.0); HEMATOCRIT 38.3 % (36.0-47.0); HEMOGLOBIN 12.7 g/dl (12.0-15.5); LYMPH # 1.5 10^3/uL (1.5-5.0); LYMPH % 25.3 % (24.0-44.0); MEAN CORPUSCULAR HEMOGLOBIN 30.8 pg (27.0-33.0); MEAN CORPUSCULAR HGB CONC 33.2 g/dl (32.0-36.5); MONO # 0.6 10^3/uL (0.0-0.8); MONO % 10.4 % (2.0-8.0); NEUTROPHILS # 3.1 10^3/uL (1.5-8.5); NEUTROPHILS % 53.3 % (36.0-66.0); PLATELET COUNT, AUTOMATED 286 10^3/uL (150-450); RED BLOOD COUNT 4.12 10^6/uL (4.00-5.40); WHITE BLOOD COUNT 5.8 10^3/uL (4.0-10.0)
[2021-02-19 07:05] LABS: CALCIUM LEVEL 11.2 MG/DL (8.8-10.2); CREATININE FOR GFR 1.47 MG/DL (0.55-1.30); GLOMERULAR FILTRATION RATE 36.6 (>39); MAGNESIUM LEVEL 2.2 MG/DL (1.8-2.4); POTASSIUM SERUM 4.4 MEQ/L (3.5-5.1)
[2021-02-19] MEDS: PANTOPRAZOLE 40MG TAB (PROTONIX) PO SCH (08:38)
[2021-02-19] MEDS: SENOKOT S TAB PO SCH ×2 (08:40→21:00)
[2021-02-19] MEDS: METOPROLOL TART 50 MG TAB PO SCH ×2 (08:40→22:03)
[2021-02-19] MEDS: BISACODYL 10 MG SUPP PR SCH ×2 (08:40→21:00)
[2021-02-19] MEDS ORDERED: ONDANSETRON 4 MG TAB PO PRN (10:30)
[2021-02-19] MEDS: RIVAROXABAN 20 MG TAB (XARELTO) PO SCH (18:27)
[2021-02-20 06:00] VITALS: BP 141/90
[2021-02-20 06:26] LABS: BASO # 0.1 10^3/uL (0.0-0.2); BASO % 0.6 % (0.0-1.0); EOS # 0.4 10^3/uL (0.0-0.5); HEMATOCRIT 39.1 % (36.0-47.0); HEMOGLOBIN 12.8 g/dl (12.0-15.5); LYMPH # 1.2 10^3/uL (1.5-5.0); LYMPH % 14.6 % (24.0-44.0); MEAN CORPUSCULAR HEMOGLOBIN 30.5 pg (27.0-33.0); MEAN CORPUSCULAR HGB CONC 32.7 g/dl (32.0-36.5); MEAN CORPUSCULAR VOLUME 93.1 fl (80.0-96.0); MONO # 0.7 10^3/uL (0.0-0.8); MONO % 8.1 % (2.0-8.0); NEUTROPHILS % 70.9 % (36.0-66.0); PLATELET COUNT, AUTOMATED 297 10^3/uL (150-450); WHITE BLOOD COUNT 8.4 10^3/uL (4.0-10.0)
[2021-02-20 06:32] LABS: CALCIUM LEVEL 11.6 MG/DL (8.8-10.2); CREATININE FOR GFR 1.52 MG/DL (0.55-1.30); GLOMERULAR FILTRATION RATE 35.2 (>39); MAGNESIUM LEVEL 2.3 MG/DL (1.8-2.4); POTASSIUM SERUM 4.5 MEQ/L (3.5-5.1)
[2021-02-20] MEDS: BISACODYL 10 MG SUPP PR SCH ×2 (09:00→21:00)
[2021-02-20] MEDS: SENOKOT S TAB PO SCH ×2 (09:00→21:00)
[2021-02-20] MEDS: PANTOPRAZOLE 40MG TAB (PROTONIX) PO SCH (09:43)
[2021-02-20] MEDS: METOPROLOL TART 50 MG TAB PO SCH ×2 (09:43→21:00)
[2021-02-20] MEDS: RIVAROXABAN 20 MG TAB (XARELTO) PO SCH (18:01)
[2021-02-21 06:00] VITALS: BP_SYST 134; BP_SYST 150; BP_DIAS 82; BP_DIAS 86
[2021-02-21 08:08] LABS: HEMATOCRIT 39.1 % (36.0-47.0); HEMOGLOBIN 12.8 g/dl (12.0-15.5); MEAN CORPUSCULAR HEMOGLOBIN 30.8 pg (27.0-33.0); MEAN CORPUSCULAR HGB CONC 32.7 g/dl (32.0-36.5); PLATELET COUNT, AUTOMATED 303 10^3/uL (150-450); RED BLOOD COUNT 4.16 10^6/uL (4.00-5.40); WHITE BLOOD COUNT 7.6 10^3/uL (4.0-10.0)
[2021-02-21 08:34] LABS: CALCIUM LEVEL 12.4 MG/DL (8.8-10.2); CREATININE FOR GFR 1.47 MG/DL (0.55-1.30); GLOMERULAR FILTRATION RATE 36.6 (>39); MAGNESIUM LEVEL 2.3 MG/DL (1.8-2.4); POTASSIUM SERUM 4.6 MEQ/L (3.5-5.1)
[2021-02-21] MEDS: BISACODYL 10 MG SUPP PR SCH ×2 (09:00→21:00)
[2021-02-21] MEDS: PANTOPRAZOLE 40MG TAB (PROTONIX) PO SCH (09:41)
[2021-02-21] MEDS: METOPROLOL TART 50 MG TAB PO SCH ×2 (09:41→21:17)
[2021-02-21] MEDS: SENOKOT S TAB PO SCH ×2 (09:42→21:00)
[2021-02-21] MEDS: RIVAROXABAN 20 MG TAB (XARELTO) PO SCH (17:19)
[2021-02-21] MEDS ORDERED: NS 1,000 ML IV SCH (17:50)
--- NOTE | 2021-02-21 18:13 | DS.PDOC ---
Discharge Summary General Date of Admission Feb 10, 2021 at 11:30 Date of Discharge 02/22/2021 Primary Care Physician: SHOSHANA SULLIVAN DO Attending Physician: ARCHIE KERR DO Specialist/Consultants Involve: GEO BAILEY MD Discharge Summary PROCEDURES PERFORMED DURING STAY: Right ankle open reduction and internal fixation with fibular intramedullary nail. ADMITTING DIAGNOSES: 1. Right ankle fracture. 2. A. fib with RVR 3. Chronic heart failure preserved ejection fraction/severe pulmonary hypertension 4. GERD 5. CKD DISCHARGE DIAGNOSES: 1. Right ankle fracture secondary to fall status post surgical correction. 2. Hypercalcemia, mild 3. Atrial fibrillation rate controlled 4. Chronic heart failure preserved ejection fraction/severe pulmonary hypertension. 5. CKD stage III 6. History of DVT/PE 7. GERD COMPLICATIONS/CHIEF COMPLAINT: Right Ankle Fracture. HISTORY OF PRESENT ILLNESS: Patient is a 80-year-old female with past medical history of A. fib on Xarelto, DVT, PE, colon cancer status post hemicolectomy, CHF, hypertension, GERD presents to the emergency department for evaluation after suffering a fall. Patient states that she normally ambulates with a cane and her baseline. Patient states that today she was trying to get around her home without it and misjudged how far away an object was to lean on happened to fall. Patient states that she is not dizzy prior to the fall and was experiencing no chest pain or palpitations. Patient did not strike her head. After falling, patient began to experience severe pain in her right ankle. Patient tells me that as of now, only complaint is right ankle pain being hungry. Patient denies any fevers, chills, headaches, abdominal pain, nausea, vomiting, diarrhea, constipation, syncope, paresthesias, paralysis.. HOSPITAL COURSE: Patient was admitted for right ankle fracture. Patient had open reduction internal fixation performed on 02/16/2021. Patient was found to have mild hypercalcemia throughout her hospitalization which was thought to be secondary to either primary or tertiary hyperparathyroidism. Patient's intact parathyroid hormone was elevated and her vitamin D level was low. Patient was ordered a thyroid ultrasound which did not show any adenomas in the parathyroid glands. Patient refused to have parathyroid nuclear scan. Patient had hypercalcemia that was improved with IV fluid hydration. Patient did not have any symptoms of her hypercalcemia. Patient may need bisphosphonate therapy in order to help with the hypercalcemia as the patient may not be a surgical candidate for parathyroidectomy. Patient's atrial fibrillation with RVR came back into the normal range with metoprolol. Patient's chronic kidney disease re mained stable. Patient was deemed ready for discharge on 02/17/2021 however, a bed was not found in rehab facility. Patient did receive a bed in a rehab facility and was going to be discharged on 02/22/2021. Patient was discharged to [facility] rehab on 02/22/2021. I spoke with orthopedic surgery who stated the patient can follow-up with them on 02/28/[address] Ghotra to discuss transitioning from cast to CAM boot. DISCHARGE MEDICATIONS: Please see below. ALLERGIES: Please see below. PHYSICAL EXAMINATION ON DISCHARGE: VITAL SIGNS: Please see below. General: Alert female who is laying in bed when I walked in. Patient not appear to be in any acute distress. HEENT: Normocephalic, atraumatic, moist mucous membranes. Neck: No lymphadenopathy or thyromegaly Cardiac: Regular rate and rhythm, no murmurs, normal S1, normal S2 Pulm: Clear to auscultation bilaterally. No wheezes, rhonchi, rales Abd: Nondistended, nontender to palpation, normal bowel sounds Ext: No edema bilateral lower extremities LABORATORY DATA: Please see below. IMAGING: Right ankle x-ray performed on 02/09/2021 is reported to show acute spiral fracture of the distal fibula. Small ossific or calcific fragments distal to the medial malleolus may represent avulsion injuries. Widening of the medial ankle mortise. CT of the head performed without contrast on 02/09/2021 is reported to show no acute intracranial abnormality. X-ray of the right foot performed on 02/09/2021 is reported to show bones of the foot appear intact. Please refer to report of the x-ray of the ankle for additional details. Right tibia-fibula x-ray performed on 02/09/2021 was reported to show mildly displaced oblique fracture involving the distal aspect of the fibula. Chest x-ray performed on 02/09/2021 was reported to show no acute process. CT of the ankle without contrast performed on February 09, 2021 was reported to show mildly displaced oblique fracture involving the distal aspect of the fibula. Mildly displaced intra-articular fracture involving the anterior lateral distal tibia adjacent to the fibula. Avulsion fracture of the inferior tip of the medial malleolus. Medial ankle mortise widening Right ankle x-ray performed on February 09, 2021 is reported to medial ankle mortise widening to 8 mm with stress. Mildly displaced oblique fracture of the distal fibula. Avulsion fracture of the tip of the medial malleolus. Thyroid ultrasound performed on February 15, 2021 was reported to show homogenous thyroid lobes without discrete mass. Somewhat thickened isthmus and fullness of the lobe without discrete nodule or heterogeneity. Specifically there are no posterior nodules to suggest ultrasound evidence for parathyroid adenoma. A parathyroid nuclear scan is much more sensitive and search for that finding. PROGNOSIS: Fair ACTIVITY: As tolerated. DIET: 2 g sodium DISCHARGE PLAN: Discharge to [facility] rehab DISPOSITION: . DISCHARGE INSTRUCTIONS: 1. Follow-up with provider at [facility] rehab. 2. Follow-up with Dr. Ghotra orthopedic surgery on February 28, 2021 for CAM boot 3. Return the emergency department symptoms worsen ITEMS TO FOLLOWUP ON ON OUTPATIENT: 1. Following up hypercalcemia. Patient may need to be started on bisphosphonates. DISCHARGE CONDITION: Stable. TIME SPENT ON DISCHARGE: 35 minutes. Vital Signs/I&Os Vital Signs Date Time Temp Pulse Resp B/P (MAP) Pulse Ox O2 Delivery O2 Flow Rate FiO2 02/21/21 09:41 100 150/80 02/21/21 06:00 98.0 14 95 Room Air 02/15/21 21:20 3.0 I&O- Last 24 Hours up to 6 AM 02/21/21 06:00 Intake Total 180 ml Balance 180 ml Laboratory Data Labs 24H Laboratory Tests 2 02/21/21 07:48: Nucleated Red Blood Cells % (auto) 0.0, Anion Gap 3L, Glomerular Filtration Rate 36.6L, Calcium Level 12.4H, Magnesium Level 2.3 CBC/BMP Laboratory Tests 02/21/21 07:48 Discharge Medications Scheduled Bifidobacterium Infantis (Align) 4 Mg Capsule, 1 CAP PO DAILY, (Reported) Metoprolol Tartrate (Metoprolol Tartrate) 50 Mg Tab, 50 MG PO BID, (Reported) Pantoprazole Sodium (Pantoprazole Sodium) 40 Mg Tab, 40 MG PO DAILY, (Reported) Rivaroxaban (Xarelto) 10 Mg Tab, 20 MG PO DAILY, (Reported) Miscellaneous Medications [Med Rec Comment] , (Reported) UNABLE TO VERIFY WITH PT. USED EXTERNAL MED HISTORY Allergies Coded Allergies: ENVIRONMENTAL (Unverified Allergy, Mild, 10/06/16) SEAFOOD (Verified Adverse Reaction, Mild, NAUSEA/VOMITING, 08/18/16) ARCHIE KERR DO Feb 21, 2021 18:13
[2021-02-22 06:00] VITALS: BP 137/84
[2021-02-22 06:45] LABS: CALCIUM LEVEL 12.1 MG/DL (8.8-10.2); CREATININE FOR GFR 1.46 MG/DL (0.55-1.30); GLOMERULAR FILTRATION RATE 36.9 (>39); POTASSIUM SERUM 4.2 MEQ/L (3.5-5.1)
[2021-02-22] MEDS: BISACODYL 10 MG SUPP PR SCH ×2 (09:00→20:23)
[2021-02-22] MEDS: METOPROLOL TART 50 MG TAB PO SCH ×2 (09:39→20:29)
[2021-02-22] MEDS: SENOKOT S TAB PO SCH ×2 (09:39→20:29)
[2021-02-22] MEDS: PANTOPRAZOLE 40MG TAB (PROTONIX) PO SCH (09:40)
[2021-02-22] MEDS: RIVAROXABAN 20 MG TAB (XARELTO) PO SCH (17:35)
--- NOTE | 2021-02-22 19:19 | IPNPDOC ---
Text Note Date of Service The patient was seen on 02/21/21. NOTE Subjective: Patient is a 80-year-old female who presented to the hospital after a fall was found to have a right ankle fracture. Patient was going to be discharged on 02/22/2021 to [facility] rehab however, patient's bed offer was revoked. Discharge summary had been written and orders have been placed on 02/21/2021 however, patient does not appear to be able to be discharged in the near future. Patient is feeling well today and states that her ankle is feeling better. Patient states she is able to move her toes for the first time in a while. Patient does not have any other complaints at this time. Review of systems: General: Patient denies fevers HEENT: Patient denies headaches Cardiovascular: Patient denies chest pain Respiratory: Patient denies shortness of breath, cough GI: Patient denies abdominal pain, nausea, vomiting, diarrhea : Patient denies increased frequency or pain with urination Extremities: Patient denies swelling or pain in extremities Neurological: Patient denies numbness or tingling in legs Physical exam: Vitals: See below General: Alert female was laying in bed when I walked in the room. She did not appear to be in any acute distress. HEENT: Normocephalic, atraumatic, moist mucous membranes. Neck: No lymphadenopathy or thyromegaly Cardiac: Regular rate and rhythm, no murmurs, normal S1, normal S2 Pulm: Clear to auscultation bilaterally. No wheezes, rhonchi, rales Abd: Nondistended, nontender to palpation, normal bowel sounds Ext: No edema bilateral lower extremities patient had cast over the right ankle. Brisk capillary refill and intact sensation over the toes of the right foot Labs: See below Imaging: No new imaging has been performed Assessment/plan: 80-year-old female who presented to the emergency department after falling who is status post right ankle fracture. 1. Right ankle fracture secondary to fall status post surgical correction on 02/15/2021. Continues IV morphine and physical therapy. We will attempt to find a bed for rehabilitation. 2. Hypercalcemia. Most likely secondary to primary hyperparathyroidism. Patient will be started on alendronate therapy and we will continue to monitor. 3. Atrial fibrillation. Currently rate controlled. Continue with Xarelto. 4. Chronic heart failure preserved ejection fraction with severe pulmonary hypertension, does not appear to be in exacerbation today. 5. CKD stage III. Creatinine at baseline. Status post Toradol. 6. History of DVT/PE. Continue with Xarelto. 7. GERD. Continue Protonix. DVT Prophylaxis: Xarelto Disposition: Pending placement in rehab. Patient is supposed to follow-up in the orthopedic office on 02/28/2021 for placement of CAM boot VS,Fishbone, I+O VS, Fishbone, I+O Laboratory Tests 02/22/21 05:40 Vital Signs Date Time Temp Pulse Resp B/P (MAP) Pulse Ox O2 Delivery O2 Flow Rate FiO2 02/22/21 09:39 79 133/84 02/22/21 06:00 99.6 18 98 Room Air I&O- Last 24 Hours up to 6 AM 02/22/21 06:00 Intake Total 1480 ml Balance 1480 ml ARCHIE KERR DO Feb 22, 2021 19:19
[2021-02-23 06:00] VITALS: BP 147/98
[2021-02-23] MEDS ORDERED: ALENDRONATE 35MG TABLET PO SCH (07:00)
[2021-02-23] MEDS: BISACODYL 10 MG SUPP PR SCH ×2 (09:00→20:49)
[2021-02-23] MEDS: PANTOPRAZOLE 40MG TAB (PROTONIX) PO SCH (11:08)
[2021-02-23] MEDS: METOPROLOL TART 50 MG TAB PO SCH ×2 (11:08→20:56)
[2021-02-23] MEDS: SENOKOT S TAB PO SCH ×2 (11:11→20:54)
[2021-02-23] MEDS: RIVAROXABAN 20 MG TAB (XARELTO) PO SCH (17:28)
[2021-02-24 06:00] VITALS: BP 144/89
[2021-02-24] MEDS: SENOKOT S TAB PO SCH ×2 (08:57→20:05)
[2021-02-24] MEDS: BISACODYL 10 MG SUPP PR SCH ×2 (08:58→19:25)
[2021-02-24] MEDS: METOPROLOL TART 50 MG TAB PO SCH ×2 (08:58→20:06)
[2021-02-24] MEDS: PANTOPRAZOLE 40MG TAB (PROTONIX) PO SCH (08:58)
[2021-02-24] MEDS: RIVAROXABAN 20 MG TAB (XARELTO) PO SCH (18:06)
[2021-02-25 06:00] VITALS: BP 145/85
[2021-02-25] MEDS ORDERED: ALEN35TA56 PO (08:14)
[2021-02-25 08:29] VITALS: BP 143/97
[2021-02-25] MEDS: SENOKOT S TAB PO SCH (08:29)
[2021-02-25] MEDS: METOPROLOL TART 50 MG TAB PO SCH (08:29)
[2021-02-25] MEDS: PANTOPRAZOLE 40MG TAB (PROTONIX) PO SCH (08:29)
[2021-02-25] MEDS: BISACODYL 10 MG SUPP PR SCH (08:30)
--- NOTE | 2021-02-25 10:04 | DS.PDOC ---
Discharge Summary General Date of Admission Feb 10, 2021 at 11:30 Date of Discharge 02/25/2021 Primary Care Physician: SHOSHANA SULLIVAN DO Attending Physician: ARCHIE KERR DO Specialist/Consultants Involve: GEO BAILEY MD Discharge Summary PROCEDURES PERFORMED DURING STAY: Right ankle open reduction internal fixation with fibular intramedullary nail. ADMITTING DIAGNOSES: 1. Right ankle fracture. 2. A. fib with RVR 3. Chronic heart failure preserved ejection fraction/severe pulmonary hypertension 4. GERD 5. CKD DISCHARGE DIAGNOSES: 1. Right ankle fracture secondary to fall status post surgical correction. 2. Hypercalcemia, mild 3. Atrial fibrillation rate controlled 4. Chronic heart failure preserved ejection fraction/severe pulmonary hypertension. 5. CKD stage III 6. History of DVT/PE 7. GERD COMPLICATIONS/CHIEF COMPLAINT: Right Ankle Fracture. HISTORY OF PRESENT ILLNESS: Patient is a 80-year-old female with past medical history of A. fib on Xarelto, DVT, PE, colon cancer status post hemicolectomy, CHF, hypertension, GERD presents to the emergency department for evaluation after suffering a fall. Patient states that she normally ambulates with a cane and her baseline. Patient states that today she was trying to get around her home without it and misjudged how far away an object was to lean on happened to fall. Patient states that she is not dizzy prior to the fall and was experiencing no chest pain or palpitations. Patient did not strike her head. After falling, patient began to experience severe pain in her right ankle. Patient tells me that as of now, only complaint is right ankle pain being hungry. Patient denies any fevers, chills, headaches, abdominal pain, nausea, vomiting, diarrhea, constipation, syncope, paresthesias, paralysis. HOSPITAL COURSE: Patient was admitted for right ankle fracture. Patient had open reduction internal fixation performed on 02/16/2021. Patient was found to have mild hypercalcemia throughout her hospitalization which was thought to be secondary to either primary or tertiary hyperparathyroidism. Patient's intact parathyroid hormone was elevated and her vitamin D level was low. Patient was ordered a thyroid ultrasound which did not show any adenomas in the parathyroid glands. Patient refused to have parathyroid nuclear scan. Patient had hypercalcemia that was improved with IV fluid hydration. Patient did not have any symptoms of her hypercalcemia. Patient's atrial fibrillation with RVR came back into the normal range with metoprolol. Patient's chronic kidney disease remained stable. Patient was deemed ready for discharge on 02/17/2021 however, a bed was not found in rehab facility. Patient was started on alendronate to help with the patient's hypercalcemia and with bone density as the patient most likely has osteoporosis. Patient did receive a bed in a rehab facility and was going to be discharged on 02/25/2021 patient was discharged to [facility] bed on 02/25/2021. I spoke with orthopedic surgery who stated the patient can follow-up with them on 02/28/[address] Ghotra to discuss transitioning from cast to CAM boot. DISCHARGE MEDICATIONS: Please see below. ALLERGIES: Please see below. PHYSICAL EXAMINATION ON DISCHARGE: VITAL SIGNS: Please see below. General: Alert and oriented female patient who is sitting on mammogram. Patient not appear to be in acute distress. HEENT: Normocephalic, atraumatic, moist mucous membranes. Neck: No lymphadenopathy or thyromegaly Cardiac: Regular rate and rhythm, no murmurs, normal S1, normal S2 Pulm: Clear to auscultation bilaterally. No wheezes, rhonchi, rales Abd: Nondistended, nontender to palpation, normal bowel sounds Ext: No edema bilateral lower extremities. Patient's right ankle is wrapped in boot and patient is neurovascularly intact distal to the wrap. LABORATORY DATA: Please see below. IMAGING: Right ankle x-ray performed on 02/09/2021 is reported to show acute spiral fracture of the distal fibula. Small ossific or calcific fragments distal to the medial malleolus may represent avulsion injuries. Widening of the medial ankle mortise. CT of the head performed without contrast on 02/09/2021 is reported to show no acute intracranial abnormality. X-ray of the right foot performed on 02/09/2021 is reported to show bones of the foot appear intact. Please refer to report of the x-ray of the ankle for additional details. Right tibia-fibula x-ray performed on 02/09/2021 was reported to show mildly displaced oblique fracture involving the distal aspect of the fibula. Chest x-ray performed on 02/09/2021 was reported to show no acute process. CT of the ankle without contrast performed on February 09, 2021 was reported to show mildly displaced oblique fracture involving the distal aspect of the fibula. Mildly displaced intra-articular fracture involving the anterior lateral distal tibia adjacent to the fibula. Avulsion fracture of the inferior tip of the medial malleolus. Medial ankle mortise widening Right ankle x-ray performed on February 09, 2021 is reported to medial ankle mortise widening to 8 mm with stress. Mildly displaced oblique fracture of the distal fibula. Avulsion fracture of the tip of the medial malleolus. Thyroid ultrasound performed on February 15, 2021 was reported to show homogenous thyroid lobes without discrete mass. Somewhat thickened isthmus and fullness of the lobe without discrete nodule or heterogeneity. Specifically there are no posterior nodules to suggest ultrasound evidence for parathyroid adenoma. A parathyroid nuclear scan is much more sensitive and search for that finding. PROGNOSIS: Fair ACTIVITY: As tolerated. DIET: 2 g sodium DISCHARGE PLAN: Discharged to [facility] bed DISPOSITION: . DISCHARGE INSTRUCTIONS: 1. Follow-up with provider at [facility]. 2. Follow-up with Dr. Ghotra of orthopedic surgery on 02/28/2021 for CAM boot 3. Return emergency department symptoms worsen. ITEMS TO FOLLOWUP ON ON OUTPATIENT: 1. Continue to follow hypocalcemia. DISCHARGE CONDITION: Stable. TIME SPENT ON DISCHARGE: 25 minutes. Vital Signs/I&Os Vital Signs Date Time Temp Pulse Resp B/P (MAP) Pulse Ox O2 Delivery O2 Flow Rate FiO2 02/25/21 08:29 75 143/97 02/25/21 06:00 97.8 18 97 Room Air I&O- Last 24 Hours up to 6 AM 02/25/21 06:00 Intake Total 1560 ml Output Total 0 ml Balance 1560 ml Laboratory Data Labs 24H Laboratory Tests 2 02/25/21 08:28: Coronavirus (COVID-19)(PCR) NEGATIVE Discharge Medications Scheduled Alendronate Sodium (Alendronate Sodium) 35 Mg Tablet, 35 MG PO Sa@07 Bifidobacterium Infantis (Align) 4 Mg Capsule, 1 CAP PO DAILY, (Reported) Metoprolol Tartrate (Metoprolol Tartrate) 50 Mg Tab, 50 MG PO BID, (Reported) Pantoprazole Sodium (Pantoprazole Sodium) 40 Mg Tab, 40 MG PO DAILY, (Reported) Rivaroxaban (Xarelto) 10 Mg Tab, 20 MG PO DAILY, (Reported) Miscellaneous Medications [Med Rec Comment] , (Reported) UNABLE TO VERIFY WITH PT. USED EXTERNAL MED HISTORY Allergies Coded Allergies: ENVIRONMENTAL (Unverified Allergy, Mild, 10/06/16) SEAFOOD (Verified Adverse Reaction, Mild, NAUSEA/VOMITING, 08/18/16) ARCHIE KERR DO Feb 25, 2021 10:04
== END 2021-02-25 11:20 | DRG 493 ==
LOC: M ED 20:49 → M ED INP 02-10 00:52 → OBSVTOIN 02-10 11:30 → M MSPAV 02-11 09:10
PROVIDERS: ADMIT Internal Medicine; ATTEND Family Medicine
PROC: 0QS Lower Bones, Reposition (ICD-10-PCS; principal; 2021-02-15 20:00)
DX: S82.441A Displaced spiral fracture of shaft of right fibula, initial encounter for closed fracture (principal); I50.32 Chronic diastolic (congestive) heart failure; I13.0 Hypertensive heart and chronic kidney disease with heart failure and stage 1 through stage 4 chronic kidney disease, or unspecified chronic kidney disease; I48.91 Unspecified atrial fibrillation; K21.9 Gastro-esophageal reflux disease without esophagitis; I27.20 Pulmonary hypertension, unspecified; N18.30 Chronic kidney disease, stage 3 unspecified; W01.0XXA Fall on same level from slipping, tripping and stumbling without subsequent striking against object, initial encounter; Y92.009 Unspecified place in unspecified non-institutional (private) residence as the place of occurrence of the external cause; Z86.711 Personal history of pulmonary embolism; Z86.718 Personal history of other venous thrombosis and embolism; Z87.891 Personal history of nicotine dependence; Z79.01 Long term (current) use of anticoagulants; Z79.899 Other long term (current) drug therapy; Z91.013 Allergy to seafood; E21.0 Primary hyperparathyroidism

== ENCOUNTER → 2021-04-23 | Outpatient (CLI) | payer MEDICARE, OTHER ==
[~2021-04-23] MED LIST changes: +ALEN35TA56 PO; +ALIG4CAP PO; +MED REC COMMENT
== END ==
LOC: M SOG 08:08
PROVIDERS: ATTEND Orthopaedic Surgery
DX: M25.571 Pain in right ankle and joints of right foot (principal); Z48.89 Encounter for other specified surgical aftercare

== ENCOUNTER → 2022-01-27 | Outpatient (REF) | payer MEDICARE, OTHER | LOC: M SFHCCLAY 12:15 | PROVIDERS: ATTEND Nurse Practitioner Family | DX: Z53.9 Procedure and treatment not carried out, unspecified reason (principal) ==

== ENCOUNTER → 2022-05-13 | Outpatient (REF) | payer MEDICARE, OTHER ==
[2022-05-14 12:03] LABS: HEMATOCRIT 44.4 % (36.0-47.0); HEMOGLOBIN 14.6 g/dl (12.0-15.5); MEAN CORPUSCULAR HEMOGLOBIN 32.2 pg (27.0-33.0); MEAN CORPUSCULAR HGB CONC 32.9 g/dl (32.0-36.5); PLATELET COUNT, AUTOMATED 294 10^3/uL (150-450); RED BLOOD COUNT 4.53 10^6/uL (4.00-5.40); WHITE BLOOD COUNT 8.5 10^3/uL (4.0-10.0)
[2022-05-14 12:11] LABS: THYROID STIMULATING HORMONE 1.609 uIU/ML (0.55-4.78)
[2022-05-14 12:14] LABS: ALBUMIN 3.1 G/DL (3.2-5.2); BILIRUBIN,TOTAL 0.6 MG/DL (0.3-1.2); CALCIUM LEVEL 10.6 MG/DL (8.3-10.6); CHOLESTEROL RISK RATIO 2.45 (<5); CREATININE FOR GFR 1.45 MG/DL (0.55-1.30); FREE T4 1.03 NG/DL (0.89-1.76); GLOMERULAR FILTRATION RATE 37.1 (>39); HDL CHOLESTEROL 55.9 MG/DL (>40); LDL CHOLESTEROL 59.1 MG/DL (<100); POTASSIUM SERUM 3.9 MMOL/L (3.5-5.1); TOTAL PROTEIN 5.7 G/DL (5.7-8.2)
== END ==
LOC: M SFHCCLAY 15:25
PROVIDERS: ATTEND Nurse Practitioner Family
DX: E21.3 Hyperparathyroidism, unspecified (principal); I12.9 Hypertensive chronic kidney disease with stage 1 through stage 4 chronic kidney disease, or unspecified chronic kidney disease; I48.91 Unspecified atrial fibrillation; N18.32 Chronic kidney disease, stage 3b

== ENCOUNTER → 2022-11-11 | Outpatient (REF) | payer MEDICARE, OTHER ==
[2022-11-11 17:56] LABS: IONIZED CALCIUM 5.5 MG/DL (4.5-5.3)
[2022-11-11 18:33] LABS: HEMATOCRIT 44.1 % (36.0-47.0); HEMOGLOBIN 14.5 g/dl (12.0-15.5); MEAN CORPUSCULAR HEMOGLOBIN 32.1 pg (27.0-33.0); MEAN CORPUSCULAR HGB CONC 32.9 g/dl (32.0-36.5); MEAN CORPUSCULAR VOLUME 97.6 fl (80.0-96.0); PLATELET COUNT, AUTOMATED 271 10^3/uL (150-450); RED BLOOD COUNT 4.52 10^6/uL (4.00-5.40); WHITE BLOOD COUNT 6.3 10^3/uL (4.0-10.0)
[2022-11-11 18:41] LABS: ALBUMIN 3.2 G/DL (3.2-5.2); BILIRUBIN,TOTAL 0.7 MG/DL (0.3-1.2); CALCIUM LEVEL 10.6 MG/DL (8.3-10.6); CHOLESTEROL RISK RATIO 2.21 (<5); CREATININE FOR GFR 1.43 MG/DL (0.55-1.30); GLOMERULAR FILTRATION RATE 37.6 (>32); HDL CHOLESTEROL 64.9 MG/DL (>40); LDL CHOLESTEROL 57.9 MG/DL (<100); NON-HDL-C 79.1 MG/DL; POTASSIUM SERUM 4.5 MMOL/L (3.5-5.1); PTH INTACT 623.9 PG/ML (18.5-88.0)
[2022-11-11 18:42] LABS: FREE T4 1.27 NG/DL (0.89-1.76); THYROID STIMULATING HORMONE 1.804 uIU/ML (0.55-4.78)
== END ==
LOC: M SFHCCLAY 11:41
PROVIDERS: ATTEND Nurse Practitioner Family
DX: E21.3 Hyperparathyroidism, unspecified (principal); N18.32 Chronic kidney disease, stage 3b; I48.91 Unspecified atrial fibrillation